=== PATIENT | female | born 1945 | race Caucasian/White ===

== ENCOUNTER 2021-07-30 09:58 | Outpatient (REF) | payer MEDICARE, SELFPAY ==
[2021-07-30 11:17] LABS: MANUAL DIFF FLAG NO
[2021-07-30 11:31] LABS: Basophils Percent Auto 0.2 % (0-2); Eosinophils Absolute Auto 0.1 X10*3/uL (0.0-0.4); Hematocrit 43.4 % (37.0-47.0); Hemoglobin 13.3 g/dl (12.0-16.0); Imm Gran Abs Auto 0.04 X10*3/uL (0.00-0.03); Imm Gran Pct Auto 0.4 % (0.0-0.4); Lymphocytes Absolute Auto 1.9 X10*3/uL (1.2-4.9); Lymphocytes Percent Auto 20.2 % (20-40); Mean Corpuscular HGB Conc 30.6 g/dl (31.0-35.0); Mean Corpuscular Hemoglobin 28.1 pg (27.0-33.0); Mean Corpuscular Volume 91.6 fL (80.0-98.0); Mean Platelet Volume 11.6 fL (9.4-12.3); Monocytes Absolute Auto 0.9 X10*3/uL (0.1-1.2); Monocytes Percent Auto 9.6 % (2-11); Neutrophils Absolute Auto 6.3 x10*3/uL (2.0-8.3); Neutrophils Percent Auto 68.6 % (45-73); Platelet Count 265 X10*3/uL (160-400); Red Blood Count 4.74 X10*6/uL (4.20-5.50); Red Cell Distribution Width 14.3 % (11.0-16.0); White Blood Count 9.2 X10*3/uL (4.8-10.8)
[2021-07-30 11:38] LABS: INTERNATIONAL NORM RATIO 1.9 (0.9-1.1); Prothrombin Time 21.9 SEC (9.9-13.0)
[2021-07-30 12:02] LABS: Alanine Aminotransferase 16 U/L (0-31); Albumin Level 4.3 g/dL (3.5-5.0); Alkaline Phosphatase 65 U/L (39-117); Anion Gap 13 (12-20); Aspartate Amino Transferase 19 U/L (5-31); Bilirubin Total 0.5 mg/dL (0.0-1.0); Blood Urea Nitrogen 22 mg/dL (9-16); Calcium 9.6 mg/dL (8.4-10.2); Carbon Dioxide 27 mmol/L (22-29); Chloride 107 mmol/L (96-108); Cholesterol 201 mg/dL; Estimated Glomerular Filt Rate 44; Glucose Fasting 101 mg/dL (60-99); HDL Cholesterol 38 mg/dL; LDL Cholesterol Calculated 106 mg/dl; Potassium 4.6 mmol/L (3.3-5.1); Sodium 142 mmol/L (135-145); Total Protein 6.8 g/dL (6.5-8.0); Triglycerides 287 mg/dL
[2021-07-30 12:11] LABS: TSH reflex Free T4 1.17 uIU/mL (0.32-4.0); Vitamin D 25-OH Total 47.7 ng/mL (>30)
== END 2021-07-30 09:59 | disposition home or self-care (01) ==
LOC: HO.HMGCLDS 09:58
PROVIDERS: PCP Internal Medicine; Visit Provider Internal Medicine
DX: I48.91 Unspecified atrial fibrillation (principal); N18.9 Chronic kidney disease, unspecified; E78.5 Hyperlipidemia, unspecified; I10 Essential (primary) hypertension; J45.20 Mild intermittent asthma, uncomplicated; M19.90 Unspecified osteoarthritis, unspecified site; Z79.01 Long term (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; Z51.81 Encounter for therapeutic drug level monitoring
CPT/HCPCS: 36415; 80053; 80061; 82306; 84443; 85025; 85610

== ENCOUNTER 2021-08-06 09:33 | Outpatient (REF) | payer MEDICARE, SELFPAY ==
[2021-08-06 11:44] LABS: INTERNATIONAL NORM RATIO 2.1 (0.9-1.1)
== END 2021-08-06 09:34 | disposition home or self-care (01) ==
LOC: HO.HMGCLDS 09:33
PROVIDERS: Visit Provider Internal Medicine
DX: I48.91 Unspecified atrial fibrillation (principal)
CPT/HCPCS: 36415; 85610

== ENCOUNTER 2021-08-14 10:51 | Outpatient (REF) | payer MEDICARE, SELFPAY ==
[2021-08-14 12:01] LABS: INTERNATIONAL NORM RATIO 2.4 (0.9-1.1); Prothrombin Time 27.6 SEC (9.9-13.0)
== END 2021-08-14 10:52 | disposition home or self-care (01) ==
LOC: HO.HMGCLR 10:51
PROVIDERS: PCP Internal Medicine; Visit Provider Internal Medicine
DX: I48.91 Unspecified atrial fibrillation (principal)
CPT/HCPCS: 36415; 85610

== ENCOUNTER → 2021-08-30 10:27 | Outpatient (BNVA) | payer MEDICARE, SELFPAY | PROVIDERS: PCP Internal Medicine; Visit Provider Internal Medicine | DX: I48.91 Unspecified atrial fibrillation (principal); Z51.81 Encounter for therapeutic drug level monitoring; Z79.01 Long term (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 | CPT/HCPCS: 85610; 99202 ==

== ENCOUNTER → 2021-09-13 10:32 | Outpatient (BNVA) | payer MEDICARE, SELFPAY | PROVIDERS: PCP Internal Medicine; Visit Provider Internal Medicine | DX: I48.91 Unspecified atrial fibrillation (principal); Z51.81 Encounter for therapeutic drug level monitoring; Z79.01 Long term (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 | CPT/HCPCS: 85610; 99211 ==

== ENCOUNTER → 2021-09-30 15:27 | Outpatient (BNVA) | payer MEDICARE, SELFPAY | PROVIDERS: PCP Internal Medicine; Visit Provider Internal Medicine | DX: I48.91 Unspecified atrial fibrillation (principal); Z51.81 Encounter for therapeutic drug level monitoring; Z79.01 Long term (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 | CPT/HCPCS: 85610; 99211 ==

== ENCOUNTER → 2021-10-21 10:53 | Outpatient (BNVA) | payer MEDICARE, SELFPAY | PROVIDERS: PCP Internal Medicine; Visit Provider Internal Medicine | DX: I48.91 Unspecified atrial fibrillation (principal); Z79.01 Long term (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; Z51.81 Encounter for therapeutic drug level monitoring | CPT/HCPCS: 85610; 99211 ==

== ENCOUNTER → 2021-11-12 11:23 | Outpatient (BNVA) | payer MEDICARE, SELFPAY | PROVIDERS: PCP Internal Medicine; Visit Provider Internal Medicine | DX: I48.91 Unspecified atrial fibrillation (principal); Z51.81 Encounter for therapeutic drug level monitoring; Z79.01 Long term (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 | CPT/HCPCS: 85610; 99211 ==

== ENCOUNTER 2021-12-04 10:06 | Outpatient (REF) | payer MEDICARE, SELFPAY ==
[2021-12-04 11:13] LABS: MANUAL DIFF FLAG NO
[2021-12-04 11:26] LABS: Basophils Percent Auto 0.2 % (0-2); Eosinophils Absolute Auto 0.2 X10*3/uL (0.0-0.4); Eosinophils Percent Auto 2.1 % (0-4); Hematocrit 43.9 % (37.0-47.0); Hemoglobin 13.6 g/dl (12.0-16.0); Imm Gran Abs Auto 0.03 X10*3/uL (0.00-0.03); Imm Gran Pct Auto 0.3 % (0.0-0.4); Lymphocytes Absolute Auto 1.9 X10*3/uL (1.2-4.9); Lymphocytes Percent Auto 21.5 % (20-40); Mean Corpuscular Hemoglobin 28.4 pg (27.0-33.0); Mean Corpuscular Volume 91.6 fL (80.0-98.0); Mean Platelet Volume 11.4 fL (9.4-12.3); Monocytes Percent Auto 11.3 % (2-11); Neutrophils Absolute Auto 5.7 x10*3/uL (2.0-8.3); Neutrophils Percent Auto 64.6 % (45-73); Platelet Count 248 X10*3/uL (160-400); Red Blood Count 4.79 X10*6/uL (4.20-5.50); Red Cell Distribution Width 14.5 % (11.0-16.0); White Blood Count 8.9 X10*3/uL (4.8-10.8)
[2021-12-04 11:36] LABS: Alanine Aminotransferase 13 U/L (0-31); Anion Gap 12 (12-20); Aspartate Amino Transferase 19 U/L (5-31); Blood Urea Nitrogen 21 mg/dL (9-16); Calcium 9.5 mg/dL (8.4-10.2); Carbon Dioxide 29 mmol/L (22-29); Chloride 105 mmol/L (96-108); Cholesterol 188 mg/dL; Estimated Glomerular Filt Rate 39; Glucose Fasting 107 mg/dL (60-99); HDL Cholesterol 37 mg/dL; LDL Cholesterol Calculated 108 mg/dl; Potassium 4.3 mmol/L (3.3-5.1); Sodium 142 mmol/L (135-145); Triglycerides 219 mg/dL
[2021-12-04 12:00] LABS: Vitamin D 25-OH Total 55.3 ng/mL (>30)
== END 2021-12-04 10:07 | disposition home or self-care (01) ==
LOC: HO.HMGCLDS 10:06
PROVIDERS: Visit Provider Internal Medicine
DX: I48.91 Unspecified atrial fibrillation (principal); I12.9 Hypertensive chronic kidney disease with stage 1 through stage 4 chronic kidney disease, or unspecified chronic kidney disease; N18.9 Chronic kidney disease, unspecified; E78.5 Hyperlipidemia, unspecified; Z78.0 Asymptomatic menopausal state; Z79.01 Long term (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; N95.9 Unspecified menopausal and perimenopausal disorder
CPT/HCPCS: 36415; 80048; 80061; 82306; 84450; 84460; 85025

== ENCOUNTER → 2021-12-11 11:18 | Outpatient (BNVA) | payer MEDICARE, SELFPAY | PROVIDERS: PCP Internal Medicine; Visit Provider Internal Medicine | DX: I48.91 Unspecified atrial fibrillation (principal); Z79.01 Long term (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; Z51.81 Encounter for therapeutic drug level monitoring | CPT/HCPCS: 85610; 99211 ==

== ENCOUNTER → 2022-01-08 10:54 | Outpatient (BNVA) | payer MEDICARE, SELFPAY | PROVIDERS: PCP Internal Medicine; Visit Provider Internal Medicine | DX: I48.91 Unspecified atrial fibrillation (principal); Z79.01 Long term (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; Z51.81 Encounter for therapeutic drug level monitoring | CPT/HCPCS: 85610; 99211 ==

== ENCOUNTER → 2022-02-05 11:01 | Outpatient (BNVA) | payer MEDICARE, SELFPAY | PROVIDERS: PCP Internal Medicine; Visit Provider Internal Medicine | DX: I48.91 Unspecified atrial fibrillation (principal); Z51.81 Encounter for therapeutic drug level monitoring; Z79.01 Long term (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 | CPT/HCPCS: 85610; 99211 ==

== ENCOUNTER 2022-03-05 11:01 | Outpatient (REF) | payer MEDICARE, SELFPAY ==
[2022-03-05 12:15] LABS: INTERNATIONAL NORM RATIO 3.8 (0.9-1.1)
== END 2022-03-05 11:02 | disposition home or self-care (01) ==
LOC: HO.LAB 11:01
PROVIDERS: PCP Internal Medicine; Visit Provider Internal Medicine
DX: I48.91 Unspecified atrial fibrillation (principal); Z51.81 Encounter for therapeutic drug level monitoring; Z79.01 Long term (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
CPT/HCPCS: 36415; 85610; Q3014

== ENCOUNTER → 2022-03-19 10:49 | Outpatient (BNVA) | payer MEDICARE, SELFPAY | PROVIDERS: PCP Internal Medicine; Visit Provider Internal Medicine | DX: I48.91 Unspecified atrial fibrillation (principal); Z51.81 Encounter for therapeutic drug level monitoring; Z79.01 Long term (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 | CPT/HCPCS: 85610; 99211 ==

== ENCOUNTER → 2022-04-02 11:11 | Outpatient (BNVA) | payer MEDICARE, SELFPAY | PROVIDERS: PCP Internal Medicine; Visit Provider Internal Medicine | DX: I48.91 Unspecified atrial fibrillation (principal); Z51.81 Encounter for therapeutic drug level monitoring; Z79.01 Long term (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 | CPT/HCPCS: 85610; 99211 ==

== ENCOUNTER → 2022-04-16 11:26 | Outpatient (BNVA) | payer MEDICARE, SELFPAY | PROVIDERS: PCP Internal Medicine; Visit Provider Internal Medicine | DX: I48.91 Unspecified atrial fibrillation (principal); Z51.81 Encounter for therapeutic drug level monitoring; Z79.01 Long term (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 | CPT/HCPCS: 85610; 99211 ==

== ENCOUNTER → 2022-05-08 11:25 | Outpatient (BNVA) | payer MEDICARE, SELFPAY | PROVIDERS: PCP Internal Medicine; Visit Provider Internal Medicine | DX: I48.91 Unspecified atrial fibrillation (principal); Z79.01 Long term (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; Z51.81 Encounter for therapeutic drug level monitoring | CPT/HCPCS: 85610; 99211 ==

== ENCOUNTER → 2022-05-14 11:13 | Outpatient (BNVA) | payer MEDICARE, SELFPAY | PROVIDERS: PCP Internal Medicine; Visit Provider Internal Medicine | DX: I48.91 Unspecified atrial fibrillation (principal); Z79.01 Long term (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; Z51.81 Encounter for therapeutic drug level monitoring | CPT/HCPCS: 85610; 99211 ==

== ENCOUNTER → 2022-06-03 11:18 | Outpatient (BNVA) | payer MEDICARE, SELFPAY | PROVIDERS: PCP Internal Medicine; Visit Provider Internal Medicine | DX: I48.91 Unspecified atrial fibrillation (principal); Z79.01 Long term (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; Z51.81 Encounter for therapeutic drug level monitoring | CPT/HCPCS: 85610; 99211 ==

== ENCOUNTER 2022-06-09 07:07 | Outpatient (REF) | payer MEDICARE, SELFPAY ==
[2022-06-09 11:22] LABS: MANUAL DIFF FLAG NO
[2022-06-09 11:26] LABS: Basophils Percent Auto 0.5 % (0-2); Eosinophils Absolute Auto 0.2 X10*3/uL (0.0-0.4); Eosinophils Percent Auto 1.7 % (0-4); Hematocrit 43.3 % (37.0-47.0); Hemoglobin 13.5 g/dl (12.0-16.0); Imm Gran Abs Auto 0.03 X10*3/uL (0.00-0.03); Imm Gran Pct Auto 0.3 % (0.0-0.4); Lymphocytes Absolute Auto 2.5 X10*3/uL (1.2-4.9); Lymphocytes Percent Auto 28.6 % (20-40); Mean Corpuscular HGB Conc 31.2 g/dl (31.0-35.0); Mean Corpuscular Hemoglobin 28.7 pg (27.0-33.0); Mean Corpuscular Volume 92.1 fL (80.0-98.0); Mean Platelet Volume 11.9 fL (9.4-12.3); Monocytes Absolute Auto 0.9 X10*3/uL (0.1-1.2); Monocytes Percent Auto 10.1 % (2-11); Neutrophils Absolute Auto 5.1 x10*3/uL (2.0-8.3); Neutrophils Percent Auto 58.8 % (45-73); Platelet Count 262 X10*3/uL (160-400); Red Cell Distribution Width 14.4 % (11.0-16.0); White Blood Count 8.7 X10*3/uL (4.8-10.8)
[2022-06-09 12:24] LABS: Alanine Aminotransferase 13 U/L (0-31); Anion Gap 16 (12-20); Aspartate Amino Transferase 17 U/L (5-31); Blood Urea Nitrogen 23 mg/dL (9-16); Calcium 9.2 mg/dL (8.4-10.2); Carbon Dioxide 25 mmol/L (22-29); Chloride 105 mmol/L (96-108); Cholesterol 194 mg/dL; Estimated Glomerular Filt Rate 40; Glucose Fasting 112 mg/dL (60-99); HDL Cholesterol 35 mg/dL; LDL Cholesterol Calculated 109 mg/dl; Potassium 4.2 mmol/L (3.3-5.1); Sodium 142 mmol/L (135-145); Triglycerides 252 mg/dL
[2022-06-09 12:28] LABS: Vitamin D 25-OH Total 47.9 ng/mL (>30)
== END 2022-06-09 07:08 | disposition home or self-care (01) ==
LOC: HO.HMGCLDS 07:07
PROVIDERS: PCP Internal Medicine; Visit Provider Internal Medicine
DX: I12.9 Hypertensive chronic kidney disease with stage 1 through stage 4 chronic kidney disease, or unspecified chronic kidney disease (principal); N18.9 Chronic kidney disease, unspecified; E78.5 Hyperlipidemia, unspecified; N95.9 Unspecified menopausal and perimenopausal disorder; Z79.01 Long term (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
CPT/HCPCS: 36415; 80048; 80061; 82306; 84450; 84460; 85025

== ENCOUNTER → 2022-06-24 11:24 | Outpatient (BNVA) | payer MEDICARE, SELFPAY | PROVIDERS: PCP Internal Medicine; Visit Provider Internal Medicine | DX: I48.91 Unspecified atrial fibrillation (principal); Z79.01 Long term (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; Z51.81 Encounter for therapeutic drug level monitoring | CPT/HCPCS: 85610; 99211 ==

== ENCOUNTER → 2022-07-15 11:24 | Outpatient (BNVA) | payer MEDICARE, SELFPAY | PROVIDERS: PCP Internal Medicine; Visit Provider Internal Medicine | DX: I48.91 Unspecified atrial fibrillation (principal); Z79.01 Long term (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; Z51.81 Encounter for therapeutic drug level monitoring | CPT/HCPCS: 85610; 99211 ==

== ENCOUNTER → 2022-08-12 11:24 | Outpatient (BNVA) | payer MEDICARE, SELFPAY | PROVIDERS: PCP Internal Medicine; Visit Provider Internal Medicine | DX: I48.91 Unspecified atrial fibrillation (principal); Z79.01 Long term (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; Z51.81 Encounter for therapeutic drug level monitoring | CPT/HCPCS: 85610; 99211 ==

== ENCOUNTER → 2022-08-26 11:33 | Outpatient (BNVA) | payer MEDICARE, SELFPAY | PROVIDERS: PCP Internal Medicine; Visit Provider Internal Medicine | DX: I48.91 Unspecified atrial fibrillation (principal); Z79.01 Long term (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; Z51.81 Encounter for therapeutic drug level monitoring | CPT/HCPCS: 85610; 99211 ==

== ENCOUNTER → 2022-09-23 11:27 | Outpatient (BNVA) | payer MEDICARE, SELFPAY | PROVIDERS: PCP Internal Medicine; Visit Provider Internal Medicine | DX: I48.91 Unspecified atrial fibrillation (principal); Z79.01 Long term (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; Z51.81 Encounter for therapeutic drug level monitoring | CPT/HCPCS: 85610; 99211 ==

== ENCOUNTER → 2022-10-15 11:31 | Outpatient (BNVA) | payer MEDICARE, SELFPAY | PROVIDERS: PCP Internal Medicine; Visit Provider Internal Medicine | DX: I48.91 Unspecified atrial fibrillation (principal); Z79.01 Long term (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; Z51.81 Encounter for therapeutic drug level monitoring | CPT/HCPCS: 85610; 99211 ==

== ENCOUNTER → 2022-10-29 12:12 | Outpatient (BNVA) | payer MEDICARE, SELFPAY | PROVIDERS: PCP Internal Medicine; Visit Provider Internal Medicine | DX: Z79.01 Long term (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 (principal) ==

== ENCOUNTER 2022-12-25 15:27 | Outpatient (AMB) | payer MEDICARE, SELFPAY ==
[2022-12-25 15:40] VITALS: BP 118/78; PULSE 85; O2SAT 94; BMI 52.2
--- NOTE | 2022-12-25 15:40 | A.OFFPC_ITS ---
Vital Signs 12/25/22 15:40 Height 5 ft 1 in Weight 276 lb 6 oz BMI 52.2 BP 118/78 Blood Pressure Location Rt radial Position Sitting Pulse 85 Pulse Source Pulse Oximeter Pulse Oximetry (%) 94 Oxygen Delivery Method Room Air Intake Visit Reasons: Annual Physical- insurance pays for PE Intake Note: Pt is here today for her PE Allergies No Known Allergies Allergy (Verified 12/31/23 15:21) Medication List - Last Reconciled 12/25/22 by Shantelle Ba MD albuterol sulfate 90 mcg/actuation 1 inh inhalation Q6H PRN apixaban (Eliquis) 5 mg PO BID aspirin 81 mg PO DAILY budesonide-formoterol 160-4.5 mcg/actuation (Symbicort) 1 puff PO Q12H cholecalciferol (vitamin D3) 25 mcg PO DAILY furosemide 20 mg PO DAILY isosorbide mononitrate ER 30 mg PO QAM lovastatin 20 mg PO DAILY metoprolol succinate ER 100 mg PO DAILY dbkqqmar-xytwlin-dqha-lutein tabs PO multivitamin 1 tab PO DAILY omega 1-ayk-ocj-fish oil 1,000 mg (120 mg-180 mg) (Fish Oil) 1 cap PO DAILY propafenone 150 mg PO BID rosuvastatin 20 mg PO BEDTIME Tobacco use date assessed: 12/25/22 Fall risk assessment: No Falls in past year Last assessed Fall Risk: 12/25/22 HPI Annual Physical- insurance pays for PE HPI Details 77-year-old lady here today for physical exam. She has mild intermittent asthma, osteoarthritis, dyslipidemia, chronic kidney disease, hypertension, coronary artery disease, atrial fibrillation currently on apixaban, followed by [facility],. 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 She had a fasting lipid panel done at [facility] 10/24/2022 which showed total cholesterol 150, triglycerides 162, HDL 46 and LDL cholesterol 72 mg/dL, her electrolytes were within normal limits except for a GFR 49 and serum creatinine at 1.1 , CBC was within normal limits. Patient declined getting colon cancer screening or breast cancer screenings in the past. Has had COVID vaccines in the past and up-to-date with flu vaccine and Prevnar 20. Patient is mostly sedentary, denies any chest pain or headache, no lightheadedness or syncopal attacks. She does get short of breath on dnco-lc-mghjlylh exertion. [facility] Medical History (Updated 06/23/24 @ 00:13 by Shantelle Ba MD) Lymphedema of both lower extremities Stress incontinence Chronic kidney disease Diverticulitis Atrial fibrillation Mild intermittent asthma Osteoarthritis Dyslipidemia Essential hypertension Surgical History Hx of colonoscopy History of tubal ligation Family History Son Esophageal cancer Social History Housing: Apartment Alcohol intake: current Alcohol intake frequency: holidays/special occasions only Patient Tobacco Use Status: Former Tobacco user Tobacco use type: Cigarette Years Smoked: 40 yrs e-Cigarette/Vaping Use: Never Used service: No Current occupational status: retired Current occupation: retired- [employer] Current occupational exposures/hazards: No Cognitive needs: No Hearing needs: No Vision needs: Yes Questionnaire PHQ-9 Over the last 2 weeks, how often have you been bothered by any of the following problems? 1. Little interest or pleasure in doing things: not at all 2. Feeling down, depressed, or hopeless: not at all 3. Trouble falling or staying asleep, or sleeping too much: not at all 4. Feeling tired or having little energy: not at all 5. Poor appetite or overeating: not at all 6. Feeling bad about yourself - or that you are a failure or have let yourself or your family down: not at all 7. Trouble concentrating on things, such as reading the newspaper or watching television: not at all 8. Moving or speaking so slowly that other people could have noticed. Or the opposite - being so fidgety or restless that you have been moving around a lot more than usual: not at all 9. Thoughts that you would be better off or of hurting yourself in some way: not at all Total score: 0 Depression Screening Interpretation: Negative 17436 - PHQ-9 Billing: Yes Source: Developed by Collin Fuenteset B.W. Tj, Jorge Petty and colleagues, with an educational lisa from [employer]. Thrive Questionnaire Date Thrive assessed: 12/25/22 I am a: Patient What is your living situation today?: I have a steady place to live Within the past 12 months, did the food you bought not last and you didn't have the money to get more?: Never true Within the past 12 months, did you worry whether your food would run out before you got money to buy more?: Never true Do you have trouble paying for medicines?: No Do you have trouble getting transportation to medical appointments?: No Do you have trouble paying your heating and electricity bill?: No Do you have trouble taking care of your child, family member or friend?: No Do you have trouble with day-to-day activities such as bathing, preparing meals, shopping, managing finances, etc.?: No Are you currently unemployed and looking for a job?: No Are you interested in more education?: No AUDIT C Alcohol Use Questionnaire (AUDIT-C) 1. How often do you have a drink containing alcohol?: Never 3. How often do you have six or more drinks on one occasion?: Never Total Score: 0 JIE-7 AMB Questionnaire JIE-7 Date JIE - 7 assessed: 12/25/22 Feeling nervous, anxious, or on edge: 0 = Not at all Not being able to stop or control worryin = Not at all Worrying too much about different things: 0 = Not at all Trouble relaxin = Not at all Being so restless that it is hard to sit still: 0 = Not at all Becoming easily annoyed or irritable: 0 = Not at all Feeling afraid as if something awful might happen: 0 = Not at all Total JIE-7 score (0-4 normal; 5-9 mild; 10-14 moderate; 15-21 severe): 0 Source: Developed by Drs. Ney Mcwilliams, Saloni Spencer, Jorge Petty and colleagues, with an educational lisa from [employer]. JIE-7 Assessment Billing JIE-7 Assessment Tool: JIE-7 Assessment 69611 Review of Systems Const Denies fever(s), Denies frequent falls, Denies lethargy and Denies malaise Eyes Denies change in vision ENT Reports no additional complaints Card Denies chest pain, Reports irregular heart rhythm and Denies lightheadedness Resp Denies cough GI Denies abdominal pain, Denies melena, Denies change in bowel habits and Denies heartburn Denies hematuria, Reports urinary incontinence and Denies vaginal discharge Musc Reports arthralgias (Both knees) and Reports stiffness Skin/Breast Denies breast pain, Denies breast mass and Denies rash Neuro Denies frequent falls Psych Reports no additional complaints Endo Reports no additional complaints Lázaro/Lymph Denies easy bleeding and Denies easy bruising Aller/Immun Reports no additional complaints Physical exam (Primary Care) Vital Signs: Last Vital Signs Pulse 85 12/25/22 15:40 BP 118/78 12/25/22 15:40 Pulse Ox 94 12/25/22 15:40 Oxygen Delivery Method Room Air 12/25/22 15:40 BMI result Body Mass Index 52.2 Tobacco/Smoking Status: Tobacco use Status Tobacco use date assessed 12/25/22 12/25/22 15:50 Patient Tobacco Use Status Former Tobacco user 12/25/22 15:50 Tobacco use type Cigarette 12/25/22 15:50 e-Cigarette/Vaping Use Never Used 12/25/22 15:50 PHQ-9: PHQ-9 Score PHQ-9: Total score 0 06/23/24 00:11 Depression Screening Interpretation: Negative Thrive Assessment: Date of Thrive Assessment Date Thrive assessed 12/25/22 12/25/22 16:04 Const Other: Morbidly obese, alert, oriented x3, ambulatory with assistance of a cane, daughter present during visit Orientation/consciousness: patient oriented x3 [facility] Head: Yes normocephalic General nose exam: Normal external nose present Face and sinus: Yes face symmetric Mouth: Normal oral and palatal mucosa present, oropharynx normal and moist mucous membranes Eyes General: appearance normal, both eyes and all related structures Neck Neck: Yes full ROM, Yes no lymphadenopathy, Yes no meningeal signs and Yes supple Resp Effort & Inspection: normal respiratory effort and able to speak in complete sentences Auscultation: clear to auscultation bilaterally Cardio Other: irregularly irregular rhythm GI Other: Morbidly obese, normal bowel sounds soft,, Inspection: Yes Abdominal panniculus present Palpation (GI): Soft to palpation, nontender, no guarding and no masses Auscultation: normal bowel sounds General: Yes no CVA tenderness Back/Spine/Pelvis Back: no CVA tenderness and No back tenderness Skin General skin exam: no rashes or lesions noted Neuro General: patient oriented x3, moves all extremities, Normal light touch and pain sensation, no meningeal signs and no focal motor deficits Extrem Other: Trace pedal edema bilaterally Psych Appearance: grossly normal Mental Status: mental status grossly normal Speech and movement: Normal speech and movement present Affect: normal affect Attitude: cooperative Thought process: Normal thought process present Coding Level of Care Code Est Pt Prev Care >65y(96161) Diagnoses Annual visit for general adult medical examination with abnormal findings Z00.01 Dyslipidemia E78.5 Essential hypertension I10 Primary osteoarthritis involving multiple joints M15.0 Osteoarthritis location: multiple joints Osteoarthritis type: primary Lymphedema of both lower extremities I89.0 Mild intermittent asthma without complication J45.20 Asthma complication type: uncomplicated Atrial fibrillation I48.91 Chronic kidney disease N18.9 Current use of anticoagulant therapy Z79.01 Additional Codes JIE-7 Assessment Billing - JIE-7 Assessment Tool: JIE-7 Assessment 25134 ([id number])
== END 2022-12-25 17:02 | disposition home or self-care (01) ==
LOC: HO.HMGC 15:27
PROVIDERS: PCP Internal Medicine; Visit Provider Internal Medicine
DX: Z00.01 Encounter for general adult medical examination with abnormal findings (principal); E78.5 Hyperlipidemia, unspecified; I12.9 Hypertensive chronic kidney disease with stage 1 through stage 4 chronic kidney disease, or unspecified chronic kidney disease; M15.0 Primary generalized (osteo)arthritis; I89.0 Lymphedema, not elsewhere classified; J45.20 Mild intermittent asthma, uncomplicated; I48.91 Unspecified atrial fibrillation; N18.9 Chronic kidney disease, unspecified; Z79.01 Long term (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
CPT/HCPCS: 99499

== ENCOUNTER 2023-09-19 11:22 | Outpatient (AMB) | payer MEDICARE, SELFPAY ==
[2023-09-19 11:34] VITALS: BP 110/68; PULSE 99; TEMP 36.7; O2SAT 95; BMI 52.9
--- NOTE | 2023-09-19 11:34 | AM.OFFWIN_ITS ---
Intake Vital Signs 09/19/23 11:34 Height 5 ft 1 in Weight 280 lb BMI 52.9 BP 110/68 Blood Pressure Location Lt radial Position Sitting Pulse 99 Pulse Source Pulse Oximeter Temp 98.0 F Temp Source Oral Pulse Oximetry (%) 95 Oxygen Delivery Method Room Air Intake Visit Reasons: EP ?UTI Intake Note: Pt is here today c/o ?UTI Patient Tobacco Use Status: Former Tobacco user Allergies No Known Allergies Allergy (Verified 09/19/23 11:44) HPI HPI Comments History of Present Illness Details 78-year-old female presents for present UTI. Burning with urination x1 day denies fevers chills or back pain. PFSH Medical History (Updated 12/25/22 @ 16:50 by Shantelle Ba MD) Lymphedema of both lower extremities Stress incontinence Chronic kidney disease Diverticulitis Atrial fibrillation Mild intermittent asthma Osteoarthritis Dyslipidemia Essential hypertension Surgical History Hx of colonoscopy History of tubal ligation Family History Son Esophageal cancer Social History Housing: Apartment Alcohol intake: current Alcohol intake frequency: holidays/special occasions only Patient Tobacco Use Status: Former Tobacco user Tobacco use type: Cigarette Years Smoked: 40 yrs e-Cigarette/Vaping Use: Never Used service: No Current occupational status: retired 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 Current occupational exposures/hazards: No Cognitive needs: No Hearing needs: No Vision needs: Yes Review of Systems GI Details: Burning with urination Physical Exam Vital Signs: Last Vital Signs Temp 98.0 F 09/19/23 11:34 Pulse 99 09/19/23 11:34 BP 110/68 09/19/23 11:34 Pulse Ox 95 09/19/23 11:34 Oxygen Delivery Method Room Air 09/19/23 11:34 BMI result Body Mass Index 52.9 Const General: cooperative, no acute distress and alert Orientation/consciousness: patient oriented x3 Limitations: no limitations HEENT Head: Yes normal to inspection Ears: hearing grossly normal bilaterally and external ears normal General nose exam: Normal external nose present Eyes General: appearance normal, both eyes and all related structures Neck Neck: Yes normal visual inspection Chest Chest palpation & inspection: normal inspection of the chest Resp Effort & Inspection: normal respiratory effort, able to speak in complete sentences and no audible wheezes Auscultation: clear to auscultation bilaterally Cardio Rate: regular rate Rhythm: regular rhythm GI Inspection: Yes normal to inspection Palpation (GI): Soft to palpation and nontender Back/Spine/Pelvis Other: No CVA tenderness Skin General skin exam: no rashes or lesions noted Neuro General: patient oriented x3 Psych Appearance: grossly normal Mental Status: mental status grossly normal Speech and movement: Normal speech and movement present Affect: normal affect Attitude: cooperative Thought process: Normal thought process present Thought content: Normal thought content present Results AMB Urinalysis, Automated UA Leukoctes 125 Monster/uL Last Edit by Hanna Metzger CMA on 09/19/23 11:44 UA Nitrite Negative Last Edit by Hanna Metzger CMA on 09/19/23 11:44 UA Urobilinogen 0.2 mg/dL Last Edit by Hanna Metzger CMA on 09/19/23 11:44 UA Protein 30 mg/dL Last Edit by Hanna Metzger CMA on 09/19/23 11:44 UA pH 6.0 Last Edit by Hanna Metzger CMA on 09/19/23 11:44 UA Blood 200 Tin/uL Last Edit by Hanna Metzger CMA on 09/19/23 11:44 UA Specific [place] 1.025 Last Edit by Hanna Metzger CMA on 09/19/23 11:44 UA Ketone Negative Last Edit by Hanna Metzger CMA on 09/19/23 11:44 UA Bilirubin 0 mg/dL Last Edit by Hanna Metzger CMA on 09/19/23 11:44 UA Glucose 0 mg/dL Last Edit by Hanna Metzger CMA on 09/19/23 11:44 Results Reviewed Results Reviewed: Laboratory Last Values Urine pH (Auto) 6.0 09/19/23 11:42 Specific [place] (Auto) 1.025 09/19/23 11:42 Urine Protein (Auto) 30 mg/dL 09/19/23 11:42 Glucose (UA)(Auto) 0 mg/dL 09/19/23 11:42 Urine Ketones (Auto) Negative 09/19/23 11:42 Urine Blood (Auto) 200 Tin/uL 09/19/23 11:42 Urine Nitrite (Auto) Negative 09/19/23 11:42 Urine Bilirubin (Auto) 0 mg/dL 09/19/23 11:42 Urine Urobilinogen (Auto) 0.2 mg/dL 09/19/23 11:42 Leukocyte Esterase (Auto) 125 Monster/uL 09/19/23 11:42 Assessment & Plan Assessment & Plan (1) UTI (urinary tract infection): Code(s): N39.0 - Urinary tract infection, site not specified Qualifiers: Urinary tract infection type: acute cystitis Hematuria presence: without hematuria Qualified Code(s): N30.00 - Acute cystitis without hematuria Plan: Macrobid b.i.d. x 5 days Orders: Orders AMB Urinalysis Automated Today Z13.9 - Encounter for screening, unspecified Medications: New nitrofurantoin monohyd/m-cryst 100 mg (Macrobid) must administer with a meal/food 100 mg PO BID 5 days 10 caps 0RF phenazopyridine (Pyridium) 100 mg PO TID PRN 6 tabs 0RF pain Coding Level of Care Code Est Pt Level 3 (92831) Diagnoses Acute cystitis without hematuria N30.00 Urinary tract infection type: acute cystitis Hematuria presence: without hematuria
== END 2023-09-19 12:01 | disposition home or self-care (01) ==
PROVIDERS: PCP Internal Medicine; Visit Provider Physician Assistant
DX: N30.00 Acute cystitis without hematuria (principal)
CPT/HCPCS: 81003; 99051; 99213

== ENCOUNTER 2023-12-31 14:45 | Outpatient (AMB) | payer MEDICARE, SELFPAY ==
[2023-12-31 15:01] VITALS: BP 124/70; PULSE 76; O2SAT 96; BMI 52.5
--- NOTE | 2023-12-31 15:01 | A.OFFPC_ITS ---
Vital Signs 12/31/23 15:01 Height 5 ft 1 in Weight 278 lb BMI 52.5 BP 124/70 Blood Pressure Location Lt radial Position Sitting Pulse 76 Pulse Source Pulse Oximeter Pulse Oximetry (%) 96 Oxygen Delivery Method Room Air Intake Visit Reasons: PE Intake Note: Pt is here today for her PE Allergies No Known Allergies Allergy (Verified 12/31/23 15:21) Medication List - Last Reconciled 12/31/23 by Shantelle Ba MD albuterol sulfate 90 mcg/actuation 1 inh inhalation Q6H PRN apixaban (Eliquis) 5 mg PO BID aspirin 81 mg PO DAILY budesonide-formoterol 160-4.5 mcg/actuation (Symbicort) 1 puff PO Q12H cholecalciferol (vitamin D3) 25 mcg PO DAILY furosemide 20 mg PO DAILY isosorbide mononitrate ER 30 mg PO QAM metoprolol succinate ER 100 mg PO DAILY fmhyhodk-dinmybo-caiu-lutein tabs PO omega 5-myg-woa-fish oil 1,000 mg (120 mg-180 mg) (Fish Oil) 1 cap PO DAILY rosuvastatin 20 mg PO BEDTIME Tobacco use date assessed: 12/31/23 Fall risk assessment: No Falls in past year Last assessed Fall Risk: 12/31/23 Dental Screening Dental Screen Date: 12/31/23 Did you have a dental visit in the last 12 months?: Yes Did you have a dental problem in the last 6 months where you did not have access to dental care?: Yes Was dental information given to patient?: Patient has dentist HPI PE HPI Details 78-year-old lady with history of chronic kidney disease, atrial fibrillation currently on apixaban, moderate to severe aortic stenosis, coronary artery disease followed by [facility], has mild intermittent asthma, osteoarthritis, dyslipidemia, hypertension and lymphedema in both lower extremities, here today for her physical exam. She has been feeling well, is sedentary, denies any chest pain, lightheadedness syncopal attacks, but does get shortness of breath on pfkv-tq-khwyokip exertion. She has never had a screening mammogram or colon cancer screening, has declined both testing in the past. Up-to-date with her flu vaccine and pneumonia vaccine, has had COVID vaccination in the past but has not yet had the latest booster. [facility] Medical History (Updated 06/23/24 @ 00:13 by Shantelle Ba MD) Lymphedema of both lower extremities Stress incontinence Chronic kidney disease Diverticulitis Atrial fibrillation Mild intermittent asthma Osteoarthritis Dyslipidemia Essential hypertension Surgical History Hx of colonoscopy History of tubal ligation Family History Son Esophageal cancer Social History Housing: Apartment Alcohol intake: current Alcohol intake frequency: holidays/special occasions only Patient Tobacco Use Status: Former Tobacco user Tobacco use type: Cigarette Years Smoked: 40 yrs e-Cigarette/Vaping Use: Never Used service: No 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 1. Little interest or pleasure in doing things: not at all 2. Feeling down, depressed, or hopeless: not at all 3. Trouble falling or staying asleep, or sleeping too much: not at all 4. Feeling tired or having little energy: not at all 5. Poor appetite or overeating: not at all 6. Feeling bad about yourself - or that you are a failure or have let yourself or your family down: not at all 7. Trouble concentrating on things, such as reading the newspaper or watching television: not at all 8. Moving or speaking so slowly that other people could have noticed. Or the opposite - being so fidgety or restless that you have been moving around a lot more than usual: not at all 9. Thoughts that you would be better off or of hurting yourself in some way: not at all Total score: 0 Depression Screening Interpretation: Negative Depression Screening Done: Yes 12151 - PHQ-9 Billing: Yes Source: Developed by Drs. Ney Mcwilliams, Saloni Spencer, Jorge Petty and colleagues, with an educational lisa from [employer]. Thrive Questionnaire Date Thrive assessed: 12/31/23 I am a: Patient What is your living situation today?: I have a steady place to live Within the past 12 months, did the food you bought not last and you didn't have the money to get more?: Never true Within the past 12 months, did you worry whether your food would run out before you got money to buy more?: Never true Do you have trouble paying for medicines?: No Do you have trouble getting transportation to medical appointments?: No Do you have trouble paying your heating and electricity bill?: No Do you have trouble taking care of your child, family member or friend?: No Do you have trouble with day-to-day activities such as bathing, preparing meals, shopping, managing finances, etc.?: No Are you currently unemployed and looking for a job?: No Are you interested in more education?: No THRIVE Score: 0 AUDIT C Alcohol Use Questionnaire (AUDIT-C) 1. How often do you have a drink containing alcohol?: Never Total Score: 0 JIE-7 AMB Questionnaire JIE-7 Date JIE - 7 assessed: 12/31/23 Feeling nervous, anxious, or on edge: 0 = Not at all Not being able to stop or control worryin = Not at all Worrying too much about different things: 0 = Not at all Trouble relaxin = Not at all Being so restless that it is hard to sit still: 0 = Not at all Becoming easily annoyed or irritable: 0 = Not at all Feeling afraid as if something awful might happen: 0 = Not at all Total JIE-7 score (0-4 normal; 5-9 mild; 10-14 moderate; 15-21 severe): 0 Source: Developed by Drs. Ney Mcwilliams, Saloni Spencer, Jorge Petty and colleagues, with an educational lisa from [employer]. Review of Systems Const Denies fever(s), Denies frequent falls, Denies lethargy and Denies malaise Eyes Denies change in vision ENT Reports no additional complaints Card Denies chest pain, Reports irregular heart rhythm and Denies lightheadedness Resp Denies cough GI Denies abdominal pain, Denies melena, Denies change in bowel habits and Denies heartburn Denies hematuria, Reports urinary incontinence and Denies vaginal discharge Musc Reports arthralgias (Both knees) and Reports stiffness Skin/Breast Denies breast pain, Denies breast mass and Denies rash Neuro Denies frequent falls Psych Reports no additional complaints Endo Reports no additional complaints Lázaro/Lymph Denies easy bleeding and Denies easy bruising Aller/Immun Reports no additional complaints Physical exam (Primary Care) Vital Signs: Last Vital Signs Pulse 76 12/31/23 15:01 BP 124/70 12/31/23 15:01 Pulse Ox 96 12/31/23 15:01 Oxygen Delivery Method Room Air 12/31/23 15:01 BMI result Body Mass Index 52.5 Tobacco/Smoking Status: Tobacco use Status Tobacco use date assessed 12/31/23 12/31/23 15:12 Patient Tobacco Use Status Former Tobacco user 12/31/23 15:02 Tobacco use type Cigarette 12/31/23 15:02 e-Cigarette/Vaping Use Never Used 12/31/23 15:02 PHQ-9: PHQ-9 Score PHQ-9: Total score 0 06/22/24 23:47 Depression Screening Interpretation: Negative Thrive Assessment: Date of Thrive Assessment Date Thrive assessed 12/31/23 12/31/23 15:12 Advance Care Planning discussion: Completed/Scanned Date of discussion: 12/31/23 Who was present: patient and daughter Forms completed: Health Care Proxy and MOLST Time spent: 1-15 minutes, not on file Actual minutes spent: 10 Const Other: Morbidly obese, alert, oriented x3, ambulatory with assistance of a cane, daughter present during visit Orientation/consciousness: patient oriented x3 HENNV Head: Yes normocephalic General nose exam: Normal external nose present Face and sinus: Yes face symmetric Mouth: Normal oral and palatal mucosa present, oropharynx normal and moist mucous membranes Eyes General: appearance normal, both eyes and all related structures Neck Neck: Yes full ROM, Yes no lymphadenopathy, Yes no meningeal signs and Yes supple Resp Effort & Inspection: normal respiratory effort and able to speak in complete sentences Auscultation: clear to auscultation bilaterally Cardio Other: irregularly irregular rhythm GI Other: Morbidly obese, normal bowel sounds soft,, Inspection: Yes Abdominal panniculus present Palpation (GI): Soft to palpation, nontender, no guarding and no masses Auscultation: normal bowel sounds General: Yes no CVA tenderness Back/Spine/Pelvis Back: no CVA tenderness and No back tenderness Skin General skin exam: no rashes or lesions noted Neuro General: patient oriented x3, moves all extremities, Normal light touch and pain sensation, no meningeal signs and no focal motor deficits Extrem Other: Trace pedal edema bilaterally Psych Appearance: grossly normal Mental Status: mental status grossly normal Speech and movement: Normal speech and movement present Affect: normal affect Attitude: cooperative Thought process: Normal thought process present Coding Level of Care Code Est Pt Prev Care >65y(62352) Diagnoses Annual visit for general adult medical examination with abnormal findings Z00.01 Dyslipidemia E78.5 Essential hypertension I10 Primary osteoarthritis involving multiple joints M15.0 Osteoarthritis location: multiple joints Osteoarthritis type: primary Mild intermittent asthma without complication J45.20 Asthma complication type: uncomplicated Atrial fibrillation I48.91 Advanced directives, counseling/discussion Z71.89 Additional Codes Vital Signs *Quality* - Advance Care Planning discussion: Completed/Scanned ([id number]) Vital Signs *Quality* - Time spent: 1-15 minutes, not on file ([id number])
== END 2023-12-31 15:59 | disposition home or self-care (01) ==
PROVIDERS: Visit Provider Internal Medicine
DX: Z00.01 Encounter for general adult medical examination with abnormal findings (principal); E78.5 Hyperlipidemia, unspecified; I10 Essential (primary) hypertension; M15.0 Primary generalized (osteo)arthritis; J45.20 Mild intermittent asthma, uncomplicated; I48.91 Unspecified atrial fibrillation; Z71.89 Other specified counseling; Z00.00 Encounter for general adult medical examination without abnormal findings
CPT/HCPCS: 99499

== ENCOUNTER 2024-07-30 07:45 | Inpatient (IN) | payer MEDICARE, SELFPAY ==
[2024-07-30] VITALS (11 sets, daily range): BP systolic 109–162; BP diastolic 51–87; PULSE 61–139; RESP 16–22; TEMP 36.3–37.2; O2SAT 88–97; BMI 55.7
--- NOTE | ~2024-07-30 | XR_ITS ---
CLINICAL HISTORY: sob 2 view chest x-ray Comparison: None Findings: The lungs are clear. Normal size heart. No acute fracture. IMPRESSION: 1. No acute findings. This document has been electronically signed by: Milo Ferrer MD on 07/30/2024 08:28:43
--- OUTSIDE RECORDS SUMMARY | 2024-07-30 07:47 | XMS_ITS ---
Author Organization [facility] Address [address] [place] [address] Care Team Providers Care Hyperion Administrator Name Role Phone Mejia JOHNSON, Shantelle Bee Primary Care Provider Un available Candy, Franki Unavailable [phone] Allergies No Known Allergies REASON FOR VISIT At Risk Footcare, Painful Nail(s) aggrevated by shoes and causing difficulty standing/walking. Medications Medication SIG (Take, Route, Frequency, Duration) Notes Start Date End Date Status Isosorbide Mononitrate Active Albuterol Active Symbicort Active Fish Oil 1000 MG 1 capsule Orally Onc e a day Active Centrum Silver Activ e Aspirin Low Dose 81 MG 1 tablet Orally O nce a day Active Rosuvastatin Calcium 20 MG 1 tablet Oral ly Once a day Active Metoprolol Succinate ER 100 MG 1 tablet Orally Once a day Active Eliquis 5 MG 1 tablet Orally Twic e a day Active Vitamin D3 Active Furosemide 20 MG 1 tablet Orally Once a day Active Social History Tobacco Use: Social History Observation Description Date Details (start date - stop date) Former Smoker NA - NA Tobacco Use/Smoking Question Answer Notes Are you a: former smoker Additional Findings: Tobacco Non-User Current no n-smoker Alcohol Screen Question Answer Notes Did you have a drink containing alcohol in the p ast year? No Points 0 Interpretation Negative Tobacco use other than smoking: Question Answer Notes Are you an other tobacco user? No Vital Signs Height 5 ft in 04/22/2024 Weight 272 lbs 04/22/2024 BMI 53.12 kg/m2 04/22/2024 Procedures Procedure Date Ordered Date Performed Result Body Sit e 55388-BMZGOXL NAIL, 6 OR MORE 04/22/2024 N/A 84098-LUKF SKIN LESIONS, 2 TO 4 04/22/2024 N/A Encounters Encounter Location Date Provider Diagnosis [facility] [address] [address] 04/22/2024 Franki Gupta Atherosclerosis of solomon artery of both lower extremities, with unspecified presence of clinical manifestation I70.203 ; Tinea unguium B35.1 ; Pain in right toe(s) M79.674 and Pain in left toe(s) M79.675 Assessments Encounter Date Diagnosis (ICD Code) Assessment Notes Treatment Notes Treatment Clinical Notes Section Notes 04/22/2024 Atherosclerosis of solomon artery of both lower extremities, with unspecified presence of clinical manifestation (ICD-10 - I70.203) 04/22/2024 Tinea unguium (ICD-10 - B35.1) 04/22/2024 Pain in right toe(s) (ICD-10 - M79.674) 04/22/2024 Pain in left toe(s) (ICD-10 - M79.675) Plan Of Treatment Pending Test Test Name Order Date 96335-AAQQRLE NAIL, 6 OR MORE 04/22/2024 07168-DYUD SKIN LESIONS, 2 TO 4 04/22/20 24 Next Appt Details Follow Up: prn, Reason: Provider Name:Franki Gupta , 11/01/2024 11:30:00 AM, [address] [place] [address], [id number], Procedure Notes * Category Sub-Category Detail Notes Debride Nail 6-10 Nail debridement Performance o f this nail treatment by a nonprofessional would put this patients foot and overall health at risk. Therefore, nail debridement was performed extensively to reduce/remove overall nail length, girth, thickness, subungual debris, and necrotic tissue, by manual and/or electrical means through the use of a nail nipper and/or dremel-type regrinder operator, to a more viable healthy nail plate or bed tissue 6-10. Silver nitrate used for any petechial bleeding as necessary. Definitive antifungal treatment options have been reviewed and discussed with the patient. The patient chooses, no pharmaceutical tx - 21133 Keratoma Treatment Parring or Cutting o f Benign Hyperkeratotic Lesion(s) (-56) 2-4 Lesions - The Benign hyperkeratotic lesions, as described above were pared, and/or cut utilizing a sterile 15 blade, tissue nippers, and/or dremel - 68149 , Q8 Progress Notes * Preeti ANTOINEDOB:1945 (79 yo F)Acc No.[id number]:04/22/2024 Progress Note Patient:?Preeti Antoine Provider:?Franki Gupta DPM :1945???Age:79 Y???Sex:Female D ate:04/22/2024 Address:[address] [place], [place] [id number] Pcp:Saw Lockwood Subjective: * Chief Complaints: * ???At Risk FootcarePainful N ail(s) aggrevated by shoes and causing difficulty standing/walking. * HPI: ???At Risk footcare:?Pt States Last PCP Visit:?Date?03/18/2024 * ROS:?General/Constitutional:?Nausea?denies.?Vomiting?denies.?Hunger Thirst?denies.?Loss appetite?denies.?Chills?denies.?Fatigue?denies.?Fever?denies.?Night Sweats?denies.?Unexplained weight loss?denies.?Unexplained weight gain?denies.?HEENTM:?Dentures?admits.?Dizziness?denies.?Glasses/contacts?admits.?Retinopathy?de nies.?Blurred/double vision?denies.?TMJ?denies.?Discharge/drainage?denies.?Implants?denies.?Sore throat?denies.?Dental implants?denies.?Hard of hearing ?admits.?Difficulty chewing/swallowing/speaking?denies.?Nose bleeds?denies.?Sore mouth?denies.?Respiratory:?On Oxygen?denies.?Pneumonia/pleurisy?denies.?Bronchitis?admits.?Emphysema?denies.?C oughing?denies.?Cough blood?denies.?Shortness of breath?admits.?Wheezing?admits.?Cardiovascular:?Pacemaker?denies.?MVP?denies.?WPW?denies.?CHF?denies.?Heart attack?denies.?Septal defect?denies.?Rapid beat?denies.?Chest pain ?denies.?Atrial Fib.?admits.?Murmur/Palpitations?denies.?Gastrointestinal:?Hemorrhoids?denies.?Stomach/Abdominal pain?denies.?Dark blood stool?denies.?Irritable bowel ?admits.?Constipation?denies.?Diarrhea?denies.?Hematology:?Swelling?admits.?Clots?denies.?Varicose Veins?admits.?Bruising?admits, on anticoagulants.?Bleeding problem?admits, on anticoagulants.?Genitourinary:?Blood urine?denies.?Frequent/Painfu/urination/bladder control?denies.?Kidney stones?denies.?Infection (UTI)?denies.?Nephropathy?denies.?sex trans dis (STD)?denies.?Prostate?denies.?Musculoskeletal:?Hammertoes?denies.?Bunions?denies.?Back Pain?denies.?Muscle Cramps/ Resting?denies.?Muscle cramps / walking?denies.?Generalized aches and pains?denies.?Weakness?denies.?Integ.:?Peguero?denies.?Scars?denies.?Corns/calluses?admits.?Ingrown nails?admits.?Painful nails?admits.?Open Sores?denies.?Rashes?denies.?Neurologic:?Difficulty sleeping?denies.?Brain disorder?denies.?Numbness?denies.?Balance trouble?denies.?Confusion?denies.?Fainting/blackouts?denies.?Tingling?denies.?Tr emors?denies.? * Medical History:? * Surgical History:?Denies Pas t Surgical History * Hospitalization/Major Diagno stic Procedure:?Denies Past Hospitalization * Family History:?Mother: dece ased, arthritis, heart attack, high blood pressure.?Father: , stroke, high blood pressure.?Siblings: stroke.? * Social History:?Tobacco Use:?Tobacco Use/Smoking?Are you a:?former smoker ?Additional Findings: Tobacco Non-User?Current non-smoker ?Tobacco use other than smoking?Are you an other tobacco user??No ???Drugs/Alcohol:?Drugs?Have you used drugs other than those for medical reasons in the past 12 months??No ?Alcohol Screen?Did you have a drink containing alcohol in the past year??No ?Points?0 ?Interpretation?Negative ???Miscellaneous:?Caffeine: yes, frequency: 1 per day. ?Children: yes, 3. ?no Exercise. ?Marital status: . ?Occupation: Unemployed. * Medications:?TakingVitamin D 3 Fish Oil 1000 MG Capsule 1 capsule Orally Once a dayCentrum Silver Albuterol Symbicort Isosorbide Mononitrate Furosemide 20 MG Tablet 1 tablet Orally Once a dayMetoprolol Succinate ER 100 MG Tablet Extended Release 24 Hour 1 tablet Orally Once a dayAspirin Low Dose 81 MG Tablet Chewable 1 tablet Orally Once a dayRosuvastatin Calcium 20 MG Tablet 1 tablet Orally Once a dayEliquis 5 MG Tablet 1 tablet Orally Twice a dayMedication List reviewed and reconciled with the patientTaking Vitamin D3 Taking Fish Oil 1000 MG Capsule 1 capsule Orally Once a dayTaking Centrum Silver Taking Albuterol Taking Symbicort Taking Isosorbide Mononitrate Taking Furosemide 20 MG Tablet 1 tablet Orally Once a dayTaking Metoprolol Succinate ER 100 MG Tablet Extended Release 24 Hour 1 tablet Orally Once a dayTaking Aspirin Low Dose 81 MG Tablet Chewable 1 tablet Orally Once a dayTaking Rosuvastatin Calcium 20 MG Tablet 1 tablet Orally Once a dayTaking Eliquis 5 MG Tablet 1 tablet Orally Twice a dayMedication List reviewed and reconciled with the patient * Allergies:?N.K.D.A.yes[Aller gies Verified] Objective: * Vitals:?Ht: 5 ft, Wt:272, BM I: 53.12, Shoe size:10, Ht-cm: 152.4 cm, Wt-k.38 kg. * Examination: ???Vascular: ?DP PULSES(B):? 0/4, B/L.?PT PULSES(B):? 0/4, B/L.?CAPILLARY FILL TIME:? delayed, all digits, B/L.?TROPHIC CONDITION-TEXTURE/ELASTICITY/TURGOR/HAIR GROWTH(B):? decreased, with sparse to absent hair growth, B/L.?TEMPERTURE GRADIENT(C):? decreased, cool to cool, proximal to distal, B/L.?PIGMENTATION:?rubrous, B/L.?EDEMA(C):?4/4 , pitting , without aching pain , Leg(s) , Ankle(s) , Foot , B/L.?CLAUDICATION(C):?denies, B/L.?REST PAIN:?denies, B/L.?Nails: ?NAILS are:? Elongated, overgrown, dystrophic, lytic, greater than 3mm thick, discolored and friable with crumbly malodorous subungual debris, with pain on palpation, TA, T1, T2, 1-5 Right foot, remaining nails are elongated, overgrown, dystrophic.?Dermatologic: ?SKIN FINDINGS:?Skin exam reveals Keratotic lesion(s) located at , Heel(s) , B/L.? Assessment: * Assessment: 1.?Tinea unguium - B35.1?2.? Atherosclerosis of solomon artery of both lower extremities, with unspecified presence of clinical manifestation - I70.203?3.?Pain in right toe(s) - M79.674?4.?Pain in left toe(s) - M79.675? Plan: * Treatment: 2.?Atherosclerosis of solomon artery of both lower extremities, with unspecified presence of clinical manifestation?Procedure: [id number] SKIN LESIONS, 2 TO 4 * Procedures:?Debride Nail 6-10:?Nail debridement?Performance of this nail treatment by a nonprofessional would put this patients foot and overall health at risk. Therefore, nail debridement was performed extensively to reduce/remove overall nail length, girth, thickness, subungual debris, and necrotic tissue, by manual and/or electrical means through the use of a nail nipper and/or dremel-type regrinder operator, to a more viable healthy nail plate or bed tissue 6-10. Silver nitrate used for any petechial bleeding as necessary. Definitive antifungal treatment options have been reviewed and discussed with the patient. The patient chooses, no pharmaceutical tx - 91074.?Keratoma Treatment:?Parring or Cutting of Benign Hyperkeratotic Lesion(s)?(-56) 2-4 Lesions - The Benign hyperkeratotic lesions, as described above were pared, and/or cut utilizing a sterile 15 blade, tissue nippers, and/or dremel - 46443 , Q8.? * Procedure Codes:?68717 DEBRI DE NAIL, 6 OR MORE, Modifiers: XS 39831 TRIM SKIN LESIONS, 2 TO 4, Modifiers: XS , Q8 * Follow Up:?prn * Images: * Sign off status: Completed true * Provider:?Franki Gupta DPM Date:?2023 Generated for Printi ng/Camron/eTransmitting on:?07/30/2024 07:47 AM EST History and Physical Notes * HPI (History of Present Illness) Category Sub-Category Detail Notes Category Not es At Risk footcare Pt States Last PCP Visit: Date: Examination Category Sub-Category Detail Notes Category Not es Dermatologic SKIN FINDINGS: Skin exam reveal s Keratotic lesion(s) located at , Heel(s) , B/L Vascular DP PULSES (B): 0/4, B/L PT PULSES (B): 0/4, B/L CAPILLARY FILL TIME: delayed, all digits , B/L TEMPERTURE GRADIENT (C): decreased, cool to cool, proximal to distal, B/L TROPHIC CONDITION-TEXTURE/ELASTICITY/TURGOR/HAIR GROWTH (B): decreased, with sparse to absent hair gr owth, B/L EDEMA (C): 4/4 , pitting , with out aching pain , Leg(s) , Ankle(s) , Foot , B/L CLAUDICATION (C): denies, B/L REST PAIN: denies, B/L PIGMENTATION: rubrous, B/L Nails NAILS are: Elongated, overg rown, dystrophic, lytic, greater than 3mm thick, discolored and friable with crumbly malodorous subungual debris, with pain on palpation, TA, T1, T2, 1-5 Right foot, remaining nails are elongated, overgrown, dystrophic
--- OUTSIDE RECORDS SUMMARY | 2024-07-30 07:48 | XMS_ITS ---
Author Organization [facility] Address [address] [place] [address] Care Team Providers Care Pattern Changer Name Role Phone Mejia JOHNSON, Shantelle Bee Primary Care Provider Un available Candy, Franki Unavailable [phone] Allergies No Known Allergies REASON FOR VISIT At Risk Footcare, Painful Nail(s) aggrevated by shoes and causing difficulty standing/walking., Ingrown Nail Medications Medication SIG (Take, Route, Frequency, Duration) Notes Start Date End Date Status Metoprolol Succinate ER 100 MG 1 tablet Orally Once a day Active Furosemide 20 MG 1 tablet Orally Once a day Active Isosorbide Mononitrate Active Symbicort Active Albuterol Active Centrum Silver Activ e Fish Oil 1000 MG 1 capsule Orally Onc e a day Active Vitamin D3 Active Eliquis 5 MG 1 tablet Orally Twic e a day Active Rosuvastatin Calcium 20 MG 1 tablet Oral ly Once a day Active Aspirin Low Dose 81 MG 1 tablet Orally O nce a day Active Social History Tobacco Use: [...] No Vital Signs Height 5 ft in 02/12/2024 Weight 272 lbs 02/12/2024 BMI 53.12 kg/m2 02/12/2024 Procedures Procedure Date Ordered Date Performed Result Body Sit e 01954-IJZUIDD NAIL, 6 OR MORE 02/12/2024 N/A 18315-Hpykqbpy Plate 02/12/2024 N/A 76239-IHLE SKIN LESIONS, 2 TO 4 02/12/2024 N/A Encounters Encounter Location Date Provider Diagnosis [facility] [address] [address] 02/12/2024 Franki Gupta Atherosclerosis of [place] artery of both lower extremities, with unspecified presence of clinical manifestation I70.203 ; Tinea unguium B35.1 ; Pain in right toe(s) M79.674 ; Pain in left toe(s) M79.675 and Ingrown nail L60.0 Assessments Encounter Date Diagnosis (ICD Code) Assessment Notes Treatment Notes Treatment Clinical Notes Section Notes 02/12/2024 Atherosclerosis of [place] artery of both lower extremities, with unspecified presence of clinical manifestation (ICD-10 - I70.203) 02/12/2024 Tinea unguium (ICD-10 - B35.1) 02/12/2024 Pain in right toe(s) (ICD-10 - M79.674) 02/12/2024 Pain in left toe(s) (ICD-10 - M79.675) 02/12/2024 Ingrown nail (ICD-10 - L60.0) Plan Of Treatment Pending Test Test Name Order Date 44555-ZWUVZQZ NAIL, 6 OR MORE 02/12/2024 67154-Wgayleuv Plate 02/12/2024 71134-ZVJI SKIN LESIONS, 2 TO 4 02/12/20 24 Next Appt Details Follow Up: prn, Reason: Provider Name:Franki Gupta , 11/01/2024 11:30:00 AM, [address] [place] [address], [id number], Procedure Notes * Category Sub-Category Detail Notes Nail Avulsion Procedure A fine sterile e levator was placed between the eponychium, nail fold, and nail plate to separate the structures. A sterile nail splitter, and/or sterile 316 blade, was then used to longitudinally section the nail along its entire length through the eponychium to the area under the nail fold. The offending portion of nail was from the nail bed with a rolling action and then removed with a hemostat. No underlying bone was identified. There was minimal bleeding as hemostasis was achieved through the temporary use of either a digital tourniquet or the aforementioned local with epinephrine. A bacitracin sterile dressing was applied. Local wound aftercare instructions were discussed and dispensed. The patient was informed of both conservative and future surgical procedures to prevent recurrence. Tylenol or Motrin was recommended for pain or discomfort (16365) , CIRCULATION: Pt was advised as to the risk of delayed or nonhealing due to circulation. Pt is to call the office with any questions, concerns, or complications Anesthesia 2cc of 1 percent Lid ocaine Plain local anesthesic utilizing aseptic technique Location Lateral nail border , TA Debride Nail 6-10 Nail debridement Nail debridem ent performed extensively to reduce/remove overall nail length, girth, thickness, subungual debris, and necrotic tissue, by manual and electrical means through the use of a nail nipper and/or dremel, to more viable healthy nail plate or bed tissue 1-5. Silver nitrate used for any petechial bleeding as necessary. Patient chooses, no pharmaceutical tx (84087) Keratoma Treatment Parring or Cutting o f Benign Hyperkeratotic Lesion(s) 00345 ( 2-4 Lesions ) - The Benign hyperkeratotic lesions, as described above were pared, and/or cut utilizing a sterile 15 blade, tissue nippers, and/or dremel , Q8 Progress Notes * Preeti ANTOINEDOB:1945 (78 yo F)Acc No.[id number]:02/12/2024 Progress Note Patient:?Preeti Antoine Provider:?Franki Gupta DPM :1945???Age:78 Y???Sex:Female D ate:02/12/2024 Address:[address] [place], [place] [id number] Pcp:Saw Lockwood Subjective: * Chief Complaints: * ???At Risk FootcarePainful N ail(s) aggrevated by shoes and causing difficulty standing/walking.Ingrown Nail * HPI: ???At Risk footcare:?Pt States Last PCP Visit:?Date?09/17/2023 * ROS:?General/Constitutional:?Nausea?denies.?Vomiting?denies.?Hunger Thirst?denies.?Loss appetite?denies.?Chills?denies.?Fatigue?denies.?Fever?denies.?Night Sweats?denies.?Unexplained weight loss?denies.?Unexplained [...] frequency: 1 per day. ?Children: yes, 3. ?Marital status: . * Medications:?TakingVitamin D 3 Fish Oil 1000 [...] Objective: * Vitals:?Ht: 5 ft, Wt:272, BM I:53.12, Shoe size:10. * Examination: ???Vascular: ?DP PULSES:? 0/4, B/L.?PT PULSES:? 0/4, B/L.?CAPILLARY FILL TIME:? delayed, all digits, B/L.?SKIN TEMPERTURE GRADIENT OF THE LOWER EXTERMITIES:? decreased, cool to cool, proximal to distal, B/L.?HAIR GROWTH/TEXTURE/ELASTICITY/TURGOR:? decreased, B/L.?PIGMENTATION:?rubrous, B/L.?EDEMA:?4/4 , pitting , without aching pain , Leg(s) , Ankle(s) , Foot , B/L.?CLAUDICATION:?denies, B/L.?REST PAIN:?denies, B/L.?Nails: ?NAILS are:? Elongated, overgrown, dystrophic, lytic, greater than 3mm thick, discolored and friable with crumbly malodorous subungual debris, with pain on palpation, TA, T1, T2, 1-5 Right foot, remaining nails are elongated, overgrown, dystrophic.?Ingrown Nail: ?INSPECTION:?Reveals nail incurvation, pain on palpation, groove hypertrophy , Lateral nail border , TA.?Dermatologic: ?SKIN FINDINGS:?Skin exam reveals Keratotic lesion(s) located at , Heel(s) , B/L.? Assessment: * Assessment: 1.?Tinea unguium - B35.1?2.? Atherosclerosis of [place] artery of both lower extremities, with unspecified presence of clinical manifestation - I70.203?3.?Pain in right toe(s) - M79.674?4.?Pain in left toe(s) - M79.675?5.?Ingrown nail - L60.0, Lateral nail border , TA? Plan: * Treatment: 2.?Atherosclerosis of che[place] artery of both lower extremities, with unspecified presence of clinical manifestation?Procedure: 64458-PECH SKIN LESIONS, 2 TO 4 3.?Ingrown nail?Procedure: 04138-Pkivfrps Plate * Procedures:?Debride Nail 6-10:?Nail debridement?Nail debridement performed extensively to reduce/remove overall nail length, girth, thickness, subungual debris, and necrotic tissue, by manual and electrical means through the use of a nail nipper and/or dremel, to more viable healthy nail plate or bed tissue 1-5. Silver nitrate used for any petechial bleeding as necessary. Patient chooses, no pharmaceutical tx (58181).?Keratoma Treatment:?Parring or Cutting of Benign Hyperkeratotic Lesion(s)?03090 ( 2-4 Lesions ) - The Benign hyperkeratotic lesions, as described above were pared, and/or cut utilizing a sterile 15 blade, tissue nippers, and/or dremel , Q8.?Nail Avulsion:?Location?Lateral nail border?,?TA.?Anesthesia?2cc of 1 percent Lidocaine Plain local anesthesic utilizing aseptic technique.?Procedure?A fine sterile elevator was placed between the eponychium, nail fold, and nail plate to separate the structures. A sterile nail splitter, and/or sterile 316 blade, was then used to longitudinally section the nail along its entire length through the eponychium to the area under the nail fold. The offending portion of nail was from the nail bed with a rolling action and then removed with a hemostat. No underlying bone was identified. There was minimal bleeding as hemostasis was achieved through the temporary use of either a digital tourniquet or the aforementioned local with epinephrine. A bacitracin sterile dressing was applied. Local wound aftercare instructions were discussed and dispensed. The patient was informed of both conservative and future surgical procedures to prevent recurrence. Tylenol or Motrin was recommended for pain or discomfort (23679) , CIRCULATION: Pt was advised as to the risk of delayed or nonhealing due to circulation. Pt is to call the office with any questions, concerns, or complications.? * Procedure Codes:?72053 DEBRI DE NAIL, 6 OR MORE, Modifiers: XS 39484 Avulsion Plate, Modifiers: XS , [id number] TRIM SKIN LESIONS, 2 TO 4, Modifiers: XS , Q8 * Follow Up:?prn * Images: * Sign off status: Completed Addendum: * ? true * Provider:?Franki Gupta DPM Date:?2023 Generated for Juli milton/Camron/eTransmitting on:?07/30/2024 07:47 AM EST History and Physical Notes * HPI (History of Present Illness) Category Sub-Category Detail Notes Category Not es At Risk footcare Pt States Last PCP Visit: Date: Examination Category Sub-Category Detail Notes Category Not es Ingrown Nail INSPECTION: Reveals nail inc urvation, pain on palpation, groove hypertrophy , Lateral nail border , TA Dermatologic SKIN FINDINGS: Skin exam reveal s Keratotic lesion(s) located at , Heel(s) , B/L Vascular DP PULSES (B): 0/4, B/L PT PULSES (B): 0/4, B/L CAPILLARY FILL TIME: delayed, all digits , B/L TEMPERTURE GRADIENT (C): decreased, cool to cool, proximal to distal, B/L TROPHIC CONDITION-TEXTURE/ELASTICITY/TURGOR/HAIR GROWTH (B): decreased, B/L EDEMA (C): 4/4 , pitting , [...]
--- OUTSIDE RECORDS SUMMARY | 2024-07-30 07:48 | XMS_ITS | Patient Health Record ---
Author [facility] Address [address] [place] [address] Care Team Providers Care Software Development Leader Name Role Phone Mejia JOHNSON, Shantelle Bee Primary Care Provider Un available Franki Gupta Unavailable [phone] Allergies No Known Allergies Reason For Referral No Information Medications Medication SIG (Take, Route, Frequency, Duration) Notes Start Date End Date Status Vitamin D3 Active Eliquis 5 MG 1 tablet Orally Twic e a day Active Rosuvastatin Calcium 20 MG 1 tablet Oral ly Once a day Active Aspirin Low Dose 81 MG 1 tablet Orally O nce a day Active Metoprolol Succinate ER 100 MG 1 tablet Orally Once a day Active Furosemide 20 MG 1 tablet Orally Once a day Active Isosorbide Mononitrate Active Symbicort Active Albuterol Active Centrum Silver Activ e Fish Oil 1000 MG 1 capsule Orally Onc e a day Active Social History Tobacco Use: [...] Are you an other tobacco user? No Problems Problem Type SNOMED Code ICD Code Onset Dates Problem Status W/U Status Risk Notes Problem Atherosclerosis of q[place] arteries of the extremities (741210970919569) Atherosclerosis of [place] artery of both lower extremities, with unspecified presence of clinical manifestation (I70.203) Active confirmed Problem Essential hypertension (92685955) Essential hypertension (I10) Active confirmed Vital Signs Blood pressure diastolic 80 mm Hg 07/26/2024 Height 5 ft in 07/26/2024 Blood pressure systolic 123 mm Hg 07/26/2024 Weight 280 lbs 07/26/2024 BMI 54.68 kg/m2 07/26/2024 Procedures Procedure Date Ordered Date Performed Result Body Sit e 80058-VSLZNDT NAIL, 6 OR MORE 09/18/2023 N/A 89061-Ymrstyka Plate 09/18/2023 N/A 17786-XWEC SKIN LESIONS, 2 TO 4 09/18/2023 N/A 40826-EOXXPVK NAIL, 6 OR MORE 11/27/2023 N/A 20863-Kmcrykqf Plate 11/27/2023 N/A 81927-LGRQ SKIN LESIONS, 2 TO 4 11/27/2023 N/A 09875-EANNFBW NAIL, 6 OR MORE 02/12/2024 N/A 82550-Otqugiwf Plate 02/12/2024 N/A 33493-SMQE SKIN LESIONS, 2 TO 4 02/12/2024 N/A 76837-WRVFORB NAIL, 6 OR MORE 04/22/2024 N/A 93214-XVQO SKIN LESIONS, 2 TO 4 04/22/2024 N/A 38531-YEWBFKJ NAIL, 6 OR MORE 07/26/2024 N/A 11979-VUOU SKIN LESIONS, 2 TO 4 07/26/2024 N/A Encounters Encounter Location Date Provider Diagnosis [address] [address] 09/18/2023 Franki Gupta Atherosclerosis of [place] artery of both lower extremities, with unspecified presence of clinical manifestation I70.203 ; Tinea unguium B35.1 ; Pain in right toe(s) M79.674 ; Pain in left toe(s) M79.675 ; Ingrown nail L60.0 ; Pain in right foot M79.671 ; Pain in right ankle and joints of right foot M25.571 ; Bursitis of right foot M77.51 and Tailor's bunion of right foot M21.[address] [facility] [address] 11/27/2023 Franki Gupta Atherosclerosis of [place] artery of both lower extremities, with unspecified presence of clinical manifestation I70.203 ; Tinea unguium B35.1 ; Pain in right toe(s) M79.674 ; Pain in left toe(s) M79.675 and Ingrown nail L60.[address] [address] 02/12/2024 Franki Candy Atherosclerosis of [place] artery of both lower extremities, with unspecified presence of clinical manifestation I70.203 ; Tinea unguium B35.1 ; Pain in right toe(s) M79.674 ; Pain in left toe(s) M79.675 and Ingrown nail L60.[address] [address] 04/22/2024 Franki Candy Atherosclerosis of [place] artery of both lower extremities, with unspecified presence of clinical manifestation I70.203 ; Tinea unguium B35.1 ; Pain in right toe(s) M79.674 and Pain in left toe(s) M79.[address] [address] 07/26/2024 Frankiselena WallisCandy Atherosclerosis of [place] artery of both lower extremities, with unspecified presence of clinical manifestation I70.203 ; Tinea unguium B35.1 ; Pain in right toe(s) M79.674 and Pain in left toe(s) M79.675 Assessments Encounter Date Diagnosis (ICD Code) Assessment Notes Treatment Notes Treatment Clinical Notes Section Notes 09/18/2023 Atherosclerosis of q[place] artery of both lower extremities, with unspecified presence of clinical manifestation (ICD-10 - I70.203) 11/27/2023 Tinea unguium (ICD-10 - B35.1) 11/27/2023 Atherosclerosis of [place] artery of both lower extremities, with unspecified presence of clinical manifestation (ICD-10 - I70.203) 02/12/2024 Tinea unguium (ICD-10 - B35.1) 02/12/2024 Atherosclerosis of [place] artery of both lower extremities, with unspecified presence of clinical manifestation (ICD-10 - I70.203) 04/22/2024 Tinea unguium (ICD-10 - B35.1) 04/22/2024 Atherosclerosis of [place] artery of both lower extremities, with unspecified presence of clinical manifestation (ICD-10 - I70.203) 07/26/2024 Tinea unguium (ICD-10 - B35.1) 07/26/2024 Atherosclerosis of [place] artery of both lower extremities, with unspecified presence of clinical manifestation (ICD-10 - I70.203) 07/26/2024 Pain in right toe(s) (ICD-10 - M79.674) 04/22/2024 Pain in right toe(s) (ICD-10 - M79.674) 02/12/2024 Pain in right toe(s) (ICD-10 - M79.674) 11/27/2023 Pain in right toe(s) (ICD-10 - M79.674) 09/18/2023 Tinea unguium (ICD-10 - B35.1) 09/18/2023 Pain in right toe(s) (ICD-10 - M79.674) 11/27/2023 Pain in left toe(s) (ICD-10 - M79.675) 02/12/2024 Pain in left toe(s) (ICD-10 - M79.675) 04/22/2024 Pain in left toe(s) (ICD-10 - M79.675) 07/26/2024 Pain in left toe(s) (ICD-10 - M79.675) 02/12/2024 Ingrown nail (ICD-10 - L60.0) 11/27/2023 Ingrown nail (ICD-10 - L60.0) 09/18/2023 Pain in left toe(s) (ICD-10 - M79.675) 09/18/2023 Ingrown nail (ICD-10 - L60.0) 09/18/2023 Pain in right foot (ICD-10 - M79.671) 09/18/2023 Pain in right ankle and joints of right foot (ICD-10 - M25.571) 09/18/2023 Bursitis of right foot (ICD-10 - M77.51) 09/18/2023 Tailor's bunion of right foot (ICD-10 - M21.621) Plan Of Treatment Pending Test Test Name Order Date 52387-DMZONHA NAIL, 6 OR MORE 09/18/2023 58616-KFCBGKI NAIL, 6 OR MORE 11/27/2023 93541-YMWTEQV NAIL, 6 OR MORE 02/12/2024 98329-KFMMFTP NAIL, 6 OR MORE 04/22/2024 34712-MAZPXKP NAIL, 6 OR MORE 07/26/2024 19089-Eyjcksyl Plate 02/12/2024 77076-Vhppgvma Plate 11/27/2023 65006-Hdsarjgf Plate 09/18/2023 36257-ZJVR SKIN LESIONS, 2 TO 4 09/18/19 54515-CMOL SKIN LESIONS, 2 TO 4 11/27/19 82144-UAXP SKIN LESIONS, 2 TO 4 02/12/20 84030-HEHJ SKIN LESIONS, 2 TO 4 04/22/20 11464-IKTW SKIN LESIONS, 2 TO 4 07/26/20 Next Appt Details Provider Name:Franki Gupta , 11/01/2024 11:30:00 AM, [address] [place], [address], Insurance Providers Payer Name Payer Address Payer Phone Subscriber Number Group Number Insured Name Patient Relationship to Insured Coverage Start Date Coverage End Date [employer] Medicare Complete [address] [address] [place] [address] [phone] [id number] Preeti Antoine Self - patient is the insured Medical (General) History Medical History History ICD Code Arthritis Knee pain CAD (Cholesterol) Diverticulosis Heart disease High blood pressure asthma Surgical History Surgery Date(Month/Year)
--- NOTE | 2024-07-30 07:53 | ECG_ITS ---
Test Reason : sob Blood Pressure : / mmHG Vent. Rate : 102 BPM Atrial Rate : 102 BPM P-R Int : 280 ms QRS Dur : 080 ms QT Int : 322 ms P-R-T Axes : 000 061 027 degrees QTc Int : 419 ms Sinus tachycardia with 1st degree A-V block with occasional Premature ventricular complexes Low voltage QRS Nonspecific ST abnormality Abnormal ECG No previous ECGs available Referred By: Generic ED Physician Electronically Signed By:Misael Ayala
[2024-07-30 08:13] LABS: MANUAL DIFF FLAG NO
[2024-07-30 08:15] LABS: Basophils Percent Auto 0.2 % (0-2); Hematocrit 37.3 % (37.0-47.0); Imm Gran Abs Auto 0.07 X10*3/uL (0.00-0.03); Imm Gran Pct Auto 0.7 % (0.0-0.4); Lymphocytes Absolute Auto 0.6 X10*3/uL (1.2-4.9); Lymphocytes Percent Auto 6.1 % (20-40); Mean Corpuscular HGB Conc 32.2 g/dl (31.0-35.0); Mean Corpuscular Hemoglobin 28.1 pg (27.0-33.0); Mean Corpuscular Volume 87.4 fL (80.0-98.0); Mean Platelet Volume 10.1 fL (9.4-12.3); Monocytes Absolute Auto 1.2 X10*3/uL (0.1-1.2); Monocytes Percent Auto 11.1 % (2-11); Neutrophils Absolute Auto 8.6 x10*3/uL (2.0-8.3); Neutrophils Percent Auto 81.9 % (45-73); Platelet Count 198 X10*3/uL (160-400); Red Blood Count 4.27 X10*6/uL (4.20-5.50); Red Cell Distribution Width 15.4 % (11.0-16.0); White Blood Count 10.5 X10*3/uL (4.8-10.8)
[2024-07-30 08:49] LABS: Alanine Aminotransferase 16 U/L (0-31); Alkaline Phosphatase 55 U/L (39-117); Anion Gap 13 (12-20); Aspartate Amino Transferase 27 U/L (5-31); Bilirubin Direct 0.2 mg/dL (0.0-0.5); Bilirubin Total 0.5 mg/dL (0.0-1.0); Blood Urea Nitrogen 15 mg/dL (9-16); Calcium 9.5 mg/dL (8.4-10.2); Carbon Dioxide 24 mmol/L (22-29); Chloride 109 mmol/L (96-108); Creatinine Clr Calc Pharmacy 51.8; Estimated Glomerular Filt Rate 49; Glucose Random 127 mg/dL (60-115); Lipase 46 U/L (8-78); Potassium 4.1 mmol/L (3.3-5.1); Sodium 142 mmol/L (135-145); Total Protein 6.7 g/dL (6.5-8.0)
[2024-07-30 08:53] LABS: B Type Natriuretic Peptide 745 pg/mL (<100); Influenza A PCR NEGATIVE (Negative); Influenza B PCR NEGATIVE (Negative); Resp Syncy Virus RNA Qual PCR NEGATIVE (Negative); SARS COV2 PCR INHOUSE POSITIVE (Negative)
--- NOTE | 2024-07-30 09:06 | ED_ITS ---
HPI - General Adult General Chief complaint: Dyspnea Stated complaint: SOB Time Seen by Provider: 07/30/24 09:02 Source: patient and family (patient's son in law) Mode of arrival: ambulatory Limitations: no limitations History of Present Illness ED Provider: Sandy Moulton PA-C HPI narrative: Patient is an 79 year old assigned female at with a history of HTN, atrial fib on anti coags, asthma, need for a cardiac valve replacement (cards through [place]), and CKD presenting to the emergency department today with cough and shortness of breath over the last 2 days. Patient states that over the last 2 days she has felt more short of breath and has had a cough. Patient denies any dizziness, lightheadedness, abdominal pain, nausea, vomiting, fever, chills, blurry vision, double vision, loss of vision, chest pain, back pain, night sweats, pain with urination, increased urinary frequency, increased urinary urgency, blood in her urine or stool, syncope or a near syncopal episode, recent trauma or falls, bowel incontinence, bladder incontinence, or any other complaints at this time. Onset (ago): day(s) (2) Relieving factors: none Exacerbating factors: other (ambulation) Associated symptoms: cough Treatments prior to arrival: none Related Data Home Medications ?Medication ?Instructions ?Recorded ?Confirmed cholecalciferol (vitamin D3) 25 25 mcg PO DAILY 07/30/21 07/30/24 mcg (1,000 unit) capsule metoprolol succinate 100 mg 100 mg PO DAILY 07/30/21 07/30/24 tablet,extended release 24 hr omega 4-fze-lnd-fish oil 1,000 mg 1 cap PO DAILY 06/12/22 07/30/24 (120 mg-180 mg) capsule (Fish Oil) apixaban 5 mg tablet (Eliquis) 5 mg PO BID 10/29/22 07/30/24 aspirin 81 mg tablet,delayed 81 mg PO DAILY 12/25/22 07/30/24 release isosorbide mononitrate 30 mg 30 mg PO DAILY 12/25/22 07/30/24 tablet,extended release 24 hr ntbkxdmd-rvysbfm-lixg-lutein tablet 1 tab PO DAILY 12/25/22 07/30/24 rosuvastatin 20 mg tablet 20 mg PO BEDTIME 12/25/22 07/30/24 furosemide 20 mg tablet 20 mg PO DAILY PRN fluid overload 07/30/24 07/30/24 vit C 250 mg-vit E 90 mg-zinc 40 1 tab PO BID 07/30/24 07/30/24 mg-copper 1 cr-gnhemg-mnvumg capsule (PreserVision AREDS-2) Previous Rx's ?Medication ?Instructions ?Recorded budesonide-formoterol HFA 160 1 puff PO Q12H #10.2 grams 01/18/24 mcg-4.5 mcg/actuation aerosol inhaler (Symbicort) albuterol sulfate 90 mcg/actuation 1 inh inhalation Q6H PRN shortness 07/21/24 aerosol inhaler of breath or wheezing #8.5 grams Allergies Allergy/AdvReac Type Severity Reaction Status Date / Time No Known Allergies Allergy Verified 07/30/24 07:49 Review of Systems 2 Constitutional: Constitutional: Reports no additional constitutional complaints, Denies chills, Denies fever(s) and Denies night sweats Eyes: Eyes: Reports no additional eye complaints, Denies blurry vision, Denies change in vision, Denies diplopia, Denies eye discharge, Denies loss of vision and Denies eye pain ENT: Denies dizziness Cardiovascular: Cardiovascular: Reports no additional cardiovascular complaints, Denies chest pain, Denies lightheadedness, Denies Loss of Consciousness and Reports dyspnea Respiratory: Respiratory: Reports no additional respiratory complaints, Reports cough and Reports dyspnea Gastrointestinal: Gastrointestinal: Reports no additional gastrointestinal complaints, Denies abdominal pain, Denies melena, Denies hematochezia, Denies change in bowel habits and Denies change in stool character Genitourinary: Genitourinary: Denies hematuria, Denies urinary frequency, Denies dysuria, Denies urinary incontinence, Denies urinary hesitancy and Denies urinary urgency Musculoskeletal: Musculoskeletal: Reports no additional musculoskeletal complaints, Denies numbness and Denies tingling Neurologic: Denies dizziness, Denies loss of vision, Denies numbness and Denies tingling Psychiatric: Psychiatric: Reports no additional psychiatric complaints Endocrine: Endocrine: Reports no additional endocrine complaints Hematologic/Lymphatic: Hematologic/Lymphatic: Reports no additional hematologic/lymphatic complaints Allergic/Immunologic: Allergic/Immunologic: Reports no additional allergic/immunologic complaints PMFSH Past Medical History Attestation statement: The following information was validated with the patient. Source: old records reviewed and nursing notes reviewed Medical History (Updated 07/30/24 @ 11:00 by JEN Griffith) Lymphedema Lymphedema of both lower extremities Stress incontinence Chronic kidney disease Diverticulitis Atrial fibrillation Mild intermittent asthma Osteoarthritis Dyslipidemia Essential hypertension Surgical History Hx of colonoscopy History of tubal ligation Family History Family History Son Esophageal cancer Social History Social History Housing: Apartment Alcohol intake: current Alcohol intake frequency: holidays/special occasions only Patient Tobacco Use Status: Former Tobacco user Tobacco use type: Cigarette Years Smoked: 40 yrs e-Cigarette/Vaping Use: Never Used Advance Directives: No Advance Directives Information Provided: Yes Do you have a plan to hurt others: No Plan Nutrition Risks: No Nutritional Risk service: No Current occupational status: retired 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 Current occupational exposures/hazards: No Cognitive needs: No Hearing needs: No Vision needs: Yes Physical Exam ED Vital Signs: Vital Signs - 24 hr 07/30/24 07:46 07/30/24 08:00 07/30/24 10:00 Temperature 98.8 F 99.0 F Pulse Rate 130 H 96 Respiratory Rate 22 H 18 Blood Pressure 162/87 H 154/77 H Pulse Oximetry 96 95 88 L Oxygen Delivery Method Room Air Room Air Room Air Oxygen Flow Rate 07/30/24 10:13 Temperature Pulse Rate 127 H Respiratory Rate 18 Blood Pressure 124/68 Pulse Oximetry 97 Oxygen Delivery Method Nasal Cannula Oxygen Flow Rate 1 BMI result Body Mass Index 55.7 Const General: cooperative, no acute distress, alert and awake Nutritional Appearance: well nourished Orientation/consciousness: patient oriented x3 Limitations: no limitations HENMT Head: Yes normal to inspection and Yes atraumatic Ears: hearing grossly normal bilaterally and external ears normal General nose exam: Normal external nose present, no nasal discharge noted and no epistaxis Face and sinus: Yes normal facial exam, No abrasion and No laceration Mouth: Normal oral and palatal mucosa present, no drooling and no muffled voice Eyes General: appearance normal, both eyes and all related structures Periorbital: periorbital findings normal Eyelids: Yes eyelids normal Conjunctivae: conjunctivae normal Pupils: Equal, round and reactive pupils present EOM: EOMs intact bilaterally Neck Neck: Yes normal visual inspection, Yes full ROM and Yes no lymphadenopathy Chest Chest palpation & inspection: normal inspection of the chest Resp Effort & Inspection: able to speak in complete sentences, Actively coughing Quality: dry and labored Auscultation: wheezes scattered wheezes GI Inspection: Yes normal to inspection Neuro General: patient oriented x3 and moves all extremities Cranial nerves: Yes Equal, round and reactive pupils present Cognition (Neuro): normal cognition Extrem General: Yes normal to inspection, Yes full ROM and Yes capillary refill normal Psych Appearance: grossly normal Mental Status: mental status grossly normal Affect: normal affect Attitude: cooperative Thought process: Normal thought process present Thought content: Normal thought content present Insight: Good insight present (Psych) Medications Administered Discontinued Medications Generic Name Dose Route Start Last Admin Trade Name Freq PRN Reason Stop Dose Admin Levalbuterol HCl 2.5 mg/ 0 mg 07/30/24 10:44 07/30/24 10:48 Ipratropium [place] 0.5 mg INHALE 07/30/24 10:45 1 dose ONCE ONE Administration Methylprednisolone Sodium Succinate 60 mg 07/30/24 10:16 07/30/24 10:38 Methylprednisolone Sod Succ 125 Mg/2 Ml Vial IVPUSH 07/30/24 10:17 60 mg ONCE ONE Administration Medical Decision Making Medical Decision Making MDM Narrative: Patient is an 79 year old assigned female at with a history of HTN, atrial fib on anti coags, asthma, need for a cardiac valve replacement (cards through [place]), and CKD presenting to the emergency department today with cough and shortness of breath over the last 2 days. Patient's physical exam was as noted in the physical exam portion of this note. Patient dropped to between 83 and 86% on room air during ambulation - patient started on oxygen via NC. Patient's blood work was unremarkable. Patient's EKG was unremarkable. Patient's chest x- ray showed no acute process. Patient was positive for COVID-19. I spoke to the hospitalist team who agreed to admission. I explained my physical exam findings as well as all test results to the patient. I answered all questions asked by the patient. Patient and the patient's son in law verbalized agreement and understanding with this treatment plan and admission. Differential Diagnosis Differential Diagnoses: The differential diagnosis associated with the presentation includes COVID-19 Hypoxia Admission/Observation Consideration of admission/observation: Escalation of care including admission/observation considered Patient admitted as noted in the MDM Rational portion of this note. Consult Healthcare Provider Management of the patient was discussed with: Hospitalist (Agreed to admission as noted in the MDM Rational portion of this note.) Lab Data [facility] Lab Attestation statement: I reviewed the patient's lab results. My interpretation of these results are in the MDM Rationale portion of this note. 07/30/24 08:08 07/30/24 08:08 Labs: Lab Results 07/30/24 Range/Units 08:08 WBC 10.5 (4.8-10.8) X10*3/uL RBC 4.27 (4.20-5.50) X10*6/uL Hgb 12.0 (12.0-16.0) g/dl Hct 37.3 (37.0-47.0) % MCV 87.4 (80.0-98.0) fL MCH 28.1 (27.0-33.0) pg MCHC 32.2 (31.0-35.0) g/dl RDW 15.4 (11.0-16.0) % Plt Count 198 (160-400) X10*3/uL MPV 10.1 (9.4-12.3) fL Immature Gran % (Auto) 0.7 H (0.0-0.4) % Neut % (Auto) 81.9 H (45-73) % Lymph % (Auto) 6.1 L (20-40) % [place] % (Auto) 11.1 H (2-11) % Eos % (Auto) 0.0 (0-4) % Baso % (Auto) 0.2 (0-2) % Lymph # (Auto) 0.6 L (1.2-4.9) X10*3/uL [place] # (Auto) 1.2 (0.1-1.2) X10*3/uL Eos # (Auto) 0.0 (0.0-0.4) X10*3/uL Baso # (Auto) 0.0 (0.0-0.2) X10*3/uL Abs Immat Gran (auto) 0.07 H (0.00-0.03) X10*3/uL Absolute Neuts (auto) 8.6 H (2.0-8.3) x10*3/uL Absolute Nucleated RBC 0.000 (0.0-0.012) X10*3/uL Nucleated RBC % (auto) 0.0 (0.0-0.2) /100WBC Sodium 142 (135-145) mmol/L Potassium 4.1 (3.3-5.1) mmol/L Chloride 109 H (96-108) mmol/L Carbon Dioxide 24 (22-29) mmol/L Anion Gap 13 (12-20) BUN 15 (9-16) mg/dL Creatinine 1.08 (0.5-1.4) mg/dL Estim Creat Clear Calc 51.8 Estimated GFR 49 Random Glucose 127 H (60-115) mg/dL Calcium 9.5 (8.4-10.2) mg/dL Total Bilirubin 0.5 (0.0-1.0) mg/dL Direct Bilirubin 0.2 (0.0-0.5) mg/dL AST 27 (5-31) U/L ALT 16 (0-31) U/L Alkaline Phosphatase 55 (39-117) U/L Troponin I High Sens 42.0 H (<3.5-17.0) ng/L B-Natriuretic Peptide 745 H (<100) pg/mL Total Protein 6.7 (6.5-8.0) g/dL Albumin 4.0 (3.5-5.0) g/dL Lipase 46 (8-78) U/L Influenza Type A (PCR) NEGATIVE (Negative) Influenza Type B (PCR) NEGATIVE (Negative) RSV RNA Qual (PCR) NEGATIVE (Negative) SARS-CoV-2 RNA (RT-PCR) POSITIVE A (Negative) Independent Interpretation I performed an independent interpretation of an: EKG and Plain X-Ray Interpretation: My interpretation is in agreement with the radiologist's impression of this imaging study. L CLINICAL HISTORY: sob 2 view chest x-ray Comparison: None Findings: The lungs are clear. Normal size heart. No acute fracture. IMPRESSION: 1. No acute findings. This document has been electronically signed by: Milo Ferrer MD on 07/30/2024 08:28:43 Dictated By: Milo Ferrer MD Signed By: Electronically signed by Milo Ferrer MD 07/30/24 0829 Vent. Rate: 102 BPM Atrial Rate: 102 BPM P-R Int: 280 ms QRS Dur: 080 ms QT Int: 322 ms P-R-T Axes: 000 061 027 degrees QTc Int: 419 ms Sinus tachycardia with 1st degree A-V block with occasional Premature ventricular complexes Low voltage QRS Nonspecific ST abnormality No previous ECGs available DD/ 1 Radiology Impression Discussion of test interpretation with radiology: I have reviewed the radiologist's reading. Independent Historian Clinical information obtained from an independent historian. History obtained from or confirmed by: Other (patient's son in law provided additional history and confirmed the history provided by the patient.) Critical Care Time Critical Care Time Critical Care Time: Yes Total Critical Care Time: 38 Attestation: I spent 38 minutes of Critical Care Time with this patient. This does not include time spent on separately reported billable procedures. Discharge Plan Discharge Clinical Impression: Hypoxia, COVID-19, Elevated brain natriuretic peptide (BNP) level Patient Disposition: Admitted As Inpatient
--- NOTE | 2024-07-30 09:57 | MHC.EDTECH ---
pt ambulated to the bathroom using walker, O2 fluctuates between 83-92%
--- NOTE | 2024-07-30 10:22 | PM.IMHP ---
History of Present Illness Date of Service: 07/30/24 Chief Complaint: shortness of breath This is an 79-year-old female past medical history significant for lymphedema atrial fibrillation on anticoagulation, CKD, mild intermittent asthma, osteoarthritis, dyslipidemia, hypertension who presented to the emergency department for complaints shortness of breath, productive cough w/ clear/ thick sputum, fatigue, malaise, myalgias over the past two days worsening. Denies sick contacts. Patient vaccinated X4 against covid. No fevers, chills, headache, vision changes, dizziness, weakness, abd pain, n/v/d. While in the emergency department she had labs, imaging and viral testing done. Her CBC showed no acute abnormalities . Chemistry with no acute electrolyte abnormalities needing intervention. BUN 15, creatinine 1.08. She was noted to have an elevated troponin of 42.0 with a nonischemic EKG. Her BNP elevated at 745. Chest x-ray no acute findings. An ambulatory trial was done on patient and she was noted to desaturate and have intermittent hypoxia with ambulation. She was saturating 83% on room air and was placed on 1 L of nasal cannula. She is now saturating 97%. She received 60 mg IV of Solu-Medrol while in the emergency department and breathing treatments were ordered. Review of Systems Review of Systems: Yes all other systems are reviewed and are negative [facility] Medical History (Updated 07/30/24 @ 11:00 by JEN Griffith) Lymphedema Lymphedema of both lower extremities Stress incontinence Chronic kidney disease Diverticulitis Atrial fibrillation Mild intermittent asthma Osteoarthritis Dyslipidemia Essential hypertension Functional capacity: independent ambulation Family History Son Esophageal cancer Surgical History Hx of colonoscopy History of tubal ligation Social History Housing: Apartment Alcohol intake: current Alcohol intake frequency: holidays/special occasions only Patient Tobacco Use Status: Former Tobacco user Tobacco use type: Cigarette Years Smoked: 40 yrs e-Cigarette/Vaping Use: Never Used Advance Directives: No Advance Directives Information Provided: Yes Do you have a plan to hurt others: No Plan service: No Current occupational status: retired 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 Current occupational exposures/hazards: No Cognitive needs: No Hearing needs: No Vision needs: Yes Meds Allergies Allergy/AdvReac Type Severity Reaction Status Date / Time No Known Allergies Allergy Verified 07/30/24 07:49 Home Medications ?Medication ?Instructions ?Recorded ?Confirmed ?Last Taken ?Type cholecalciferol (vitamin D3) 25 25 mcg PO DAILY 07/30/21 12/25/22 Unknown History mcg (1,000 unit) capsule metoprolol succinate 100 mg 100 mg PO DAILY 07/30/21 12/25/22 Unknown History tablet,extended release 24 hr omega 8-icx-nwn-fish oil 1,000 mg 1 cap PO DAILY 06/12/22 12/25/22 Unknown History (120 mg-180 mg) capsule (Fish Oil) apixaban 5 mg tablet (Eliquis) 5 mg PO BID 10/29/22 12/25/22 Unknown History aspirin 81 mg tablet,delayed 81 mg PO DAILY 12/25/22 12/25/22 Unknown History release isosorbide mononitrate 30 mg 30 mg PO QAM 12/25/22 12/25/22 Unknown History tablet,extended release 24 hr idmetkhu-wciayid-xnyq-lutein tablet tab PO 12/25/22 12/25/22 Unknown History rosuvastatin 20 mg tablet 20 mg PO BEDTIME 12/25/22 12/25/22 Unknown History Physical Exam Vital Signs and Narrative: Vital Signs: Last Vital Signs Temp 99.0 F 07/30/24 08:00 Pulse 127 H 07/30/24 10:13 Resp 18 07/30/24 10:13 BP 124/68 07/30/24 10:13 Pulse Ox 97 07/30/24 10:13 O2 Del Method Nasal Cannula 07/30/24 10:13 O2 Flow Rate 1 07/30/24 10:13 BMI result Body Mass Index 55.7 Appearance: Alert.? Oriented X3.? No acute distress.? Intermittent dry cough during my examination Head: Normocephalic, atraumatic, no step-offs or deformities Eyes: Pupils equal, round and reactive to light.? ENT: Pharynx normal.? Neck: Normal inspection.? Neck supple.? CVS: Rapid rate normal rhythm likely sinus tachycardia around 110 beats per minute? Pulses normal.? Respiratory: No respiratory distress.? Breath sounds with expiratory wheezing bilaterally..? Abdomen: Soft and nontender.? Skin: Skin warm and dry.? Normal skin color.? Normal skin turgor.? Extremities: No lower extremity edema.? No calf ttp. 5/5 strength to bilateral upper and lower extremities Neuro: Oriented X 3.? No motor deficit.? No sensory deficit. CN 2-12 intact Results Labs 07/30/24 08:08 07/30/24 08:08 Labs: Laboratory Results - last 24 hr 07/30/24 08:08 MCV 87.4 MCH 28.1 MCHC 32.2 RDW 15.4 Plt Count 198 MPV 10.1 Immature Gran % (Auto) 0.7 H Neut % (Auto) 81.9 H Lymph % (Auto) 6.1 L [place] % (Auto) 11.1 H Eos % (Auto) 0.0 Baso % (Auto) 0.2 Lymph # (Auto) 0.6 L [place] # (Auto) 1.2 Eos # (Auto) 0.0 Baso # (Auto) 0.0 Abs Immat Gran (auto) 0.07 H Absolute Neuts (auto) 8.6 H Absolute Nucleated RBC 0.000 Nucleated RBC % (auto) 0.0 Anion Gap 13 Estim Creat Clear Calc 51.8 Estimated GFR 49 Random Glucose 127 H Calcium 9.5 Total Bilirubin 0.5 Direct Bilirubin 0.2 AST 27 ALT 16 Alkaline Phosphatase 55 Troponin I High Sens 42.0 H B-Natriuretic Peptide 745 H Total Protein 6.7 Albumin 4.0 Lipase 46 Influenza Type A (PCR) NEGATIVE Influenza Type B (PCR) NEGATIVE RSV RNA Qual (PCR) NEGATIVE SARS-CoV-2 RNA (RT-PCR) POSITIVE A ECG Attestation: I personally reviewed and interpreted this ECG as follows: ECG interpretation date: 07/30/24 ECG interpretation time: 10:28 Prior ECG tracings: not available for review Interpretation: Ventricular rate of 102, [place] normal, QRS normal, QT/QTC normal. EKG with sinus tachycardia and first-degree AV block with intermittent PVCs. Low voltage QRS no ST elevations or inversions concerning for acute ischemia. Imaging Radiologist's Impressions: 07/30/2024 CXR Findings: The lungs are clear. Normal size heart. No acute fracture. IMPRESSION: 1. No acute findings. Assessment and Plan (1) COVID-19: Status: Acute (2) Hypoxia: Status: Acute (3) CKD (chronic kidney disease): Status: Acute (4) Elevated troponin: Status: Acute (5) Wheezing: Status: Acute (6) History of atrial fibrillation: Status: Acute (7) Dyslipidemia: Status: Acute (8) Hypertension: Status: Acute (9) Elevated brain natriuretic peptide (BNP) level: Status: Acute (10) Lymphedema of both lower extremities: Status: Acute (11) Obesity: Status: Acute (12) Obesity: Status: Acute Plan 1- COVID-19 2- Hypoxia 3- Wheezing 07/30- Hypoxia likely in the setting of COVID-19 infection. No signs of infection no indication for antibiotics. Duonebs 3 ml ordered TID PRN for wheezing as well as decadron 6 mg IVP daily. 4- CKD 07/30- No signs of acute injury to the kidneys. Kidney function seems to be around baseline. No interventions needed at this time. 5-Elevated troponin 07/30-likely in the setting of demand ischemia secondary to COVID-19/hypoxia. Unlikely from ACS. Will obtain 2nd troponin to ensure no increase in delta. Patient without chest pain or shortness of breath. 6- History of atrial fibrillation 07/30- patient on apixaban 5 mg po bid (continue). Rate is well controlled with metoprolol succinate 100 mg po daily (continue) 7- Dyslipidemia 07/30- patient on rostuvastatin 20 mg po at bedtime ( continue) also on aspirin 81 mg po daily (continue) 8- Hypertension 07/30- BP well controlled at this time patient on home metoprolol succinate 100 mg po daily ( continue) 9- Elevated BNP 10- Lymphedema 07/30- chronic lymphedema no signs of acute CHF or fluid overload on exam. BNP elevated today at 745 likely in the setting of acute viral illness/ COVID-19. Lasix 20 mg po daily ordered. 11- Obesity 07/30- should not be a barrier to patients hospital course DVTP- patient already on home apixaban 5 mg po BID Code status: Full code Quality Stroke Does the patient have a stroke diagnosis?: No VTE Prior VTE?: No VTE Risk Level:: Medical - moderate - high VTE Device Contraindication: Treatment Not Indicated VTE Drug Contraindication: N/A - Med Ordered
[2024-07-30] MEDS: methylPREDNISolone Sod Succ 125 MG/2 ML VIAL 60 MG IVPUSH (10:38)
[2024-07-30] MEDS: levalbuterol HCL 2.5 MG, Ipratropium Bromide 0.5 MG INHALE (10:48)
--- NOTE | 2024-07-30 11:19 | PHA.MEDREC ---
Addendum entered by Marely Diallo RPh 07/30/24 11:45: reviewed by [facility]. Original Note: Pharmacy Consult ? Medication Reconciliation Pharmacy has completed the medication reconciliation. Spoke to pt and pt's family to confirm meds (Family had a med card). Per patient, they only take furosemide PRN (at most twice a week) because it makes them use the bathroom a lot and have to plan their life around the medication.
[2024-07-30 12:12] LABS: Troponin-I High Sensitivity 68.8 ng/L (<3.5-17.0)
[2024-07-30] MEDS: Metoprolol Succinate ER 100 MG TAB.ER.24H PO (14:03)
[2024-07-30] MEDS: 0.9 % Sodium Chloride Flush 3 ML SYRINGE IVFLUSH ×2 (17:38→19:40)
[2024-07-30] MEDS: Apixaban 5 MG TABLET PO (19:40)
[2024-07-30] MEDS: Atorvastatin Calcium 80 MG TABLET PO (19:40)
[2024-07-31 04:00] VITALS: BP 136/61; PULSE 67; RESP 18; TEMP 36; O2SAT 93
[2024-07-31 07:09] LABS: MANUAL DIFF FLAG NO
[2024-07-31 07:12] LABS: Hematocrit 33.8 % (37.0-47.0); Hemoglobin 10.9 g/dl (12.0-16.0); Imm Gran Abs Auto 0.05 X10*3/uL (0.00-0.03); Imm Gran Pct Auto 0.7 % (0.0-0.4); Lymphocytes Absolute Auto 0.7 X10*3/uL (1.2-4.9); Lymphocytes Percent Auto 10.7 % (20-40); Mean Corpuscular HGB Conc 32.2 g/dl (31.0-35.0); Mean Corpuscular Hemoglobin 28.1 pg (27.0-33.0); Mean Corpuscular Volume 87.1 fL (80.0-98.0); Mean Platelet Volume 10.6 fL (9.4-12.3); Monocytes Percent Auto 13.8 % (2-11); Neutrophils Absolute Auto 5.2 x10*3/uL (2.0-8.3); Neutrophils Percent Auto 74.8 % (45-73); Platelet Count 185 X10*3/uL (160-400); Red Blood Count 3.88 X10*6/uL (4.20-5.50); Red Cell Distribution Width 15.7 % (11.0-16.0); White Blood Count 6.9 X10*3/uL (4.8-10.8)
[2024-07-31 07:21] VITALS: BP 127/59; PULSE 67; RESP 18; TEMP 36.6; O2SAT 93
[2024-07-31 07:35] LABS: Alanine Aminotransferase 20 U/L (0-31); Albumin Level 3.5 g/dL (3.5-5.0); Alkaline Phosphatase 44 U/L (39-117); Anion Gap 12 (12-20); Aspartate Amino Transferase 40 U/L (5-31); Bilirubin Total 0.3 mg/dL (0.0-1.0); Blood Urea Nitrogen 21 mg/dL (9-16); Calcium 9.1 mg/dL (8.4-10.2); Carbon Dioxide 23 mmol/L (22-29); Chloride 110 mmol/L (96-108); Creatinine Clr Calc Pharmacy 56.5; Estimated Glomerular Filt Rate 54; Glucose Random 113 mg/dL (60-115); Potassium 4.4 mmol/L (3.3-5.1); Sodium 141 mmol/L (135-145); Total Protein 5.9 g/dL (6.5-8.0)
[2024-07-31] MEDS: Isosorbide Mononitrate 30 MG TAB.ER.24H PO (08:36)
[2024-07-31] MEDS: Cholecalciferol (Vitamin D3) 25 MCG TABLET PO (08:36)
[2024-07-31] MEDS: Metoprolol Succinate ER 100 MG TAB.ER.24H PO (08:36)
[2024-07-31] MEDS: Aspirin Enteric Coated 81 MG TABLET.DR PO (08:36)
[2024-07-31] MEDS: Apixaban 5 MG TABLET PO ×2 (08:37→20:22)
[2024-07-31] MEDS: dexAMETHasone sod phosphate 4 MG/ML VIAL 6 MG IVPUSH (08:39)
[2024-07-31] MEDS: 0.9 % Sodium Chloride Flush 3 ML SYRINGE IVFLUSH ×3 (08:39→20:23)
[2024-07-31] MEDS: Fluticasone/Vilanterol 200/25 BLST.W.DEV 1 PUFF INHALE (08:41)
[2024-07-31 08:46] VITALS: PULSE 86; RESP 18
[2024-07-31 11:13] VITALS: BP 128/58; PULSE 76; RESP 18; TEMP 36.5; O2SAT 92
--- NOTE | 2024-07-31 13:29 | P.PNIM_ITS ---
Subjective Subjective Date of Service: 07/31/24 Interval History: Notes improvement since admission. No O2 requirement Review of Systems Denies chest pain Denies shortness of breath Denies nausea vomiting diarrhea Denies fever chills Physical Exam 2 Vital Signs: Vital Signs: Last Vital Signs Temp 97.7 F 07/31/24 11:13 Pulse 76 07/31/24 11:13 Resp 18 07/31/24 11:13 BP 128/58 L 07/31/24 11:13 Pulse Ox 92 07/31/24 11:13 O2 Del Method Room Air 07/31/24 11:13 O2 Flow Rate 1 07/30/24 10:13 BMI result Body Mass Index 55.7 Const: Other: Awake alert no acute distress. Speaking in full sentences Resp: Other: Diminished with scattered expiratory wheezes throughout Cardio: Other: No S4; positive S1-S2; no S3 murmurs rubs or gallops GI: Other: Soft nontender nondistended normoactive bowel sounds Extrem: Other: No edema bilaterally Objective Data Active Medications Acetaminophen (Acetaminophen 325 Mg Tablet) 650 mg PO Q6H PRN PRN Reason: Pain, Mild 1-3,fever,headache Albuterol Sulfate (Albuterol Sulfate 90 Mcg 8 Gm Inhaler) 1 puff INHALE Q6H PRN PRN Reason: shortness of breath or wheezing Albuterol/Ipratropium (Albuterol/Iprat 2.5/0.5mg 3 Ml Ampul.Neb) 3 ml INHALE TID PRN PRN Reason: shortness of breath Apixaban (Apixaban 5 Mg Tablet) 5 mg PO BID REPLACED BY [facility] Last Admin: 07/31/24 08:37 Dose: 5 mg Documented By: JEN Aspirin (Aspirin Enteric Coated 81 Mg Tablet.) 81 mg PO DAILY REPLACED BY [facility] Last Admin: 07/31/24 08:36 Dose: 81 mg Documented By: JEN Atorvastatin Calcium (Atorvastatin Calcium 80 Mg Tablet) 80 mg PO BEDTIME REPLACED BY [facility] Last Admin: 07/30/24 19:40 Dose: 80 mg Documented By: CHRISTOPH Calcium Carbonate (Calcium Carbonate 750 Mg Tab.Chew) 750 mg PO Q4H PRN PRN Reason: Heartburn Dexamethasone Sodium Phosphate (Dexamethasone Sod Phosphate 4 Mg/Ml Vial) 6 mg IVPUSH DAILY REPLACED BY [facility] Last Admin: 07/31/24 08:39 Dose: 6 mg Documented By: JEN Fluticasone/Vilanterol (Fluticasone/Vilanterol 200/25 Blst.W.Dev) 1 puff INHALE RDAILY REPLACED BY [facility] Last Admin: 07/31/24 08:41 Dose: 1 puff Documented By: CHENCHO Furosemide (Furosemide 20 Mg Tablet) 20 mg PO DAILY PRN; Protocol PRN Reason: fluid overload Isosorbide Mononitrate (Isosorbide Mononitrate 30 Mg Tab.Er.24h) 30 mg PO DAILY REPLACED BY [facility]; Protocol Last Admin: 07/31/24 08:36 Dose: 30 mg Documented By: JNE Magnesium Hydroxide (Milk Of Magnesia 30 Ml Oral.Susp) 30 ml PO DAILY PRN PRN Reason: Constipation Melatonin (Melatonin 3 Mg Tablet) 6 mg PO BEDTIME PRN PRN Reason: Insomnia Metoprolol Succinate (Metoprolol Succinate Er 100 Mg Tab.Er.24h) 100 mg PO DAILY REPLACED BY [facility]; Protocol Last Admin: 07/31/24 08:36 Dose: 100 mg Documented By: JEN Multivitamins/Vitamin C (Multivitamin Tablet) 1 tab PO DAILY REPLACED BY [facility] Ondansetron HCl (Ondansetron Hcl 4 Mg/2 Ml Vial) 4 mg IVPUSH Q8H PRN PRN Reason: Nausea and Vomiting Sodium Chloride (0.9 % Sodium Chloride Flush 3 Ml Syringe) 3 ml IVFLUSH QSHIFT REPLACED BY [facility] Last Admin: 07/31/24 08:39 Dose: 3 ml Documented By: JEN Vitamin D (Cholecalciferol (Vitamin D3) 25 Mcg Tablet) 25 mcg PO DAILY REPLACED BY [facility] Last Admin: 07/31/24 08:36 Dose: 25 mcg Documented By: JEN Labs 07/31/24 06:52 07/31/24 06:52 Labs: Laboratory Results - last 24 hr 07/31/24 06:52 MCV 87.1 MCH 28.1 MCHC 32.2 RDW 15.7 Plt Count 185 MPV 10.6 Immature Gran % (Auto) 0.7 H Neut % (Auto) 74.8 H Lymph % (Auto) 10.7 L [place] % (Auto) 13.8 H Eos % (Auto) 0.0 Baso % (Auto) 0.0 Lymph # (Auto) 0.7 L [place] # (Auto) 1.0 Eos # (Auto) 0.0 Baso # (Auto) 0.0 Abs Immat Gran (auto) 0.05 H Absolute Neuts (auto) 5.2 Absolute Nucleated RBC 0.000 Nucleated RBC % (auto) 0.0 Anion Gap 12 Estim Creat Clear Calc 56.5 Estimated GFR 54 Random Glucose 113 Calcium 9.1 Total Bilirubin 0.3 AST 40 H ALT 20 Alkaline Phosphatase 44 Total Protein 5.9 L Albumin 3.5 Assessment and Plan (1) COVID-19: Status: Acute (2) Mild intermittent asthma: Status: Acute Plan 79-year-old female past medical history significant for lymphedema atrial fibrillation on anticoagulation, CKD, mild intermittent asthma, osteoarthritis, dyslipidemia, hypertension who presented to the emergency department for complaints shortness of breath, productive cough w/ clear/ thick sputum, fatigue, malaise, myalgias over the past two days worsening. Denies sick contacts. Test positive for COVID-19 in ER. 1.Covid/COPD exacerbation -switch to methylprednisolone Q 8 hours -Re eval in a.m.; likely switch to p.o. 2.CKD -stable and well compensated -follow renals/divalents 3.Paroxysmal AFib -acceptable rate control -continue Eliquis -adjust as indicated 4. HTN -acceptable control on current therapy -adjust as indicated Eliquis Full Code Quality Stroke Does the patient have a stroke diagnosis?: No VTE Prior VTE?: No VTE Risk Level:: Medical - moderate - high VTE Device Contraindication: Treatment Not Indicated VTE Drug Contraindication: N/A - Med Ordered
--- NOTE | 2024-07-31 13:45 | MHC.CM.PN ---
IMM Pt lives alone, her dtr lives next door. She is independent, no home health services, has a cane for DME. HCP is her dtr Latricia, copy requested. PCP confirmed: Dr. Ba. Family to transport home at [place]. DCP: home, self care. CM to follow for DC needs.
[2024-07-31] MEDS: Multivitamin TABLET 1 TAB PO (15:29)
[2024-07-31 16:00] VITALS: BP 139/61; PULSE 71; RESP 18; TEMP 36.5; O2SAT 93
[2024-07-31 20:00] VITALS: BP 134/67; PULSE 70; RESP 20; TEMP 36.2; O2SAT 94
[2024-07-31] MEDS: Atorvastatin Calcium 80 MG TABLET PO (20:22)
[2024-08-01] VITALS (7 sets, daily range): BP systolic 123–150; BP diastolic 52–64; PULSE 69–91; RESP 14–20; TEMP 36.2–37; O2SAT 93–95
--- NOTE | 2024-08-01 04:44 | PC.NURSE ---
Patient ambulated halls this evening from her room 475 to south stair 2 exit sign and back to room with walker. Patient was sob with oxygen sats of 89% on room air but tolerated well.
[2024-08-01] MEDS: dexAMETHasone sod phosphate 4 MG/ML VIAL 6 MG IVPUSH (08:11)
[2024-08-01] MEDS: Isosorbide Mononitrate 30 MG TAB.ER.24H PO (08:12)
[2024-08-01] MEDS: 0.9 % Sodium Chloride Flush 3 ML SYRINGE IVFLUSH ×2 (08:12→20:01)
[2024-08-01] MEDS: Metoprolol Succinate ER 100 MG TAB.ER.24H PO (08:12)
[2024-08-01] MEDS: Apixaban 5 MG TABLET PO ×2 (08:12→20:01)
[2024-08-01] MEDS: Aspirin Enteric Coated 81 MG TABLET.DR PO (08:12)
[2024-08-01] MEDS: Cholecalciferol (Vitamin D3) 25 MCG TABLET PO (08:12)
[2024-08-01] MEDS: Multivitamin TABLET 1 TAB PO (08:12)
[2024-08-01] MEDS: Fluticasone/Vilanterol 200/25 BLST.W.DEV 1 PUFF INHALE (08:25)
--- NOTE | 2024-08-01 11:53 | MHC.CM.PN ---
PER HOSPITALIST ANTIC PT WILL BE MEDICALLY CLEARED FOR DC HOME NO SERVICES AND FAMILY TO TRANSPORT
--- NOTE | 2024-08-01 14:29 | P.PNIM_ITS ---
Subjective Subjective Date of Service: 08/01/24 Interval History: Minimal improvement overnight. Sats dropping into the 80s with ambulation Review of Systems Denies chest pain Admits shortness of breath Denies nausea vomiting diarrhea Denies fever chills Physical Exam 2 Vital Signs: Vital Signs: Last Vital Signs Temp 97.5 F 08/01/24 12:00 Pulse 91 08/01/24 12:00 Resp 16 08/01/24 12:00 BP 123/64 08/01/24 12:00 Pulse Ox 95 08/01/24 12:00 O2 Del Method Room Air 08/01/24 12:00 O2 Flow Rate 1 07/30/24 10:13 BMI result Body Mass Index 55.7 Const: Other: Awake alert no acute distress. Speaking in full sentences Resp: Other: Diminished with scattered expiratory wheezes throughout Cardio: Other: No S4; positive S1-S2; no S3 murmurs rubs or gallops GI: Other: Soft nontender nondistended normoactive bowel sounds Extrem: Other: No edema bilaterally Objective Data Active Medications Acetaminophen (Acetaminophen 325 Mg Tablet) 650 mg PO Q6H PRN PRN Reason: Pain, Mild 1-3,fever,headache Albuterol Sulfate (Albuterol Sulfate 90 Mcg 8 Gm Inhaler) 1 puff INHALE Q6H PRN PRN Reason: shortness of breath or wheezing Albuterol/Ipratropium (Albuterol/Iprat 2.5/0.5mg 3 Ml Ampul.Neb) 3 ml INHALE TID PRN PRN Reason: shortness of breath Apixaban (Apixaban 5 Mg Tablet) 5 mg PO BID [facility] Last Admin: 08/01/24 08:12 Dose: 5 mg Documented By: MARIO ALBERTO Aspirin (Aspirin Enteric Coated 81 Mg Tablet.) 81 mg PO DAILY [facility] Last Admin: 08/01/24 08:12 Dose: 81 mg Documented By: MARIO ALBERTO Atorvastatin Calcium (Atorvastatin Calcium 80 Mg Tablet) 80 mg PO BEDTIME [facility] Last Admin: 07/31/24 20:22 Dose: 80 mg Documented By: SHANTI Calcium Carbonate (Calcium Carbonate 750 Mg Tab.Chew) 750 mg PO Q4H PRN PRN Reason: Heartburn Dexamethasone Sodium Phosphate (Dexamethasone Sod Phosphate 4 Mg/Ml Vial) 6 mg IVPUSH DAILY [facility] Last Admin: 08/01/24 08:11 Dose: 6 mg Documented By: MARIO ALBERTO Fluticasone/Vilanterol (Fluticasone/Vilanterol 200/25 Blst.W.Dev) 1 puff INHALE RDAILY [facility] Last Admin: 08/01/24 08:25 Dose: 1 puff Documented By: AYO Furosemide (Furosemide 20 Mg Tablet) 20 mg PO DAILY PRN; Protocol PRN Reason: fluid overload Isosorbide Mononitrate (Isosorbide Mononitrate 30 Mg Tab.Er.24h) 30 mg PO DAILY [facility]; Protocol Last Admin: 08/01/24 08:12 Dose: 30 mg Documented By: MARIO ALBERTO Magnesium Hydroxide (Milk Of Magnesia 30 Ml Oral.Susp) 30 ml PO DAILY PRN PRN Reason: Constipation Melatonin (Melatonin 3 Mg Tablet) 6 mg PO BEDTIME PRN PRN Reason: Insomnia Metoprolol Succinate (Metoprolol Succinate Er 100 Mg Tab.Er.24h) 100 mg PO DAILY [facility]; Protocol Last Admin: 08/01/24 08:12 Dose: 100 mg Documented By: MARIO ALBERTO Multivitamins/Vitamin C (Multivitamin Tablet) 1 tab PO DAILY [facility] Last Admin: 08/01/24 08:12 Dose: 1 tab Documented By: MARIO ALBERTO Ondansetron HCl (Ondansetron Hcl 4 Mg/2 Ml Vial) 4 mg IVPUSH Q8H PRN PRN Reason: Nausea and Vomiting Sodium Chloride (0.9 % Sodium Chloride Flush 3 Ml Syringe) 3 ml IVFLUSH QSHIFT [facility] Last Admin: 08/01/24 08:12 Dose: 3 ml Documented By: MARIO ALBERTO Vitamin D (Cholecalciferol (Vitamin D3) 25 Mcg Tablet) 25 mcg PO DAILY [facility] Last Admin: 08/01/24 08:12 Dose: 25 mcg Documented By: MARIO ALBERTO Labs 07/31/24 06:52 07/31/24 06:52 Assessment and Plan (1) COVID-19: Status: Acute Plan 79-year-old female past medical history significant for lymphedema atrial fibrillation on anticoagulation, CKD, mild intermittent asthma, osteoarthritis, dyslipidemia, hypertension who presented to the emergency department for complaints shortness of breath, productive cough w/ clear/ thick sputum, fatigue, malaise, myalgias over the past two days worsening. Denies sick contacts. Test positive for COVID-19 in ER. 1.Covid/COPD exacerbation -switch to methylprednisolone 60mg Q 8 hours -add azithromycin 500 daily 2.CKD -stable and well compensated -follow renals/divalents 3.Paroxysmal AFib -acceptable rate control -continue Eliquis -adjust as indicated 4. HTN -acceptable control on current therapy -adjust as indicated Eliquis Full Code Quality Stroke Does the patient have a stroke diagnosis?: No VTE Prior VTE?: No VTE Risk Level:: Medical - moderate - high VTE Device Contraindication: Treatment Not Indicated VTE Drug Contraindication: N/A - Med Ordered
[2024-08-01] MEDS: Atorvastatin Calcium 80 MG TABLET PO (20:01)
[2024-08-02] VITALS: BP 131/60; PULSE 68; RESP 16; TEMP 37.1; O2SAT 97
[2024-08-02 04:00] VITALS: BP 143/63; PULSE 61; RESP 20; TEMP 36.8; O2SAT 95
--- NOTE | 2024-08-02 07:36 | P.CDIM_ITS ---
PROVIDER RESPONSE TEXT: To clarify, the appropriate diagnosis supported by the clinical indicators: Obesity Due to excess calories QUERY TEXT: PHYSICIAN'S DOCUMENTATION REQUEST Date of Query: 08/01/2024 09:23 AM EST Patient Name: Preeti Antoine Admit Date: 07/30/2024 Dear Omari Coburn DO, A review of the medical record indicates additional documentation may be needed. Please review below and update the documentation accordingly. Clinical Indicators: Height: 5ft Weight: 129.274 BMI: 55.7kg If possible, please provide an associated diagnosis related to the abnormal BMI, such as: Obesity Due to excess calories Obesity Drug induced Obesity Due to other cause Specify the other cause Severe or Morbid Obesity With alveolar hypoventilation Severe or Morbid Obesity Without alveolar hypoventilation Other (explain) Clinically unable to determine (explain) Thank you, Myriam Gatica, CCS, CDIS Use of terms such as suspected, likely, concern for, or probable (associated with a specific diagnosi s that is being evaluated, monitored, or treated as if it exists) are acceptable and can be coded in the inpatient se tting, when documented at the time of discharge. Please use your independent medical judgment in providing your response. THIS QUERY IS PART OF THE PERMANENT MEDICAL RECORD
[2024-08-02 07:37] VITALS: BP 150/66; PULSE 66; RESP 18; TEMP 36.4; O2SAT 95
--- NOTE | 2024-08-02 07:40 | P.CDIM_ITS ---
PROVIDER RESPONSE TEXT: To clarify, the appropriate diagnosis supported by the clinical indicators: CKD, please provide stage: 3a QUERY TEXT: PHYSICIAN'S DOCUMENTATION REQUEST Date of Query: 08/01/2024 11:11 AM EST Patient Name: Preeti Antoine Admit Date: 07/30/2024 Dear Omari Coburn DO, A review of the medical record indicates additional documentation may be needed. Please review below and update the documentation accordingly. Clinical Indicators: Progress notes 07/31 - CKD Stable and well compensated Follow renals. Bun 15 Cr. 1.08 Gfr 49 Please clarify which of the following accurately represents the patient's renal status: CKD, please provide stage 1, 2, 3a, 3b, 4 etc. ESRD - CKD V now requiring permanent dialysis and/or transplant Other (explain) Clinically unable to determine (explain) Thank you, Myriam Gatica, CCS, CDIS Use of terms such as suspected, likely, concern for, or probable (associated with a specific diagnosi s that is being evaluated, monitored, or treated as if it exists) are acceptable and can be coded in the inpatient se tting, when documented at the time of discharge. Please use your independent medical judgment in providing your response. THIS QUERY IS PART OF THE PERMANENT MEDICAL RECORD
[2024-08-02] MEDS: Fluticasone/Vilanterol 200/25 BLST.W.DEV 1 PUFF INHALE (08:09)
[2024-08-02 08:10] VITALS: PULSE 65; RESP 20; O2SAT 95
[2024-08-02] MEDS: Cholecalciferol (Vitamin D3) 25 MCG TABLET PO (08:18)
[2024-08-02] MEDS: 0.9 % Sodium Chloride Flush 3 ML SYRINGE IVFLUSH (08:18)
[2024-08-02] MEDS: dexAMETHasone sod phosphate 4 MG/ML VIAL 6 MG IVPUSH (08:18)
[2024-08-02] MEDS: Apixaban 5 MG TABLET PO (08:18)
[2024-08-02] MEDS: Multivitamin TABLET 1 TAB PO (08:18)
[2024-08-02] MEDS: Aspirin Enteric Coated 81 MG TABLET.DR PO (08:18)
[2024-08-02 09:20] LABS: MANUAL DIFF FLAG NO
[2024-08-02 09:23] LABS: Basophils Percent Auto 0.3 % (0-2); Eosinophils Percent Auto 0.1 % (0-4); Hematocrit 37.4 % (37.0-47.0); Hemoglobin 11.7 g/dl (12.0-16.0); Imm Gran Abs Auto 0.06 X10*3/uL (0.00-0.03); Imm Gran Pct Auto 0.8 % (0.0-0.4); Lymphocytes Absolute Auto 1.4 X10*3/uL (1.2-4.9); Lymphocytes Percent Auto 18.9 % (20-40); Mean Corpuscular HGB Conc 31.3 g/dl (31.0-35.0); Mean Corpuscular Hemoglobin 28.1 pg (27.0-33.0); Mean Corpuscular Volume 89.9 fL (80.0-98.0); Mean Platelet Volume 10.7 fL (9.4-12.3); Monocytes Absolute Auto 0.6 X10*3/uL (0.1-1.2); Monocytes Percent Auto 7.6 % (2-11); Neutrophils Absolute Auto 5.2 x10*3/uL (2.0-8.3); Neutrophils Percent Auto 72.3 % (45-73); Platelet Count 244 X10*3/uL (160-400); Red Blood Count 4.16 X10*6/uL (4.20-5.50); Red Cell Distribution Width 15.7 % (11.0-16.0); White Blood Count 7.2 X10*3/uL (4.8-10.8)
[2024-08-02 09:43] LABS: Alanine Aminotransferase 29 U/L (0-31); Albumin Level 3.6 g/dL (3.5-5.0); Alkaline Phosphatase 49 U/L (39-117); Anion Gap 11 (12-20); Aspartate Amino Transferase 34 U/L (5-31); Bilirubin Total 0.3 mg/dL (0.0-1.0); Blood Urea Nitrogen 30 mg/dL (9-16); Calcium 8.4 mg/dL (8.4-10.2); Carbon Dioxide 26 mmol/L (22-29); Chloride 110 mmol/L (96-108); Creatinine Clr Calc Pharmacy 57.6; Estimated Glomerular Filt Rate 55; Glucose Random 96 mg/dL (60-115); Potassium 3.9 mmol/L (3.3-5.1); Sodium 143 mmol/L (135-145)
--- NOTE | 2024-08-02 10:38 | P.CONCA_ITS ---
History of Present Illness History of Present Illness Date of Service: 08/02/24 Requesting physician: Omari Coburn Consult reason: other (Av block) Chief complaint: SOB, hypoxia, COVID Narrative: I was consulted to see Preeti in cardiology consultation today for noted AV block on full disclosure cardiac telemetry. Patient is 79-year-old female with prior history of severe aortic stenosis by echocardiogram being followed by Dr. Dee at [facility] and has been evaluate for transcatheter valve replacement. Patient also history of diastolic heart failure, hypertension, coronary artery disease, obesity, COPD, paroxysmal atrial fibrillation on oral anticoagulation. Patient present in the hospital with worsening shortness of breath and was noted to have COVID with hypoxemia. Treated with steroids for COPD exacerbation as well as COVID. He is doing well. She was admitted to a cardiac floor and 2 nights ago was noted to have Mobitz type 1 second-degree AV block. Subsequent last night was noted to have more advanced AV block preceded by Mobitz type 1 second-degree AV block. Her metoprolol was withheld this morning. She denies any prior history of syncope. Denies any symptoms of lightheadedness. She denies any orthopnea, PND, leg edema. BNP on admission was noted to be 745. Troponin was mildly elevated. All probably related to hypoxemia and COPD exacerbation in the setting of underlying diastolic dysfunction severe aortic stenosis with coronary disease. Review of Systems 2 Constitutional: Constitutional: Reports no additional constitutional complaints Eyes: Eyes: Reports no additional eye complaints Cardiovascular: Cardiovascular: Denies chest pain, Denies leg edema, Denies lightheadedness, Denies Loss of Consciousness, Reports dyspnea on exertion and Denies orthopnea Respiratory: Respiratory: Reports no additional respiratory complaints and Reports dyspnea on exertion Gastrointestinal: Gastrointestinal: Reports no additional gastrointestinal complaints Genitourinary: Genitourinary: Reports no additional female genitourinary complaints Musculoskeletal: Musculoskeletal: Reports no additional musculoskeletal complaints Integumentary/Breasts: Skin/Breast: Reports system reviewed and no additional complaints, except as docu Neurologic: Reports system reviewed and no additional complaints, except as documented Psychiatric: Psychiatric: Reports no additional psychiatric complaints [facility] Past Medical History Medical History Lymphedema Lymphedema of both lower extremities Stress incontinence Chronic kidney disease Diverticulitis Atrial fibrillation Mild intermittent asthma Osteoarthritis Dyslipidemia Essential hypertension Family History Family History Son Esophageal cancer Surgical History Surgical History Hx of colonoscopy History of tubal ligation Social History Social History Household Members: None Housing: Apartment Do you presently have visiting nurse or other home services: No Alcohol intake: current Alcohol intake frequency: holidays/special occasions only Comment: low fall supervise with walker Patient Tobacco Use Status: Former Tobacco user Tobacco use type: Cigarette Years Smoked: 40 yrs e-Cigarette/Vaping Use: Never Used Second Hand Smoke Exposure: No service: No Current occupational status: retired 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 Current occupational exposures/hazards: No Cognitive needs: No Hearing needs: No Vision needs: Yes Meds Allergies Allergy/AdvReac Type Severity Reaction Status Date / Time No Known Allergies Allergy Verified 07/30/24 07:49 Active Medications: Current Medications Acetaminophen (Acetaminophen 325 Mg Tablet) 650 mg PO Q6H PRN PRN Reason: Pain, Mild 1-3,fever,headache Albuterol Sulfate (Albuterol Sulfate 90 Mcg 8 Gm Inhaler) 1 puff INHALE Q6H PRN PRN Reason: shortness of breath or wheezing Albuterol/Ipratropium (Albuterol/Iprat 2.5/0.5mg 3 Ml Ampul.Neb) 3 ml INHALE TID PRN PRN Reason: shortness of breath Apixaban (Apixaban 5 Mg Tablet) 5 mg PO BID COUNTS INCLUDE 234 BEDS AT THE [facility] Last Admin: 08/02/24 08:18 Dose: 5 mg Aspirin (Aspirin Enteric Coated 81 Mg Tablet.) 81 mg PO DAILY COUNTS INCLUDE 234 BEDS AT THE [facility] Last Admin: 08/02/24 08:18 Dose: 81 mg Atorvastatin Calcium (Atorvastatin Calcium 80 Mg Tablet) 80 mg PO BEDTIME COUNTS INCLUDE 234 BEDS AT THE [facility] Last Admin: 08/01/24 20:01 Dose: 80 mg Calcium Carbonate (Calcium Carbonate 750 Mg Tab.Chew) 750 mg PO Q4H PRN PRN Reason: Heartburn Dexamethasone Sodium Phosphate (Dexamethasone Sod Phosphate 4 Mg/Ml Vial) 6 mg IVPUSH DAILY COUNTS INCLUDE 234 BEDS AT THE [facility] Last Admin: 08/02/24 08:18 Dose: 6 mg Fluticasone/Vilanterol (Fluticasone/Vilanterol 200/25 Blst.W.Dev) 1 puff INHALE RDAILY COUNTS INCLUDE 234 BEDS AT THE [facility] Last Admin: 08/02/24 08:09 Dose: 1 puff Furosemide (Furosemide 20 Mg Tablet) 20 mg PO DAILY PRN; Protocol PRN Reason: fluid overload Isosorbide Mononitrate (Isosorbide Mononitrate 30 Mg Tab.Er.24h) 30 mg PO DAILY COUNTS INCLUDE 234 BEDS AT THE [facility]; Protocol Last Admin: 08/02/24 09:07 Dose: Not Given Magnesium Hydroxide (Milk Of Magnesia 30 Ml Oral.Susp) 30 ml PO DAILY PRN PRN Reason: Constipation Melatonin (Melatonin 3 Mg Tablet) 6 mg PO BEDTIME PRN PRN Reason: Insomnia Metoprolol Succinate (Metoprolol Succinate Er 100 Mg Tab.Er.24h) 100 mg PO DAILY COUNTS INCLUDE 234 BEDS AT THE [facility]; Protocol Last Admin: 08/02/24 09:07 Dose: Not Given Multivitamins/Vitamin C (Multivitamin Tablet) 1 tab PO DAILY COUNTS INCLUDE 234 BEDS AT THE [facility] Last Admin: 08/02/24 08:18 Dose: 1 tab Ondansetron HCl (Ondansetron Hcl 4 Mg/2 Ml Vial) 4 mg IVPUSH Q8H PRN PRN Reason: Nausea and Vomiting Sodium Chloride (0.9 % Sodium Chloride Flush 3 Ml Syringe) 3 ml IVFLUSH QSHIFT COUNTS INCLUDE 234 BEDS AT THE [facility] Last Admin: 08/02/24 08:18 Dose: 3 ml Vitamin D (Cholecalciferol (Vitamin D3) 25 Mcg Tablet) 25 mcg PO DAILY COUNTS INCLUDE 234 BEDS AT THE [facility] Last Admin: 08/02/24 08:18 Dose: 25 mcg Home Medications ?Medication ?Instructions ?Recorded ?Confirmed ?Last Taken ?Type cholecalciferol (vitamin D3) 25 25 mcg PO DAILY 07/30/21 07/30/24 07/30/24 07:00 History mcg (1,000 unit) capsule metoprolol succinate 100 mg 100 mg PO DAILY 07/30/21 07/30/24 07/30/24 07:00 History tablet,extended release 24 hr omega 7-ati-evd-fish oil 1,000 mg 1 cap PO DAILY 06/12/22 07/30/24 07/30/24 07:00 History (120 mg-180 mg) capsule (Fish Oil) apixaban 5 mg tablet (Eliquis) 5 mg PO BID 10/29/22 07/30/24 07/30/24 07:00 History aspirin 81 mg tablet,delayed 81 mg PO DAILY 12/25/22 07/30/24 07/30/24 07:00 History release isosorbide mononitrate 30 mg 30 mg PO DAILY 12/25/22 07/30/24 07/30/24 07:00 History tablet,extended release 24 hr iqfwacrj-obdsbvf-qpsn-lutein tablet 1 tab PO DAILY 12/25/22 07/30/24 07/30/24 07:00 History rosuvastatin 20 mg tablet 20 mg PO BEDTIME 12/25/22 07/30/24 Unknown History furosemide 20 mg tablet 20 mg PO DAILY PRN fluid overload 07/30/24 07/30/24 Unknown History vit C 250 mg-vit E 90 mg-zinc 40 1 tab PO BID 07/30/24 07/30/24 07/30/24 07:00 History mg-copper 1 [id number]-ljhlvw capsule (PreserVision AREDS-2) Physical Exam 2 Vital Signs: Vital Signs: Last Vital Signs Temp 97.6 F 08/02/24 07:37 Pulse 65 08/02/24 08:10 Resp 20 08/02/24 08:10 BP 150/66 H 08/02/24 07:37 Pulse Ox 95 08/02/24 07:37 O2 Del Method Room Air 08/02/24 07:37 O2 Flow Rate 1 07/30/24 10:13 BMI result Body Mass Index 55.7 Const: General: cooperative, comfortable, no acute distress, alert and awake Nutritional Appearance: obese Orientation/consciousness: patient oriented x3 Limitations: ambulation with walker HEENT: Head: Yes normocephalic and Yes atraumatic Neck: Neck: Yes trachea midline, Yes supple and No no JVD Carotids: delayed carotid upstroke Resp: Effort & Inspection: normal respiratory effort Auscultation: clear to auscultation bilaterally and diminished lung sounds Cardio: Jugular venous distension: no JVD Rate: regular rate Rhythm: r egular rhythm Heart sounds: S1 normal heart sound present, no click, no gallops and Murmur heart sound present systolic late and harsh; not decrescendo and not crescendo GI: Auscultation: normal bowel sounds Skin: General skin exam: no rashes or lesions noted Neuro: General: patient oriented x3 and no focal motor deficits Extrem: General: Yes no clubbing, cyanosis or edema Psych: Appearance: grossly normal Objective Labs and Meds 08/02/24 08:45 08/02/24 08:45 Lab results: Laboratory Results - last 24 hr 08/02/24 08:45 WBC 7.2 RBC 4.16 L Hgb 11.7 L Hct 37.4 MCV 89.9 MCH 28.1 MCHC 31.3 RDW 15.7 Plt Count 244 D MPV 10.7 Immature Gran % (Auto) 0.8 H Neut % (Auto) 72.3 Lymph % (Auto) 18.9 L [place] % (Auto) 7.6 Eos % (Auto) 0.1 Baso % (Auto) 0.3 Lymph # (Auto) 1.4 [place] # (Auto) 0.6 Eos # (Auto) 0.0 Baso # (Auto) 0.0 Abs Immat Gran (auto) 0.06 H Absolute Neuts (auto) 5.2 Absolute Nucleated RBC 0.000 Nucleated RBC % (auto) 0.0 Sodium 143 Potassium 3.9 Chloride 110 H Carbon Dioxide 26 Anion Gap 11 L BUN 30 H Creatinine 0.97 Estim Creat Clear Calc 57.6 Estimated GFR 55 Random Glucose 96 Calcium 8.4 D Magnesium 2.0 Total Bilirubin 0.3 AST 34 H ALT 29 Alkaline Phosphatase 49 Total Protein 6.0 L Albumin 3.6 Assessment and Plan (1) AV block: Status: Acute Incidentally noted to have AV block on full disclosure cardiac telemetry. Patient has no symptoms for it. Two nights ago appears to be Mobitz type 1 second-degree AV block at AV cori level. Subsequent night also appears that she went into more advanced AV block after a Mobitz type 1 second-degree AV block. The QRS complex is narrow and therefore escape complex appears to be junctional in the block appears to be at AV cori level most likely related to calcific aortic valve disease, exacerbated by metoprolol therapy. She will most likely may require dual-chamber pacemaker placement given her severe aortic stenosis and need for transcatheter valve replacement with high incidence of pacemaker requirement in these patients. Currently asymptomatic and I would agree with holding metoprolol therapy and will touch base with her overlock waistline joiner to make a plan for possible outpatient consideration for pacemaker. Would also consider full disclosure cardiac telemetry. Advised to seek emergency care if she has significant symptoms either of lightheadedness or syncope. (2) Aortic stenosis: Status: Acute Aortic stenosis appears to be severe clinically and as well as by echocardiogram from the office notes and he is having progressive symptoms. Elevated BNP as well as progressive shortness of breath exertion. I think she should be considered for transcatheter aortic valve replacement. Again will touch base with her primary overlock waistline joiner to discuss this. Has no indication for aspirin therapy. Continue aggressive risk factor modification including high-intensity statin therapy and full oral anticoagulation. (3) Paroxysmal atrial fibrillation: Status: Acute Prior history of paroxysmal atrial fibrillation without any obvious clinical recurrence. Metoprolol is being withheld. There is likelihood of recurrence of atrial fibrillation. Advise close follow-up with event monitor with mobile telemetry. Continue full oral anticoagulation Eliquis. I do not see any indication for aspirin therapy as this would increase her bleeding risk. Will follow up with her own overlock waistline joiner after discussion. Procedures Date of Service Date of Service: 08/02/24
[2024-08-02 11:07] VITALS: BP 121/55; PULSE 68; RESP 20; TEMP 36.3; O2SAT 96
[2024-08-02] MEDS: Isosorbide Mononitrate 30 MG TAB.ER.24H PO (11:25)
--- NOTE | 2024-08-02 15:26 | PM.DS ---
DS: Providers Provider Date of Service: 08/02/24 Date of admission: 07/30/24 10:42 Date of discharge: 08/02/24 Primary care physician: Shantelle Ba MD Consults: 08/02/24 07:48 Consult to Cardiology Routine Consulting Provider: [facility] Reason for consultation: Scott Has provider been notified: Yes DS: Diagnosis Discharge Diagnosis (1) AV block: Status: Acute (2) Aortic stenosis: Status: Acute (3) Paroxysmal atrial fibrillation: Status: Acute DS: Summary Hospital Course Hospital Course: 79-year-old female past medical history significant for lymphedema atrial fibrillation on anticoagulation, CKD, mild intermittent asthma, osteoarthritis, dyslipidemia, hypertension who presented to the emergency department for complaints shortness of breath, productive cough w/ clear/ thick sputum, fatigue, malaise, myalgias over the past two days worsening. Denies sick contacts. Patient vaccinated X4 against covid. No fevers, chills, headache, vision changes, dizziness, weakness, abd pain, n/v/d. While in the emergency department she had labs, imaging and viral testing done. Her CBC showed no acute abnormalities . Chemistry with no acute electrolyte abnormalities needing intervention. BUN 15, creatinine 1.08. She was noted to have an elevated troponin of 42.0 with a nonischemic EKG. Her BNP elevated at 745. Chest x-ray no acute findings. An ambulatory trial was done on patient and she was noted to desaturate and have intermittent hypoxia with ambulation. She was saturating 83% on room air and was placed on 1 L of nasal cannula. She is now saturating 97%. Hospital course Patient was admitted to telemetry and maintained on IV dexamethasone. She never required O2 throughout her hospitalization. Of note her monitor showed intermittent AV block of varying degrees and on the day prior to discharge she was seen by Cardiology and was found to be in third-degree block. Dr. Beltran spoke with patient's primary steward/stewardess bath at [facility] in the agreement was to stop the metoprolol and they will follow up the patient later this week in the office. At this point in time she is medically acceptable for discharge Time Attestation Discharge Coordination Time (in mins): 35 Quality: Safe Use of Opioids Does Pt have an Active Cancer Diagnosis on the Problem List?: No Quality: Stroke Does the patient have a stroke diagnosis?: No Physical Exam Vital Signs: Vital Signs: Last Vital Signs Temp 97.4 F 08/02/24 11:07 Pulse 68 08/02/24 11:07 Resp 20 08/02/24 11:07 BP 121/55 L 08/02/24 11:07 Pulse Ox 96 08/02/24 11:07 O2 Del Method Room Air 08/02/24 11:07 O2 Flow Rate 1 07/30/24 10:13 BMI result Body Mass Index 55.7 Const: Other: Awake alert no acute distress. Speaking in full sentences Resp: Other: Diminished with scattered expiratory wheezes throughout Cardio: Other: No S4; positive S1-S2; no S3 murmurs rubs or gallops GI: Other: Soft nontender nondistended normoactive bowel sounds Extrem: Other: No edema bilaterally DS: Data Data Completed and Pending Labs on day of discharge: Laboratory Results - last 24 hr 08/02/24 08:45 WBC 7.2 RBC 4.16 L Hgb 11.7 L Hct 37.4 MCV 89.9 MCH 28.1 MCHC 31.3 RDW 15.7 Plt Count 244 D MPV 10.7 Immature Gran % (Auto) 0.8 H Neut % (Auto) 72.3 Lymph % (Auto) 18.9 L [place] % (Auto) 7.6 Eos % (Auto) 0.1 Baso % (Auto) 0.3 Lymph # (Auto) 1.4 [place] # (Auto) 0.6 Eos # (Auto) 0.0 Baso # (Auto) 0.0 Abs Immat Gran (auto) 0.06 H Absolute Neuts (auto) 5.2 Absolute Nucleated RBC 0.000 Nucleated RBC % (auto) 0.0 Sodium 143 Potassium 3.9 Chloride 110 H Carbon Dioxide 26 Anion Gap 11 L BUN 30 H Creatinine 0.97 Estim Creat Clear Calc 57.6 Estimated GFR 55 Random Glucose 96 Calcium 8.4 D Magnesium 2.0 Total Bilirubin 0.3 AST 34 H ALT 29 Alkaline Phosphatase 49 Total Protein 6.0 L Albumin 3.6 Discharge Plan Discharge Anticipated Discharge Date/Time: 08/02/24 15:22 Patient Disposition: Home Health Service Discharge Diagnosis: Acute hypoxic respiratory failure secondary to COVID-19 Referrals: Shantelle Ba MD [Primary Care Provider] - 1 Week Discharge Medications: New dexamethasone sodium phosphate 4 mg/mL Solution 6 mg IVPUSH DAILY Qty: 7 0RF Continued budesonide-formoterol [Symbicort] 160-4.5 mcg/actuation HFA aerosol inhaler 1 puff PO Q12H Qty: 10.2 1RF albuterol sulfate 90 mcg/actuation HFA aerosol inhaler 1 inh inhalation Q6H PRN (Reason: shortness of breath or wheezing) Qty: 8.5 1RF furosemide 20 mg Tablet 20 mg PO DAILY PRN (Reason: fluid overload) PreserVision AREDS-2 250-90-40-1 mg Capsule 1 tab PO BID cholecalciferol (vitamin D3) 25 mcg (1,000 unit) capsule 25 mcg PO DAILY aspirin 81 mg tablet,delayed release (DR/EC) 81 mg PO DAILY rosuvastatin 20 mg tablet 20 mg PO BEDTIME isosorbide mononitrate 30 mg tablet extended release 24 hr 30 mg PO DAILY lvhvvrhx-cmotppl-oljy-lutein Tablet 1 tab PO DAILY omega 0-bis-smr-fish oil [Fish Oil] 1,000 mg (120 mg-180 mg) capsule 1 cap PO DAILY Eliquis 5 mg tablet 5 mg PO BID Discontinued metoprolol succinate 100 mg tablet extended release 24 hr 100 mg PO DAILY Discharge Orders: Discharge Order (Routine); Ordered 08/02/24 Ordered By: Omari Cobunr Diet: Advance to usual diet Activity on Discharge: As tolerated Stand Alone Forms: Patient Portal Discharge page Print Language: Belarusian Care Plan Goals: Resume all pre-hospital medications except metoprolol. Dexamethasone 6 mg daily for 1 week Health Concerns: Your steward/stewardess bath we will call you with follow up visit this week Plan of Treatment: Further plans as per your steward/stewardess bath Assessment: See discharge summary
--- NOTE | 2024-08-02 15:47 | MHC.CM.PN ---
Pt has been medically cleared for DC, she will go home via family transport, plan is home, self care.
[2024-08-02 16:00] VITALS: BP 137/63; PULSE 81; RESP 16; TEMP 36.4; O2SAT 94
== END 2024-08-02 16:20 | disposition home or self-care (01) | DRG 177 ==
LOC: HO.ED 10:19 → HO.EDOVER 10:51 → HO.IMC 13:48
PROVIDERS: Admitting Provider Physician Assistant; Emergency Provider Emergency Medicine; PCP Internal Medicine; Visit Provider Hospitalist
DX: U07.1 COVID-19 (principal); J96.01 Acute respiratory failure with hypoxia; I13.0 Hypertensive heart and chronic kidney disease with heart failure and stage 1 through stage 4 chronic kidney disease, or unspecified chronic kidney disease; I50.32 Chronic diastolic (congestive) heart failure; J44.1 Chronic obstructive pulmonary disease with (acute) exacerbation; Z68.43 Body mass index [BMI] 50.0-59.9, adult; I44.1 Atrioventricular block, second degree; I35.0 Nonrheumatic aortic (valve) stenosis; N18.31 Chronic kidney disease, stage 3a; J45.20 Mild intermittent asthma, uncomplicated; E78.5 Hyperlipidemia, unspecified; I48.0 Paroxysmal atrial fibrillation; E66.09 Other obesity due to excess calories; Z79.01 Long term (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; Z79.82 Long term (current) use of aspirin; Z79.899 Other long term (current) drug therapy
CPT/HCPCS: 0241U; 36415; 71046; 80048; 80053; 80076; 83690; 83735; 83880; 84484; 85025; 93005; 94640; 99222; 99285; J1100; J2919

== ENCOUNTER → 2024-07-30 07:53 | Outpatient (BNV) | payer MEDICARE, SELFPAY | PROVIDERS: PCP Internal Medicine; Visit Provider Specialist | DX: R06.02 Shortness of breath (principal) | CPT/HCPCS: 71046 ==

== ENCOUNTER → 2024-07-30 07:53 | Outpatient (BNV) | payer MEDICARE, SELFPAY | PROVIDERS: Admitting Provider Physician Assistant; Emergency Provider Emergency Medicine; PCP Internal Medicine; Visit Provider Internal Medicine Cardiovascular Disease | DX: R06.02 Shortness of breath (principal) | CPT/HCPCS: 93010 ==

== ENCOUNTER → 2024-07-30 10:42 | Outpatient (BNV) | payer MEDICARE, SELFPAY | PROVIDERS: Admitting Provider Physician Assistant; Emergency Provider Emergency Medicine; PCP Internal Medicine; Visit Provider Internal Medicine Cardiovascular Disease | DX: I44.30 Unspecified atrioventricular block (principal); I35.0 Nonrheumatic aortic (valve) stenosis; I48.0 Paroxysmal atrial fibrillation | CPT/HCPCS: 99222 ==

== ENCOUNTER → 2024-07-30 10:42 | Outpatient (BNV) | payer MEDICARE, SELFPAY | PROVIDERS: Admitting Provider Physician Assistant; Emergency Provider Emergency Medicine; PCP Internal Medicine; Visit Provider Physician Assistant | DX: I44.30 Unspecified atrioventricular block (principal); I35.0 Nonrheumatic aortic (valve) stenosis; I48.0 Paroxysmal atrial fibrillation | CPT/HCPCS: 99239 ==

== ENCOUNTER 2024-09-05 10:18 | Outpatient (AMB) | payer MEDICARE, SELFPAY ==
--- OUTSIDE RECORDS SUMMARY | 2024-09-05 11:02 | XMS_ITS | Encounter Summary ---
Author Organization [facility] Address [address] [place] [address] Care Team Providers Care Stripping And Booking Machine Operator Name Role Phone Shantelle Ba MD Primary Care Provider Reason for Referral * Cardiac Stress Testing (Routine) - Closed Specialty Diagnoses / Procedures Referred By Contac t Referred To Contact Cardiology Diagnoses Paroxysmal atrial fibrillation (CMS/HCC) Bradycardia Procedures Cardiac event monitor DC EXTERNAL PATIENT ACTIVATED ECG DOWNLOAD W RESULTS & INTERP <= 30 DAYS DC EXTERNAL PAT AUTO ACTIVATED ECG INCLUDING TRANSMISSION UP TO 30 DAYS DC EXTERNAL MOBILE CV TELEMETRY W ECG RECORDING <=30D PHYSCIAN REV & INTERP DC EXTERNAL MOBILE CV TELEMETRY W ECG RECORDING TECH SUPPORT UP TO 30 DAYS DC ECG UP TO 30 DAYS RECORDING Krystin Yang NP [address] [place] [address] [place] [address] Referral ID Status Reason Start Date Expiration Date Visits Re quested Visits Authorized [id number] Closed 08/09/2024 08/09/2025 1 1 Reason for Visit * Reason Comments Follow-up Encounter Details Date Type Department Care Team (Late st Contact Info) Description 08/09/2024 3:10 PM EST Office Visit [facility] [address] [place] [address] Krystin Yang NP [address] [place] [address] [address] [place] [address] Paroxysmal atrial fibrillation (CMS/HCC) (Primary Dx); Bradycardia; Aortic valve stenosis, etiology of cardiac valve disease unspecified Social History Tobacco Use Types Packs/Day Years Used Date Smoking Tobacco: Never Smokeless Tobacco: Never Alcohol Use Standard Drinks/Week Comments Not Currently 0 (1 standard drink = 0.6 oz pur e alcohol) Sex and Gender Information Value Date Recorded Sex Assigned at Not on file Gender Identity Not on file Sexual Orientation Not on file Job Start Date Occupation Industry Not on file Not on file Not on file documented as of this encounter Last Filed Vital Signs Vital Sign Reading Time Taken Comments Blood Pressure 124/92 08/09/2024 3:04 PM EST Pulse 94 08/09/2024 3:04 PM EST Temperature - - Respiratory Rate - - Oxygen Saturation 96% 08/09/2024 3:04 PM EST Inhaled Oxygen Concentration - - Weight 118 kg (261 lb) 08/09/2024 3:04 PM EST Height 152.4 cm (5') 08/09/2024 3:04 PM EST Body Mass Index 50.97 08/09/2024 3:04 PM EST documented in this encounter Progress Notes * Krystin Yang NP - 08/09/2024 3:10 PM ESTAssociated Problem(s): Atrial fibrillation (CMS/HCC) Patient has a history of paroxysmal atrial fibrillation. Metoprolol on hold as outlined below givenbradycardia. She continues on Eliquis 5 mg orally twice daily. Orders: Cardiac event monitor; Future * Krystin Yang NP - 08/09/2024 3:10 PM ESTAssociated Problem(s): Aortic stenosis The patient has a history of severe aortic valve stenosis. In the past, the patient underwent evaluation with a left heart catheterization November 2022 which showed evidence of severe aortic stenosis, however she was seen in consultation with Dr. Gong in August 2023 with recommendations for watchful waiting with surveillance echocardiograms and clinical assessment every 6 months prior to proceeding with evaluation of aortic valve replacement. At her last office visit in April, it was recommended she be reevaluated by Dr. Gong regarding the possibility of aortic valve replacement. Unfortunately, the patient did not have a follow-up appointment scheduled. Given her recent hospitalization, recommend she be reevaluated by Dr. Gong regarding the possibility of the aortic valve replacement. She has an appointment scheduled for August 26. I reviewed the pathophysiology of aortic stenosis which is that it will continue to worsen until itbecomes severe. I reviewed symptoms to look out for including worsening shortness of breath, increasing exertional fatigue, exertional chest pain, lightheadedness, syncope. I reviewed that there is no medical therapy to delay progression of this disease and that the only treatment shown to improve o utcomes is aortic valve replacement. I reviewed that there are currently 2 methods of replacement that are options including surgical replacement versus TAVR. I reviewed that the indications for replacement are severe, symptomatic aortic stenosis. * Krystin Yang NP - 08/09/2024 3:10 PM EST Images from the original note were not included. [facility] PRIMARY ORDERING MACHINE OPERATOR: Jose M Shane MD PCP: Shantelle Ba MD HPI: Preeti Antoine is a 79 y.o. old female with a history of coronary artery disease, aortic stenosis, paroxysmal atrial fibrillation, obesity, chronic lower extremity lymphedema, hyperlipidemia, arterial hypertension, bronchial asthma, depression, anxiety, and osteoarthritis. Patient was seen in consultation with Dr. Gong in August 2023 for consideration of TAVR. At thatvisit, it was in agreement for watchful waiting with echocardiogram and clinical assessment every 6months. The patient's last office visit in April 2024, her symptoms were stable with recommendations tofollow-up with Dr. Gong. Unfortunately, I do not see that the patient had a reevaluation with for consideration of TAVR. In the meantime, she was seen at [facility] 08/02/2024 where she presented with worsening shortness of breath. She was noted to have COVID and hypoxemia. She was treated with steroids for COPD exacerbation as well. Telemetry was noted with Mobitz type Isecondary AV block with lower heart rates. Her metoprolol was placed on hold. Patient presents today accompanied by her daughter. Her breathing is stable, continues with SOB on minimal exertion and chronic LE edema which is unchanged. She denies any chest pain, dizziness, palpitations, orthopnea, PND, syncope, or near syncope. Cardiac testin. Echocardiogram 08/20/2022: Normal left ventricular systolic function with a left ventricular ejection fraction of 55 to 60%. Abnormal LV global longitudinal strain of -15.5%. Grade 2 LV diastolic dysfunction. Normal RV size and function. Mildly dilated left atrium. Moderate to severe aortic valvestenosis (mean gradient 39 mmHg and KELLY 0.7). No aortic insufficiency. Mild mitral valve stenosis. Mild mitral valve insufficiency. Mild pulmonary hypertension. 2. Cardiac CT scan 10/10/2022: There is heavy coronary artery calcification. Moderate calcification in the left main with less than 25% stenosis. Heavy calcification in the proximal to mid LAD with more than 70% stenosis in the mid LAD (lumen is difficult to assess due to calcium artifact). Moderate calcification in the circumflex with multifocal less than 50% stenosis in the proximal to mid segment. Marked ossification in the RCA with multifocal less than 50% stenosis throughout the RCA. 3. Left heart catheterization at [facility] with Dr. Gong 11/05/22: Left main 20% stenosis, 30% stenosis in proximal LAD, LCx with mild luminal irregularities <30%, mild diffuse disease to RCA <30%. Severe aortic stenosis (mean aortic valve gradient 39 mmhg, calculated valve areaof 0.73 cm2). It was recommended given the patient is not reporting symptoms consistent with heart f ailure, continue with surveillance echocardiogram and clinical assessment awaiting the development of symptoms before proceeding with evaluation for aortic valve replacement. 4. Echocardiogram 02/19/2023: Normal ventricular systolic function with a left ventricular ejection fraction of 55 to 60%. Normal RV size and function. Moderate to severe aortic stenosis. Mild mitral stenosis. Mild insufficiency. When compared to the echocardiogram done in December 2022, no significant changes were noted. 5. Echocardiogram 08/21/2023 showed normal left ventricular chamber size. Mild concentric LVH. LVEF 55 to 60%. Normal RV size and function. Moderate to severe aortic stenosis. Mild mitral stenosis. Nosignificant changes to the degree of stenosis when compared to last echocardiogram January 2023. 6. Echocardiogram 02/22/2024 showed normal left ventricular size and systolic function. Normal regional motion. Mild concentric LVH. LVEF 55 to 60%. Severe aortic stenosis. Pulmonary artery systolic pressure is elevated. Compared to prior study August 2023, aortic valve gradients have increased andmeasurements are most consistent with severe aortic stenosis. ACTIVE MEDICATIONS: Outpatient Medications Marked as Taking for the 08/09/24 encounter (Office Visit) with Krystin Yang NP Medication Sig Dispense Refill albuterol sulfate (ProAir RespiClick) 90 mcg/actuation aerosol powdr breath activated Inhale 1 puffby mouth 1 (one) time each day. apixaban (Eliquis) 5 mg tablet TAKE 1 TABLET BY MOUTH TWICE DAILY 180 tablet 1 aspirin 81 mg EC tablet Take 1 tablet (81 mg total) by mouth 1 (one) time each day. cholecalciferol (VITAMIN D-3) 25 mcg (1,000 unit) capsule Take by mouth 1 (one) time each day. furosemide (LASIX) 20 mg tablet Take 1 tablet (20 mg total) by mouth 1 (one) time each day. isosorbide mononitrate (IMDUR) 30 mg 24 hr tablet Take 1 tablet (30 mg total) by mouth 1 (one) timeeach day. multivit-minerals/folic acid (CENTRUM ADULTS ORAL) 1 (one) time each day. omega-3 fatty acids (FISH OIL CONCENTRATE ORAL) Take 1 tablet by mouth 1 (one) time each day. rosuvastatin (CRESTOR) 20 mg tablet Take 1 tablet (20 mg total) by mouth 1 (one) time each day. Symbicort 160-4.5 mcg/actuation inhaler Inhale 1 puff by mouth every 12 (twelve) hours. vit A/vit C/vit E/zinc/copper (ICAPS AREDS ORAL) Take 1 tablet by mouth 2 (two) times a day. PAST MEDICAL HISTORY: Patient Active Problem List Diagnosis Aortic stenosis Atrial fibrillation (CMS/HCC) CAD (coronary artery disease) Hyperlipidemia Hypertension Morbid obesity (CMS/HCC) ALLERGIES: No Known Allergies SOCIAL HISTORY: Social History Tobacco Use Smoking status: Never Smokeless tobacco: Never Substance Use Topics Alcohol use: Not Currently PHYSICAL EXAM: Vitals: 08/09/24 1504 BP: (!) 124/92 BP Location: Left arm Patient Position: Sitting BP Cuff Size: Large adult Pulse: 94 SpO2: 96% Weight: 118 kg (261 lb) Height: 1.524 m (60 ) Physical Exam Vitals reviewed. Constitutional: General: She is not in acute distress. Appearance: She is not diaphoretic. HENT: Head: Normocephalic. Eyes: Pupils: Pupils are equal, round, and reactive to light. Neck: Vascular: No carotid bruit. Cardiovascular: Rate and Rhythm: Normal rate and regular rhythm. Pulses: Normal pulses. Heart sounds: Murmur heard. Harsh midsystolic murmur is present at the upper right sternal border radiating to the neck. Pulmonary: Effort: Pulmonary effort is normal. No respiratory distress. Breath sounds: Normal breath sounds. No wheezing, rhonchi or rales. Chest: Chest wall: No tenderness. Abdominal: General: Bowel sounds are normal. There is no distension. Palpations: Abdomen is soft. Tenderness: There is no abdominal tenderness. Musculoskeletal: General: No deformity. Cervical back: Normal range of motion. Right lower leg: Edema present. Left lower leg: Edema present. Skin: General: Skin is warm and dry. Neurological: Mental Status: She is alert and oriented to person, place, and time. Psychiatric: Mood and Affect: Mood normal. EKG: No results found for this or any previous visit (from the past 4464 hour(s)). ASSESSMENT/PLAN: Assessment & Plan Paroxysmal atrial fibrillation ([facility]) Patient has a history of paroxysmal atrial fibrillation. Metoprolol on hold as outlined below givenbradycardia. She continues on Eliquis 5 mg orally twice daily. Orders: Cardiac event monitor; Future Bradycardia Patient was found to have bradycardia during her recent hospitalization with noted Mobitz type I secondary AV block on telemetry. She was discharged with her metoprolol placed on hold. She brings in a blood pressure log with heart rates and there have been no significant instances of bradycardia. She denies any dizziness or presyncope or syncope. At this point, recommend she undergo ROCT monitor for further evaluation and to assess for any significant bradycardia, AV blocks or arrhythmias. She will continue to hold her metoprolol in the meantime. Orders: Cardiac event monitor; Future Aortic valve stenosis, etiology of cardiac valve disease unspecified The patient has a history of severe aortic valve stenosis. In the past, the patient underwent evaluation with a left heart catheterization November 2022 which showed evidence of severe aortic stenosis, however she was seen in consultation with Dr. Gong in August 2023 with recommendations for watchful waiting with surveillance echocardiograms and clinical assessment every 6 months prior to proceeding with evaluation of aortic valve replacement. At her last office visit in April, it was recommended she be reevaluated by Dr. Gong regarding the possibility of aortic valve replacement. Unfortunately, the patient did not have a follow-up appointment scheduled. Given her recent hospitalization, recommend she be reevaluated by Dr. Gong regarding the possibility of the aortic valve replacement. She has an appointment scheduled for August 26. I reviewed the pathophysiology of aortic stenosis which is that it will continue to worsen until itbecomes severe. I reviewed symptoms to look out for including worsening shortness of breath, increasing exertional fatigue, exertional chest pain, lightheadedness, syncope. I reviewed that there is no medical therapy to delay progression of this disease and that the only treatment shown to improve o utcomes is aortic valve replacement. I reviewed that there are currently 2 methods of replacement that are options including surgical replacement versus TAVR. I reviewed that the indications for replacement are severe, symptomatic aortic stenosis. Thank you for allowing us to participate in the care of this patient. The patient will follow up inJanuary with dr gong as scheduled, sooner PRN. As per AHA guidelines and previously established plan of care by Dr. Jose M Shane MD, we discussed the following today: 1. Paroxysmal atrial fibrillation (CMS/HCC) 2. Bradycardia 3. Aortic valve stenosis, etiology of cardiac valve disease unspecified [facility] documented in this encounter Plan of Treatment Upcoming Encounters Date Type Department Care Team (Late st Contact Info) Description 12/28/2024 1:30 PM EDT Office Visit [facility] [address] [place] [address] Jose M Shane MD [address] [place] [address] [address] [place] [address] Pending Results Name Type Priority Associated Diagnoses Date /Time Cardiac event monitor Cardiac Services Routine Paroxysmal atrial fibrillation ([facility]) Bradycardia 08/15/2024 7:23 AM EST Scheduled Orders Name Type Priority Associated Diagnoses Orde r Schedule Cardiac event monitor Cardiac Services Routine Paroxysmal atrial fibrillation ([facility]/HCC) Bradycardia 1 Occurrences starting 08/09/2024 until 08/09/2025 documented as of this encounter Visit Diagnoses Diagnosis Paroxysmal atrial fibrillation (CMS/HCC)- Primary Atrial fibrillation Bradycardia Other specified cardiac dysrhythmias Aortic valve stenosis, etiology of cardiac valve disease unspecified documented in this encounter Discontinued Medications Medication Sig Discontinue Reason Start Date End Da te metoprolol succinate (TOPROL-XL) 100 mg 24 hr tablet Take 1 tablet (100 mg total) by mouth 1 (one) time each day. Discontinued by another clinician 02/18/2024 08/09/2024 documented as of this encounter Historical Medications * This list may reflect changes made after this encounter. Medication Sig Dispensed Refills Start Date End Date vit A/vit C/vit E/zinc/copper (ICAPS AREDS ORAL) Take 1 tablet by mouth 2 (two) times a day. added in this encounter Care Teams Stripping And Booking Machine Operator Relationship Specialty Start Date End Date Shantelle Ba MD [address] [place] [address] PCP - General 07/11/22 documented as of this encounter
--- OUTSIDE RECORDS SUMMARY | 2024-09-05 11:02 | XMS_ITS | Encounter Summary ---
Author Organization [facility] Address [address] [place] [address] Care Team Providers Care Leather Sponger Name Role Phone Shantelle Ba MD Primary Care Provider Reason for Visit * Reason Onset Date Comments Medical Records 08/29/2024 Encounter Details Date Type Department Care Team (Late st Contact Info) Description 08/29/2024 Telephone [facility] [address] [place] [phone] Shantelle Ba MD [address] [place] [address] Medical Records Social History Tobacco Use Types Packs/Day Years [...] on file documented as of this encounter Progress Notes * Lo Lafleur - 08/29/2024 1:37 PM EST G[facility]20[facility] documented in this encounter Plan of Treatment Upcoming Encounters Date Type Department Care Team (Late st Contact Info) Description 12/28/2024 1:30 PM EDT Office Visit [facility] [address] [place] [address] [place] [address] Jose M Shane MD [address] [place] [address] [address] [place] [address] documented as of this encounter Visit Diagnoses Not on filedocumented in this encounter Care Teams Leather Sponger Relationship Specialty Start Date End Date Shantelle Ba MD [address] [place] [address] PCP - General 07/11/22 documented as of this encounter
--- OUTSIDE RECORDS SUMMARY | 2024-09-05 11:02 | XMS_ITS | Encounter Summary ---
Author Organization [facility] Address [address] [place] [address] Care Team Providers Care Demographer Name Role Phone Shantelle Ba MD Primary Care Provider [phone] Reason for Visit * Reason Onset Date Comments heart rate 08/05/2024 Heart rate Encounter Details Date Type Department Care Team (Late st Contact Info) Description 08/05/2024 Telephone [facility] [address] [place] [phone] Jose M Shane MD [address] [place] [address] [address] [place] [address] heart rate (Heart rate ) Social History Tobacco Use Types Packs/Day Years [...] as of this encounter Progress Notes * Lucy Hahn RN - 08/05/2024 1:47 PM EST I called Latricia and informed her of the below message. Pt is scheduled to see Rose Yang on 08/09/24 @ 3:10 PM. * Jose M Shane MD - 08/05/2024 1:02 PM EST I discussed the patient's case with the seo strategist who evaluated the patient at [facility] (Dr. Beltran). The patient will likely need an evaluation in our office to determine if she will need a TAVR. Please schedule the patient for a posthospital follow-up appointment with me or Natasha Yang for next week. In the meantime, the patient should continue to monitor her heart rate at home. Continue without the metoprolol for now. If her heart rate is sustaining in the 40s, then she should go to the hospital for further evaluation. Also, if her shortness of breath is worsening she should also go to the hospital for further evaluation. If she does go to the hospital, would recommend for her tocome to [facility] or to [facility] so that we can see her given that we do not see patients at [facility]. * Lucy Hahn RN - 08/05/2024 11:42 AM EST I spoke to Latricia, pt's daughter. She brought pt to [facility] on 07/29/24 where she wasdiagnosed with acute respiratory failure secondary to COVID. Pt required O2 supplementation and steroid treatment. The physician at the hospital informed Latricia that pt may need a pacemaker as her HR was going as low as 35 bpm. Her Metoprolol was discontinued. She mentioned pt was supposed to be setup for a TAVR (consult with Dr. Castelan 08/2023), but reported she was not contacted to schedule. Latricia would like to follow up on this, along with the notation of needing a pacemaker. Since being home from the hospital on 08/02/24, Latricia reported pt's shortness of breath has not improved or worsened. No SOB at rest. Pt denies chest pain, lightheadedness, dizziness, and fatigue. BPis averaging 130's/70s, O2 levels have been stable, but noted her HR is labile with readings of- 108 bpm, 102 bpm, 84 bpm. Yesterday, she observed readings in the 40's and 80's. The highest HR she's observed is 108 bpm at rest. Pt is still coughing up clear phlegm frequently and has been taking Dexamethasone 6 mg tab daily as she was prescribed a 7 day supply upon discharge. Educated on signs andsymptoms that require pt to go back to the ER. Lo, can you please obtain [facility] Hospital records? * Ingrid Francisco - 08/05/2024 10:25 AM EST Latricia called pt`s daughter Elidia Álvarez was in [facility] . She was seen by Dr. Beltran . She was told she may need a valve replacement and pacer . She is still npt feeling good . Her heart ratekeeps jumping around. Nael worried . They did stop her Metoprolol Ray documented in this encounter Plan of Treatment Upcoming Encounters Date Type Department Care Team (Late st Contact Info) Description 12/28/2024 1:30 PM EDT Office Visit [facility] [address] [place] [address] Jose M Shane MD [address] [place] [address] [address] [place] [address] documented as of this encounter Visit Diagnoses Not on filedocumented in this encounter Historical Medications * This list may reflect changes made after this encounter. Medication Sig Dispensed Refills Start Date End Date Symbicort 160-4.5 mcg/actuation inhaler Inhale 1 puff by mouth every 12 (twelve) hours. rosuvastatin (CRESTOR) 20 mg tablet Take 1 tablet (20 mg total) by mouth 1 (one) time each day. isosorbide mononitrate (IMDUR) 30 mg 24 hr tablet Take 1 tablet (30 mg total) by mouth 1 (one) time each day. 11/05/2022 furosemide (LASIX) 20 mg tablet Take 1 tablet (20 mg total) by mouth 1 (one) time each day. 02/23/2020 aspirin 81 mg EC tablet Take 1 tablet (81 mg total) by mouth 1 (one) time each day. albuterol sulfate (ProAir RespiClick) 90 mcg/actuation aerosol powdr breath activated Inhale 1 puff by mouth 1 (one) time each day. 01/31/2015 added in this encounter Care Teams Demographer Relationship Specialty Start Date End Date Shantelle Ba MD [address] [place] [address] PCP - General 07/11/22 documented as of this encounter
--- OUTSIDE RECORDS SUMMARY | 2024-09-05 11:02 | XMS_ITS | Encounter Summary ---
Author Organization [facility] Address [address] [place] [address] Care Team Providers Care Polishing Wheel Setter Name Role Phone Shantelle Ba MD Primary Care Provider Reason for Visit * Reason Comments Follow-up Encounter Details Date Type Department Care Team (Late st Contact Info) Description 08/26/2024 9:00 AM EST Consult [facility] [address] [place] [id number] Omari Castelan MD [address] [place] [address] [address] [place] [address] Aortic valve stenosis, etiology of cardiac valve disease unspecified (Primary Dx) Social History Tobacco Use Types Packs/Day Years [...] Sign Reading Time Taken Comments Blood Pressure 124/74 08/26/2024 8:44 AM EST Pulse 61 08/26/2024 8:44 AM EST Temperature - - Respiratory Rate - - Oxygen Saturation 94% 08/26/2024 8:44 AM EST Inhaled Oxygen Concentration - - Weight 129 kg (285 lb) 08/26/2024 8:44 AM EST Height 152.4 cm (5') 08/26/2024 8:44 AM EST Body Mass Index 55.66 08/26/2024 8:44 AM EST documented in this encounter Progress Notes * Omari Castelan MD - 08/26/2024 1:05 PM ESTAssociated Problem(s): Aortic stenosis Severe aortic stenosis with interval development of chronic shortness of breath. Her recent decompensation was in the context of COVID pneumonia and not directly related to her aortic valve stenosis. I cautioned that due to her morbid obesity alternative access may need to be considered although noted that femoral access for cardiac catheterization was uncomplicated. We will be able to have more information to make this decision following completion of her TAVR CT. We had a discussion of the natural history of aortic stenosis and the management options which include continued medical therapy, transcatheter aortic valve replacement, surgical aortic valve replacement or palliative care. We reviewed the risk and benefits of these approaches and decided to proceed with an evaluation for TAVR. Periprocedural risks with estimated likelihood include stroke at 2%, permanent pacemaker at 8 to 10%, major bleeding at 3%, vascular complication at 1 to 2%, and at 1 to 2%. The patient accepts these risks and would like to proceed. The evaluation process will includeevaluation by cardiothoracic surgery and a TAVR CTA. The studieswill be arranged in coordination with our office and the TAVR coordinators at the [facility] structural heart disease program. After all the studies have been completed the patient's care will be reviewed in a multidisciplinary meeting in the next steps will be determined. * Omari Castelan MD - 08/26/2024 9:00 AM EST Images from the original note were not included. [facility] PCP: Shantelle Ba MD HPI: Preeti Antoine is a 79 y.o. old female with a history of coronary artery disease, aortic stenosis, paroxysmal atrial fibrillation, obesity, chronic lower extremity lymphedema, hyperlipidemia, arterial hypertension, bronchial asthma, depression, anxiety, and osteoarthritis. Initially evaluated the patient back in August 2023. She had evidence of severe aortic stenosis although asymptomatic we opted to defer evaluation for valve replacement. More recently she has had chronic shortness of breath on minimal exertion and lower extremity edema. She had a hospitalization [facility] in July precipitated by COVID and COPD. Metoprolol was held due to Mobitz type I AV block.She currently is wearing the rhythm monitor. Most recent echocardiogram February 2024 documented normal ejection fraction, severe aortic stenosis with a mean gradient of 32 mmHg dimensionless index 0.26 calculated aortic valve area of around 0.8 cm??. ACTIVE MEDICATIONS: Outpatient Medications Marked as Taking for the 08/26/24 encounter (Consult) with Omari Castelan MD Medication Sig Dispense Refill albuterol sulfate (ProAir [...] ADULTS ORAL) 1 (one) time each day. mv-min/FA/vit K/lutein/zeaxant (PRESERVISION AREDS 2 PLUS MV ORAL) Take by mouth. omega-3 fatty acids (FISH OIL CONCENTRATE ORAL) [...] Morbid obesity (CMS/HCC) ALLERGIES: No Known Allergies FAMILY HISTORY: Family History Problem Relation Name Age of Onset Esophageal cancer Son SOCIAL HISTORY: Social History Tobacco Use Smoking status: Never Smokeless tobacco: Never Substance Use Topics Alcohol use: Not Currently PHYSICAL EXAM: Vitals: 08/26/24 0844 BP: 124/74 BP Location: Left arm Patient Position: Sitting BP Cuff Size: Adult Pulse: 61 SpO2: 94% Weight: 129 kg (285 lb) Height: 1.524 m (60 ) Physical Exam Constitutional: Appearance: She is obese. HENT: Mouth/Throat: Mouth: Mucous membranes are moist. Cardiovascular: Rate and Rhythm: Rhythm irregular. Heart sounds: Murmur heard. Pulmonary: Breath sounds: Normal breath sounds. Abdominal: Palpations: Abdomen is soft. Musculoskeletal: Right lower leg: Edema present. Left lower leg: Edema present. Skin: Capillary Refill: Capillary refill takes less than 2 seconds. Neurological: General: No focal deficit present. Mental Status: She is oriented to person, place, and time. ASSESSMENT/PLAN: Aortic stenosis Severe aortic stenosis with interval development of chronic shortness of breath. Her recent decompensation was in the context of COVID pneumonia and not directly related to her aortic valve stenosis. I cautioned that due to her morbid obesity alternative access may need to be considered although noted that femoral access for cardiac catheterization was uncomplicated. We will be able to have more information to make this decision following completion of her TAVR CT. We had a discussion of the natural history of aortic stenosis and the management options which include continued medical therapy, transcatheter aortic valve replacement, surgical aortic valve replacement or palliative care. We reviewed the risk and benefits of these approaches and decided to proceed with an evaluation for TAVR. Periprocedural risks with estimated likelihood include stroke at 2%, permanent pacemaker at 8 to 10%, major bleeding at 3%, vascular complication at 1 to 2%, and at 1 to 2%. The patient accepts these risks and would like to proceed. The evaluation process will includeevaluation by cardiothoracic surgery and a TAVR CTA. The studieswill be arranged in coordination with our office and the TAVR coordinators at the [facility] structural heart disease program. After all the studies have been completed the patient's care will be reviewed in a multidisciplinary meeting in the next steps will be determined. No orders of the defined types were placed in this encounter. documented in this encounter Plan of Treatment Upcoming Encounters Date Type Department Care Team (Late st Contact Info) Description 12/28/2024 1:30 PM EDT Office Visit [facility] [address] [facility] [address] [place] [address] Jose M Shane MD [address] [place] [address] [address] [place] [address] documented as of this encounter Visit Diagnoses Diagnosis Aortic valve stenosis, etiology of cardiac valve disease unspecified- Primary documented in this encounter Historical Medications * This list may reflect changes made after this encounter. Medication Sig Dispensed Refills Start Date End Date mv-min/FA/vit K/lutein/zeaxant (PRESERVISION AREDS 2 PLUS MV ORAL) Take by mouth. added in this encounter Care Teams Polishing Wheel Setter Relationship Specialty Start Date End Date Shantelle Ba MD [address] [place] [address] PCP - General 07/11/22 documented as of this encounter
--- OUTSIDE RECORDS SUMMARY | 2024-09-05 11:02 | XMS_ITS | Encounter Summary ---
Author Organization [facility] Address [address] [place] [address] Care Team Providers Care Inventory Assistant Name Role Phone Shantelle Ba MD Primary Care Provider [phone] Reason for Visit * Reason Comments 14 day ROCT * Cardiac Stress Testing (Routine) - Closed Specialty Diagnoses / Procedures Referred By Contac t Referred To Contact Cardiology Diagnoses Paroxysmal atrial fibrillation (CMS/HCC) Bradycardia Procedures Cardiac event monitor HI EXTERNAL PATIENT ACTIVATED ECG DOWNLOAD W RESULTS & INTERP <= 30 DAYS HI EXTERNAL PAT AUTO ACTIVATED ECG INCLUDING TRANSMISSION UP TO 30 DAYS HI EXTERNAL MOBILE CV TELEMETRY W ECG RECORDING <=30D PHYSCIAN REV & INTERP HI EXTERNAL MOBILE CV TELEMETRY W ECG RECORDING TECH SUPPORT UP TO 30 DAYS HI ECG UP TO 30 DAYS RECORDING Krystin Yang NP [address] [place] [address] [place] [address] Referral ID Status Reason Start Date Expiration Date Visits Re quested Visits Authorized [id number] Closed 08/09/2024 08/09/2025 1 1 Encounter Details Date Type Department Care Team (Latest Contact Info) Description 08/13/2024 9:00 AM EST Ancillary Procedure [facility] - [address] [place] [id number] Paroxysmal atrial fibrillation (CMS/HCC); Bradycardia Social History Tobacco Use Types Packs/Day Years [...] on file documented as of this encounter Plan of Treatment Upcoming Encounters Date Type Department Care Team (Late st Contact Info) Description 12/28/2024 1:30 PM EDT Office Visit [facility] [address] [place] [address] Jose M Shane MD [address] [place] [address] [address] [place] [address] Pending Results Name Type Priority Associated Diagnoses Date /Time Cardiac event monitor Cardiac Services Routine Paroxysmal atrial fibrillation (CMS/HCC) Bradycardia 08/15/2024 7:23 AM EST documented as of this encounter Visit Diagnoses Diagnosis Paroxysmal atrial fibrillation (CMS/HCC) Atrial fibrillation Bradycardia Other specified cardiac dysrhythmias documented in this encounter Care Teams Inventory Assistant Relationship Specialty Start Date End Date Shantelle Ba MD [address] [place] [address] PCP - General 07/11/22 documented as of this encounter
--- OUTSIDE RECORDS SUMMARY | 2024-09-05 11:02 | XMS_ITS | Encounter Summary ---
Author Organization [facility] Address [address] [place] [address] Care Team Providers Care Rehabilitation Services Director Name Role Phone Shantelle Ba MD Primary Care Provider [phone] Reason for Visit * Reason Onset Date Comments FCM 08/26/2024 Encounter Details Date Type Department Care Team (Late st Contact Info) Description 08/26/2024 Telephone [facility] - [facility] [address] [facility] [address] [place] [address] Majr Spencer, CELE[facility] Social History Tobacco Use Types Packs/Day Years [...] as of this encounter Progress Notes * Mac Martinez MA - 08/26/2024 9:24 AM EST Strips printed and waiting review * Marj Spencer RN - 08/26/2024 8:54 AM EST Patient has arrived for appt with Dr. Castelan this a.m Received call from [facility] stating sending stripsfor the following. AFIB with RVR at 8:15am lasting 3 minutes with hr 150, , 8:31am lasting 4 minutes and at 0032 hoursa 3.2 second pause. Scanned FCM into records (3) documented in this encounter Plan of Treatment Upcoming Encounters Date Type Department Care Team (Late st Contact Info) Description 12/28/2024 1:30 PM EDT Office Visit [facility] [address] [place] [address] [address] [place] [address] Jose M Shane MD [address] [place] [address] [address] [place] [address] documented as of this encounter Visit Diagnoses Not on filedocumented in this encounter Care Teams Rehabilitation Services Director Relationship Specialty Start Date End Date Shantelle Ba MD [address] [place] [address] PCP - General 07/11/22 documented as of this encounter
--- OUTSIDE RECORDS SUMMARY | 2024-09-05 11:02 | XMS_ITS | Encounter Summary ---
Author Organization [facility] Address [address] [place] [address] Care Team Providers Care Senior Controls Engineer Name Role Phone Shantelle Ba MD Primary Care Provider Reason for Visit * Reason Onset Date Comments ROCT - 67100 (Ok to Book) 08/10/2024 ROCT Enrollment 08/10/2024 Enrolling patien t for 14 day ROCT Encounter Details Date Type Department Care Team (Late st Contact Info) Description 08/10/2024 Telephone [facility] [address] [place] [address] Jose M Shane MD [address] [place] [address] [address] [place], [place] [phone] ROCT - 62407 (Ok to Book); ROCT Enrollment (Enrolling patient for 14 day ROCT) Social History Tobacco Use Types Packs/Day Years [...] as of this encounter Progress Notes * Kee Posadas MA - 08/10/2024 9:44 AM EST 08/10/24- Enrolling patient for 14 day ordered by NITHYA Collins// to read Dx: Bradycardia, PAF- onAC I called and spoke to patient, she is aware [facility] will reach out to her to schedule home delivery. * Kee Posadas MA - 08/10/2024 9:15 AM EST Patient is to be enrolled for 14 day ROCT ordered by Krystin Yang NP/ to read Dx: PAF- on AC, bradycardia * Lupe Baird - 08/10/2024 8:58 AM EST Prior Auth Status: NO Auth Req per [facility] Insurance Referral: N/A CPT: 39206 - ROCT DX: I48.0 Duration: 14 Days Perkins: Leila RAYMOND to BOOK documented in this encounter Plan of Treatment Upcoming Encounters Date Type Department Care Team (Late st Contact Info) Description 12/28/2024 1:30 PM EDT Office Visit [facility] Cardiology [facility] [address] [place] [address] [address] [place] [address] Jose M Shane MD [address] [place] [address] [address] [place] [address] documented as of this encounter Visit Diagnoses Not on filedocumented in this encounter Care Teams Senior Controls Engineer Relationship Specialty Start Date End Date Shantelle Ba MD [address] [place] [address] PCP - General 07/11/22 documented as of this encounter
--- OUTSIDE RECORDS SUMMARY | 2024-09-05 11:03 | XMS_ITS | Clinical Summary ---
Author Organization [facility] [employer] [facility] Address [address] [place] [address] Phone Care Team Providers Care Customs Director Name Role Phone Shantelle Ba MD Primary Care Provider [phone] Allergies No known active allergies Medications Medication Sig Dispensed Refills Start Date End Date Status apixaban (Eliquis) 5 mg tablet TAKE 1 TABLET BY MOUTH TWICE DAILY 180 tablet 1 07/28/2024 Active albuterol sulfate (ProAir RespiClick) 90 mcg/actuation aerosol powdr breath activated Inhale 1 puff by mouth 1 (one) time each day. 01/31/2015 Active aspirin 81 mg EC tablet Take 1 tablet (81 mg total) by mouth 1 (one) time each day. Active furosemide (LASIX) 20 mg tablet Take 1 tablet (20 mg total) by mouth 1 (one) time each day. 02/23/2020 Active isosorbide mononitrate (IMDUR) 30 mg 24 hr tablet Take 1 tablet (30 mg total) by mouth 1 (one) time each day. 11/05/2022 Active rosuvastatin (CRESTOR) 20 mg tablet Take 1 tablet (20 mg total) by mouth 1 (one) time each day. Active Symbicort 160-4.5 mcg/actuation inhaler Inhale 1 puff by mouth every 12 (twelve) hours. Active multivit-minerals/ folic acid (CENTRUM ADULTS ORAL) 1 (one) time each day. Active omega-3 fatty acids (FISH OIL CONCENTRATE ORAL) Take 1 tablet by mouth 1 (one) time each day. 11/01/2014 Active cholecalciferol (VITAMIN D-3) 25 mcg (1,000 unit) capsule Take by mouth 1 (one) time each day. Active vit A/vit C/vit E/zinc/copper (ICAPS AREDS ORAL) Take 1 tablet by mouth 2 (two) times a day. Active mv-min/FA/vit K/lutein/zeaxant (PRESERVISION AREDS 2 PLUS MV ORAL) Take by mouth. Active metoprolol succinate (TOPROL-XL) 100 mg 24 hr tablet Take 1 tablet (100 mg total) by mouth 1 (one) time each day. 02/18/2024 08/09/2024 Discontinued( Discontinued by another clinician) Active Problems Problem Noted Date Diagnosed Date CAD (coronary artery disease) 10/23/2022 Overview (08/08/2024): Last Assessment & Plan: Patient has a history of coronary artery disease. Left heart catheterization November 2022 showed mild nonobstructive coronary artery disease. She continues on medical therapy with rosuvastatin, isosorbide mononitrate, aspirin and metoprolol. Aortic stenosis 04/17/2021 Overview (08/08/2024): Last Assessment & Plan: The patient has history of aortic valve stenosis. In the past, the patient underwent a left heart catheterization November 2022 which showed evidence of severe aortic valve stenosis, however it was recommended given she was not reporting symptoms consistent with heart failure, to continue surveillance echocardiograms and clinical assessment prior to proceeding with evaluation of aortic valve replacement. She has been seen by Dr. Castelan who recommended repeat echocardiogram which was completed February 2024. This showed severe aortic stenosis and the gradients had increased. She continues to deny any changes in her baseline shortness of breath or lower extremity edema which has been chronic for years. She denies any hospitalizations for congestive heart failure. At this point, recommend she be reevaluated by Dr. Castelan regarding the possibility of aortic valve replacement. I reviewed the pathophysiology of aortic stenosis which is that it will continue to worsen until it becomes severe. I reviewed symptoms to look out for including worsening shortness of breath, increasing exertional fatigue, exertional chest pain, lightheadedness, syncope. I reviewed that there is no medical therapy to delay progression of this disease and that the only treatment shown to improve outcomes is aortic valve replacement. I reviewed that there are currently 2 methods of replacement that are options including surgical replacement versus TAVR. I reviewed that the indications for replacement are severe, symptomatic aortic stenosis. Assessment & Plan (08/26/2024 1:05 PM EST): Severe aortic stenosis with interval development of [...] cardiothoracic surgery and a TAVR CTA. The studies will be arranged in coordination with our office and the TAVR coordinators at the [facility] structural heart disease program. After all the studies have been completed the patient's care will be reviewed in a multidisciplinary meeting in the next steps will be determined. Assessment & Plan (08/09/2024 4:01 PM EST): The patient has a history of severe aortic valve stenosis. In the past, the patient underwent evaluation with a left heart catheterization November 2022 which showed evidence of severe aortic stenosis, however she was seen in consultation with Dr. Castelan in August 2023 with recommendations for watchful waiting with surveillance echocardiograms and clinical assessment every 6 months prior to proceeding with evaluation of aortic valve replacement. At her last office visit in April, it was recommended she be reevaluated by Dr. Castelan regarding the possibility of aortic valve replacement. Unfortunately, the patient did not have a follow-up appointment scheduled. Given her recent hospitalization, recommend she be reevaluated by Dr. Castelan regarding the possibility of the aortic valve replacement. She has an appointment scheduled for August 26. I reviewed the pathophysiology of aortic stenosis which is that it will continue to worsen until it becomes severe. I reviewed symptoms to look out for including worsening shortness of breath, increasing exertional fatigue, exertional chest pain, lightheadedness, syncope. I reviewed that there is no medical therapy to delay progression of this disease and that the only treatment shown to improve outcomes is aortic valve replacement. I reviewed that there are currently 2 methods of replacement that are options including surgical replacement versus TAVR. I reviewed that the indications for replacement are severe, symptomatic aortic stenosis. Atrial fibrillation 04/17/2021 Overview (08/08/2024): Last Assessment & Plan: Patient has history of paroxysmal atrial fibrillation continues on rate control therapy with beta-naty. Her heart rate is adequate today she continues on anticoagulation with Eliquis 5 mg orally twice daily based on her age, weight, and kidney function. She has a [id number] score of 5. Will continue current therapies. Assessment & Plan (08/09/2024 4:01 PM EST): Patient has a history of paroxysmal atrial fibrillation. Metoprolol on hold as outlined below given bradycardia. She continues on Eliquis 5 mg orally twice daily. Orders: Cardiac event monitor; Future Hyperlipidemia 04/17/2021 Overview (08/08/2024): Last Assessment & Plan: Patient has history of hyperlipidemia. Last LDL cholesterol at goal at 63. She continues on rosuvastatin as prescribed. Hypertension 04/17/2021 Overview (08/08/2024): Last Assessment & Plan: Patient's blood pressure is well-controlled today. She will continue her current antihypertensive medication regimen as prescribed. Morbid obesity 04/17/2021 Encounters Date Type Department Care Team Description 08/29/2024 Telephone [facility] Cardiology [facility] [address] [facility] [address] [place] [address] Shantelle Ba MD Medical Records 08/26/2024 9:00 AM EST Consult [facility] [address] [facility] [address] [place] [address] Omari Castelan MD Aortic valve stenosis, etiology of cardiac valve disease unspecified (Primary Dx) 08/26/2024 Telephone [facility] [address] [place] [address] Marj Spencer RN FCM 08/13/2024 9:00 AM EST Ancillary Procedure [facility] [address] [place] [address] Paroxysmal atrial fibrillation (CMS/HCC); Bradycardia 08/10/2024 Telephone [facility] [address] [place] [address] Jose M Shane MD ROCT - 22065 (Ok to Book); ROCT Enrollment (Enrolling patient for 14 day ROCT) 08/09/2024 3:10 PM EST Office Visit [facility] [address] [place] [address] Krystin Ynag NP Paroxysmal atrial fibrillation (CMS/HCC) (Primary Dx); Bradycardia; Aortic valve stenosis, etiology of cardiac valve disease unspecified 08/05/20[address] [facility] [address] [place] [address] Jose M Shane MD heart rate (Heart rate ) 08/02/2024 Telephone [facility] [address] [place] [phone] Jose M Shane MD OTHER (Medical questions from Dr Adrián Beltran) from Last 3 Months Surgical History Surgery Date Site/Laterality Comments TUBAL LIGATION PROCEDURE: HISTORICAL TUBAL LIGATION COLONOSCOPY PROCEDURE: HISTORICAL COLONOSCOPY Medical History Medical History Date Comments CKD (chronic kidney disease) DX: CKD (chronic kidney disease) Diverticulitis DX:Diverticuliti s Mild intermittent asthma DX:Mild intermittent asthma Osteoarthritis DX:Osteoarthriti s Stress incontinence DX:Stress in continence Family History Medical History Relation Name Comments Esophageal cancer Son Relation Name Status Comments Son Social History Tobacco Use Types Packs/Day Years [...] file Not on file Not on file Obstetrics History Last Filed Vital Signs Vital Sign Reading [...] Mass Index 55.66 08/26/2024 8:44 AM EST Plan of Treatment Upcoming Encounters Date Type Department Care Team (Late st Contact Info) Description 12/28/2024 1:30 PM EDT Office Visit [facility] [address] [place] [address] Leila-Jose M Salas MD [address] [place] [address] [address] [place] [address] Health Maintenance Due Date Last Done Comments DTaP,Tdap,and Td Vaccines (1 - Tdap) 1964 Cholesterol Screening (Lipid Panel) 07/13/2022 Depression Screening 07/13/2022 Falls Risk Assessment 07/13/2022 Medicare Annual Wellness Visit 07/13/2022 Osteoporosis Screening (Bone Density Screening) 07/13/2022 Social Influencers of Health Screening 07/13/2022 Hypertension/CHF/CAD Annual BMP Blood Test 07/17/2022 Zoster Vaccines (2 of 2) 07/22/2024 05/27/2024 Pneumococcal Vaccine: 65+ Years Completed 06/12/2022, 04/21/2019 COVID-19 Vaccine Completed 04/25/2024, , 12/02/2021, Additional history exists Influenza Vaccine Completed 04/25/2024, , 04/28/2022, Additional history exists RSV Immunization Patients 60+ Years Old Completed 04/25/2024 HIB Vaccines Aged Out No longer eligi ble based on patient's age to complete this topic HPV Vaccines Aged Out No longer eligi ble based on patient's age to complete this topic Hepatitis A Vaccines Aged Out No long er eligible based on patient's age to complete this topic Hepatitis B Vaccines Aged Out No long er eligible based on patient's age to complete this topic IPV Vaccines Aged Out No longer eligi ble based on patient's age to complete this topic MMR Vaccines Aged Out No longer eligi ble based on patient's age to complete this topic Meningococcal ACWY Vaccine Aged Out N o longer eligible based on patient's age to complete this topic RSV Immunization Patients Under 20 months Aged Out No longer eligible based on patient's age to complete this topic Varicella Vaccines Aged Out No longer eligible based on patient's age to complete this topic Care Teams Customs Director Relationship Specialty Start Date End Date Shantelle Ba MD [address] [place] [address] PCP - General 07/11/22
--- NOTE | 2024-09-05 11:24 | A.OFFPC_ITS ---
Vital Signs 09/05/24 11:25 Height 5 ft Weight 284 lb BMI 55.5 BP 100/70 Blood Pressure Location Lt radial Position Sitting Respiration 18 Pulse 91 Pulse Source Pulse Oximeter Temp 98.0 F Temp Source Oral Pulse Oximetry (%) 98 Oxygen Delivery Method Room Air Intake Visit Reasons: HDF ~ Post hospital discharge FU Intake Note: Pt is here today for her HDF C Accompanied by: Daughter (Latricia) Allergies No Known Allergies Allergy (Verified 09/11/24 22:55) Medication List - Last Reconciled 09/11/24 by Shantelle Ba MD albuterol sulfate 90 mcg/actuation 1 inh inhalation Q6H PRN apixaban (Eliquis) 5 mg PO BID aspirin 81 mg PO DAILY cholecalciferol (vitamin D3) 25 mcg PO DAILY furosemide 20 mg PO DAILY PRN isosorbide mononitrate ER 30 mg PO DAILY guaiqenj-fqepbre-ljvn-lutein 1 tab PO DAILY omega 7-nbb-xof-fish oil 1,000 (120-180) mg (Fish Oil) 1 cap PO DAILY rosuvastatin 20 mg PO BEDTIME Symbicort 160-4.5 mcg/actuation (budesonide-formoterol) 1 puff PO Q12H 1 month NS vit C,E-Nd-qxuba-lutein-zeaxan 250-90-40-1 mg (PreserVision AREDS-2) 1 tab PO BID Tobacco use date assessed: 09/05/24 Fall risk assessment: No Falls in past year Last assessed Fall Risk: 09/05/24 Dental Screening Dental Screen Date: 09/05/24 Did you have a dental visit in the last 12 months?: Yes Did you have a dental problem in the last 6 months where you did not have access to dental care?: Yes Was dental information given to patient?: Patient has dentist HPI HDF ~ Post hospital discharge FU HPI Details 79-year-old female with past medical hi story significant for lymphedema , atrial fibrillation on anticoagulation, CKD, mild intermittent asthma, osteoarthritis, dyslipidemia, hypertension , hx of Covid in 07/2024, here today for a follow up . She was diagnosed to have severe aortic stenosis in 2023 but opted to defer treatment at that time. However she had a six-month history of progressive shortness of breath and and easy fatigability especially on exertion. She has a [place] heart Association class 3 symptoms of heart failure. Her workup which included echocardiogram and cardiac catheterization, demonstrates the presence of severe aortic valve stenosis. Based upon recomm endation by Cardiology, they proposed doing a transcatheter aortic valve replacement to reduce her periprocedural risk of morbidity and mortality, and patient is in agreement with this plan, and wishes to proceed. [facility] Medical History (Updated 09/11/24 @ 23:07 by Shantelle Ba MD) Aortic stenosis, moderate Mild intermittent asthma Paroxysmal atrial fibrillation Aortic stenosis AV block Obesity Obesity Hypertension Dyslipidemia History of atrial fibrillation Wheezing Elevated brain natriuretic peptide (BNP) level Lymphedema Lymphedema of both lower extremities Stress incontinence Chronic kidney disease Diverticulitis Atrial fibrillation Osteoarthritis Dyslipidemia Essential hypertension Surgical History Hx of colonoscopy History of tubal ligation Family History Son Esophageal cancer Social History Household Members: None Housing: Apartment Do you presently have visiting nurse or other home services: No Alcohol intake: current Alcohol intake frequency: holidays/special occasions only Comment: low fall supervise with walker Patient Tobacco Use Status: Former Tobacco user Tobacco use type: Cigarette Years Smoked: 40 yrs e-Cigarette/Vaping Use: Never Used Second Hand Smoke Exposure: No service: No 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 1. Little interest or pleasure in doing things: not at all 2. Feeling down, depressed, or hopeless: not at all 3. Trouble falling or staying asleep, or sleeping too much: not at all 4. Feeling tired or having little energy: nearly every day 5. Poor appetite or overeating: nearly every day 6. Feeling bad about yourself - or that you are a failure or have let yourself or your family down: not at all 7. Trouble concentrating on things, such as reading the newspaper or watching television: not at all 8. Moving or speaking so slowly that other people could have noticed. Or the opposite - being so fidgety or restless that you have been moving around a lot more than usual: not at all 9. Thoughts that you would be better off or of hurting yourself in some way: not at all Total score: 6 Depression Screening Interpretation: Negative Depression Screening Done: Yes 03642 - PHQ-9 Billing: Yes Source: Developed by Drs. Ney Mcwilliams, Saloni Spencer, Jorge Petty and colleagues, with an educational lisa from [employer]. Thrive Questionnaire Date Thrive assessed: 07/31/24 I am a: Patient What is your living situation today?: I have a steady place to live Within the past 12 months, did the food you bought not last and you didn't have the money to get more?: Never true Within the past 12 months, did you worry whether your food would run out before you got money to buy more?: Never true Do you have trouble paying for medicines?: No Do you have trouble getting transportation to medical appointments?: No Do you have trouble paying your heating and electricity bill?: No Do you have trouble taking care of your child, family member or friend?: No Do you have trouble with day-to-day activities such as bathing, preparing meals, shopping, managing finances, etc.?: Yes Are you currently unemployed and looking for a job?: No Are you interested in more education?: No Please select the resources that you would like help with: None Currently or been in a relationship where the following occur: No concerns reported THRIVE Score: 0 AUDIT C Alcohol Use Questionnaire (AUDIT-C) 1. How often do you have a drink containing alcohol?: Never Total Score: 0 JIE-7 AMB Questionnaire JIE-7 Date JIE - 7 assessed: 12/31/23 Feeling nervous, anxious, or on edge: 0 = Not at all Not being able to stop or control worryin = Not at all Worrying too much about different things: 0 = Not at all Trouble relaxin = Not at all Being so restless that it is hard to sit still: 0 = Not at all Becoming easily annoyed or irritable: 0 = Not at all Feeling afraid as if something awful might happen: 0 = Not at all Total JIE-7 score (0-4 normal; 5-9 mild; 10-14 moderate; 15-21 severe): 0 Source: Developed by Drs. Ney Mcwilliams, Saloni Spencer, Jorge Petty and colleagues, with an educational lisa from [employer]. Review of Systems Const Denies fever(s), Denies frequent falls, Denies lethargy and Denies malaise Eyes Denies change in vision ENT Reports no additional complaints Card Denies chest pain, Reports irregular heart rhythm and Denies lightheadedness Resp Reports as per HPI GI Denies abdominal pain, Denies melena, Denies change in bowel habits and Denies heartburn Denies hematuria, Reports urinary incontinence and Denies vaginal discharge Musc Reports arthralgias (Both knees) and Reports stiffness Skin/Breast Denies breast pain, Denies breast mass and Denies rash Neuro Denies frequent falls Psych Reports no additional complaints Endo Reports no additional complaints Lázaro/Lymph Denies easy bleeding and Denies easy bruising Aller/Immun Reports no additional complaints Physical exam (Primary Care) Vital Signs: Last Vital Signs Temp 98.0 F 09/05/24 11:25 Pulse 91 09/05/24 11:25 Resp 18 09/05/24 11:25 BP 100/70 09/05/24 11:25 Pulse Ox 98 09/05/24 11:25 Oxygen Delivery Method Room Air 09/05/24 11:25 BMI result Body Mass Index 55.5 Tobacco/Smoking Status: Tobacco use Status Tobacco use date assessed 09/05/24 09/05/24 11:32 Patient Tobacco Use Status Former Tobacco user 09/05/24 11:26 Tobacco use type Cigarette 09/05/24 11:26 e-Cigarette/Vaping Use Never Used 09/05/24 11:26 PHQ-9: PHQ-9 Score PHQ-9: Total score 6 09/11/24 23:09 Depression Screening Interpretation: Negative Thrive Assessment: Date of Thrive Assessment Date Thrive assessed 07/31/24 09/05/24 11:26 Currently or been in a relationship where the following occur: No concerns reported Const Other: Morbidly obese, alert, oriented x3, ambulatory with assistance of a cane, daughter present during visit Orientation/consciousness: patient oriented x3 HENMT Head: Yes normocephalic General nose exam: Normal external nose present Face and sinus: Yes face symmetric Mouth: Normal oral and palatal mucosa present and moist mucous membranes Eyes General: appearance normal, both eyes and all related structures Neck Neck: Yes full ROM, Yes no lymphadenopathy, Yes no meningeal signs and Yes supple Resp Effort & Inspection: normal respiratory effort and able to speak in complete sentences Auscultation: clear to auscultation bilaterally Cardio Other: irregularly irregular rhythm GI Other: Morbidly obese, normal bowel sounds soft,, Inspection: Yes Abdominal panniculus present Palpation (GI): Soft to palpation, nontender, no guarding and no masses Auscultation: normal bowel sounds General: Yes no CVA tenderness Back/Spine/Pelvis Back: no CVA tenderness and No back tenderness Skin General skin exam: no rashes or lesions noted Neuro General: patient oriented x3, moves all extremities, Normal light touch and pain sensation, no meningeal signs and no focal motor deficits Extrem Other: Trace pedal edema bilaterally Psych Appearance: grossly normal Mental Status: mental status grossly normal Speech and movement: Normal speech and movement present Affect: normal affect Attitude: cooperative Thought process: Normal thought process present Coding Level of Care Code Est Pt Level 4 (85547) Complex EM visit Add On G2211 Diagnoses Mild intermittent asthma without complication J45.20 Asthma complication type: uncomplicated Atrial fibrillation I48.91 Aortic stenosis, moderate I35.0 Dyslipidemia E78.5 Essential hypertension I10 Chronic kidney disease N18.9 Additional Codes PHQ-9 - 89029 - PHQ-9 Billing: Yes ([id number]) Assessment & Plan Assessment & Plan (1) Mild intermittent asthma: Code(s): J45.20 - Mild intermittent asthma, uncomplicated Category: Medical Qualifiers: Asthma complication type: uncomplicated Qualified Code(s): J45.20 - Mild intermittent asthma, uncomplicated Plan: Has albuterol inhaler to use as needed for episodes of bronchospasm. Currently on Symbicort 160-4.5 mcg per actuation, 1 inhalation twice a day, advised patient again to rinse mouth after each use (2) Atrial fibrillation: Comment: sees Dr Dee , [facility] Cardiology Code(s): I48.91 - Unspecified atrial fibrillation Category: Medical Plan: Followed by cardiology currently on apixaban 5 mg twice a day (3) Aortic stenosis, moderate: Code(s): I35.0 - Nonrheumatic aortic (valve) stenosis Category: Medical Plan: Patient scheduled to have a transcatheter aortic valve replacement to reduce periprocedural risk, to be done at [facility] (4) Dyslipidemia: Code(s): E78.5 - Hyperlipidemia, unspecified Category: Medical Plan: Continue with rosuvastatin 20 mg daily (5) Essential hypertension: Code(s): I10 - Essential (primary) hypertension Category: Medical Plan: Blood pressure at goal of less than 130/80. Continue with current medication. Reinforced importance of following a low sodium diet, getting regular exercise, and lowering stress levels. (6) Chronic kidney disease: Code(s): N18.9 - Chronic kidney disease, unspecified Category: Medical Plan: Avoidance of NSAIDs, and importance of getting blood pressure, lipid levels and glucose levels under good control to prevent further progression of kidney disease. Medications: Changed From budesonide-formoterol 160-4.5 mcg/actuation 1 puff PO Q12H 10.2 grams 1RF J45.20 - Mild intermittent asthma, uncomplicated To Symbicort 160-4.5 mcg/actuation (budesonide-formoterol) 1 puff PO Q12H 10.2 grams 1RF 1 month NS J45.20 - Mild intermittent asthma, uncomplicated
[2024-09-05 11:25] VITALS: BP 100/70; PULSE 91; RESP 18; TEMP 36.7; O2SAT 98; BMI 55.5
== END 2024-09-05 12:03 | disposition home or self-care (01) ==
PROVIDERS: PCP Internal Medicine; Visit Provider Internal Medicine
DX: J45.20 Mild intermittent asthma, uncomplicated (principal); I48.91 Unspecified atrial fibrillation; I35.0 Nonrheumatic aortic (valve) stenosis; E78.5 Hyperlipidemia, unspecified; I12.9 Hypertensive chronic kidney disease with stage 1 through stage 4 chronic kidney disease, or unspecified chronic kidney disease; N18.9 Chronic kidney disease, unspecified

== ENCOUNTER → 2024-09-05 10:18 | Outpatient (BNVA) | payer MEDICARE, SELFPAY | PROVIDERS: PCP Internal Medicine; Visit Provider Internal Medicine | DX: J45.20 Mild intermittent asthma, uncomplicated (principal); I48.91 Unspecified atrial fibrillation; I35.0 Nonrheumatic aortic (valve) stenosis; E78.5 Hyperlipidemia, unspecified; I12.9 Hypertensive chronic kidney disease with stage 1 through stage 4 chronic kidney disease, or unspecified chronic kidney disease; N18.9 Chronic kidney disease, unspecified | CPT/HCPCS: 96127; 99212 ==

== ENCOUNTER 2024-11-07 12:23 | Outpatient (AMB) | payer MEDICARE, SELFPAY ==
--- NOTE | 2024-11-07 12:46 | MHC.PC.OV ---
Vital Signs 11/07/24 12:48 Height 5 ft Weight 276 lb BMI 53.9 BP 118/80 Blood Pressure Location Rt radial Position Sitting Respiration 17 Pulse 97 Pulse Source Pulse Oximeter Temp 98.3 F Temp Source Oral Pulse Oximetry (%) 97 Oxygen Delivery Method Room Air Intake Visit Reasons: [facility] Intake Note: [place] today [place] [facility] [place] No Known Allergies Allergy (Verified 11/07/24 13:28) Medication List - Last Reconciled 11/07/24 by Shantelle Ba MD albuterol sulfate 90 mcg/actuation 1 inh inhalation Q6H PRN apixaban (Eliquis) 5 mg PO BID aspirin 81 mg PO DAILY cholecalciferol (vitamin D3) 25 mcg PO DAILY furosemide 20 mg PO DAILY PRN isosorbide mononitrate ER 30 mg PO DAILY tsfbmmwz-ddztran-jsak-lutein 1 tab PO DAILY omega 5-kuq-bxp-fish oil 1,000 (120-180) mg (Fish Oil) 1 cap PO DAILY rosuvastatin 20 mg PO BEDTIME Symbicort 160-4.5 mcg/actuation (budesonide-formoterol) 1 puff PO Q12H 1 month NS vit C,M-Eo-axqgb-lutein-zeaxan 250-90-40-1 mg (PreserVision AREDS-2) 1 tab PO BID Tobacco use date assessed: 11/07/24 Fall risk assessment: No Falls in past year Last assessed Fall Risk: 11/07/24 Dental Screening Dental Screen Date: 11/07/24 Did you have a dental visit in the last 12 months?: Yes Did you have a dental problem in the last 6 months where you did not have access to dental care?: Yes Was dental information given to patient?: Patient has dentist HPI [facility] HPI Details 79-year-old female history of coronary artery disease, moderate aortic stenosis, atrial fibrillation on Eliquis, sick sinus syndrome and Mobitz 1 heart block status post implantation of dual-chamber Medtronic left bundle pacemaker on 10/27/2024 Dr. Romreo, here today for hospital discharge follow-up. After procedure she developed hypotension requiring transient norepinephrine, which was felt to be a combination of sedation that she received during her procedure and known underlying severe aortic stenosis. Stat echocardiogram done at bedside which showed a small pericardial effusion however no cardiac tamponade seen. Patient was then admitted at [facility]U,where she was stabilized, with eventual weaning off of norepinephrine. Continues to be in atrial fibrillation with rates in the 80s, remained hemodynamically stable, and discharged home on previous medications. She developed superficial thrombophlebitis of the cephalic vein with no evidence of DVT in the right upper extremity after pacemaker was placed. Discharge meds consist of Lasix to be taken every day and continued on her other home medications. She has an appointment for follow-up with [facility] on November 14 at 13:00 and schedule a cardiology follow-up appointment outpatient. Blood pressure today is now within normal limits at 118/80, with a pulse of 90 7 and O2 sat at 97%. [facility] Medical History (Updated 11/14/24 @ 02:13 by Shantelle Ba MD) Anemia Aortic stenosis, moderate Mild intermittent asthma Paroxysmal atrial fibrillation Aortic stenosis AV block Obesity Obesity Hypertension Dyslipidemia History of atrial fibrillation Wheezing Elevated brain natriuretic peptide (BNP) level Lymphedema Lymphedema of both lower extremities Stress incontinence Chronic kidney disease Diverticulitis Atrial fibrillation Osteoarthritis Dyslipidemia Essential hypertension Surgical History Hx of colonoscopy History of tubal ligation Family History Son Esophageal cancer Social History Household Members: None Housing: Apartment Do you presently have visiting nurse or other home services: No Alcohol intake: current Alcohol intake frequency: holidays/special occasions only Comment: low fall supervise with walker Patient Tobacco Use Status: Former Tobacco user Tobacco use type: Cigarette Years Smoked: 40 yrs e-Cigarette/Vaping Use: Never Used Second Hand Smoke Exposure: No service: No 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 1. Little interest or pleasure in doing things: not at all 2. Feeling down, depressed, or hopeless: not at all 3. Trouble falling or staying asleep, or sleeping too much: not at all 4. Feeling tired or having little energy: not at all 5. Poor appetite or overeating: not at all 6. Feeling bad about yourself - or that you are a failure or have let yourself or your family down: not at all 7. Trouble concentrating on things, such as reading the newspaper or watching television: not at all 8. Moving or speaking so slowly that other people could have noticed. Or the opposite - being so fidgety or restless that you have been moving around a lot more than usual: not at all 9. Thoughts that you would be better off or of hurting yourself in some way: not at all Total score: 0 Depression Screening Interpretation: Negative Depression Screening Done: Yes 60898 - PHQ-9 Billing: Yes Source: Developed by Drs. Ney Mcwilliams, Saloni Spencer, Jorge Petty and colleagues, with an educational lisa from [employer]. Thrive Questionnaire Date Thrive assessed: 11/07/24 I am a: Patient What is your living situation today?: I have a steady place to live Within the past 12 months, did the food you bought not last and you didn't have the money to get more?: Never true Within the past 12 months, did you worry whether your food would run out before you got money to buy more?: Never true Do you have trouble paying for medicines?: No Do you have trouble getting transportation to medical appointments?: No Do you have trouble paying your heating and electricity bill?: No Do you have trouble taking care of your child, family member or friend?: No Do you have trouble with day-to-day activities such as bathing, preparing meals, shopping, managing finances, etc.?: Yes Are you currently unemployed and looking for a job?: No Are you interested in more education?: No Please select the resources that you would like help with: None Currently or been in a relationship where the following occur: No concerns reported THRIVE Score: 0 AUDIT C Alcohol Use Questionnaire (AUDIT-C) 1. How often do you have a drink containing alcohol?: Never Total Score: 0 JIE-7 AMB Questionnaire JIE-7 Date JIE - 7 assessed: 11/07/24 Feeling nervous, anxious, or on edge: 0 = Not at all Not being able to stop or control worryin = Not at all Worrying too much about different things: 0 = Not at all Trouble relaxin = Not at all Being so restless that it is hard to sit still: 0 = Not at all Becoming easily annoyed or irritable: 0 = Not at all Feeling afraid as if something awful might happen: 0 = Not at all Total JIE-7 score (0-4 normal; 5-9 mild; 10-14 moderate; 15-21 severe): 0 Source: Developed by Drs. Ney Mcwilliams, Saloni Spencer, Jorge Petty and colleagues, with an educational lisa from [employer]. Review of Systems Const Denies fever(s), Denies frequent falls, Denies lethargy and Denies malaise Eyes Denies change in vision ENT Reports no additional complaints Card Denies chest pain, Reports irregular heart rhythm and Denies lightheadedness Resp Reports as per HPI GI Denies abdominal pain, Denies melena, Denies change in bowel habits and Denies heartburn Denies hematuria, Reports urinary incontinence and Denies vaginal discharge Musc Reports arthralgias (Both knees) and Reports stiffness Skin/Breast Denies breast pain, Denies breast mass and Denies rash Neuro Denies frequent falls Psych Reports no additional complaints Endo Reports no additional complaints Lázaro/Lymph Denies easy bleeding and Denies easy bruising Aller/Immun Reports no additional complaints Physical exam (Primary Care) Vital Signs: Last Vital Signs Temp 98.3 F 11/07/24 12:48 Pulse 97 11/07/24 12:48 Resp 17 11/07/24 12:48 BP 118/80 11/07/24 12:48 Pulse Ox 97 11/07/24 12:48 Oxygen Delivery Method Room Air 11/07/24 12:48 BMI result Body Mass Index 53.9 Tobacco/Smoking Status: Tobacco use Status Tobacco use date assessed 11/07/24 11/07/24 12:54 Patient Tobacco Use Status Former Tobacco user 11/07/24 12:47 Tobacco use type Cigarette 11/07/24 12:47 e-Cigarette/Vaping Use Never Used 11/07/24 12:47 PHQ-9: PHQ-9 Score PHQ-9: Total score 0 11/14/24 02:11 Depression Screening Interpretation: Negative Thrive Assessment: Date of Thrive Assessment Date Thrive assessed 11/07/24 11/07/24 12:55 Currently or been in a relationship where the following occur: No concerns reported Const Other: Morbidly obese, alert, oriented x3, ambulatory with assistance of a cane, daughter present during visit Orientation/consciousness: patient oriented x3 [facility] Head: Yes normocephalic General nose exam: Normal external nose present Face and sinus: Yes face symmetric Mouth: Normal oral and palatal mucosa present and moist mucous membranes Eyes General: appearance normal, both eyes and all related structures Neck Neck: Yes full ROM, Yes no lymphadenopathy, Yes no meningeal signs and Yes supple Resp Effort & Inspection: normal respiratory effort and able to speak in complete sentences Auscultation: clear to auscultation bilaterally Cardio Other: irregularly irregular rhythm GI Other: Morbidly obese, normal bowel sounds soft,, Inspection: Yes Abdominal panniculus present Palpation (GI): Soft to palpation, nontender, no guarding and no masses Auscultation: normal bowel sounds General: Yes no CVA tenderness Back/Spine/Pelvis Back: no CVA tenderness and No back tenderness Skin General skin exam: no rashes or lesions noted Neuro General: patient oriented x3, moves all extremities, Normal light touch and pain sensation, no meningeal signs and no focal motor deficits Extrem Other: Trace pedal edema bilaterally Psych Appearance: grossly normal Mental Status: mental status grossly normal Speech and movement: Normal speech and movement present Affect: normal affect Attitude: cooperative Thought process: Normal thought process present Coding Level of Care Code Est Pt Level 4 (62778) Complex EM visit Add On G2211 Diagnoses Mild intermittent asthma without complication J45.20 Asthma complication type: uncomplicated Current use of anticoagulant therapy Z79.01 Chronic kidney disease N18.9 Chronic kidney disease stage: stage 3 (moderate) Atrial fibrillation I48.91 Anemia, unspecified type D64.9 Anemia type: unspecified type Additional Codes PHQ-9 - 52413 - PHQ-9 Billing: Yes ([id number]) Time Spent (min) 40 Comment Assessment & Plan Assessment & Plan (1) Mild intermittent asthma: Code(s): J45.20 - Mild intermittent asthma, uncomplicated Category: Medical Qualifiers: Asthma complication type: uncomplicated Qualified Code(s): J45.20 - Mild intermittent asthma, uncomplicated Plan: Continue on Symbicort at the same dose and has a rescue inhaler to use as needed for episodes of bronchospasm and wheezing. (2) Current use of anticoagulant therapy: Code(s): Z79.01 - terminologist (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 Category: Medical Plan: Currently on apixaban 5 mg 1 tablet twice a day with no bleeding abnormality seen (3) Chronic kidney disease: Code(s): N18.9 - Chronic kidney disease, unspecified Category: Medical Qualifiers: Chronic kidney disease stage: stage 3 (moderate) Plan: Avoidance of NSAIDs, stressed importance of getting blood pressure, diabetes and lipids well controlled. (4) Atrial fibrillation: Comment: sees Dr Dee , [facility] Code(s): I48.91 - Unspecified atrial fibrillation Category: Medical Plan: Followed by [facility], currently on apixaban 5 mg 1 tablet twice a day (5) Anemia: Code(s): D64.9 - Anemia, unspecified Category: Medical Qualifiers: Anemia type: unspecified type Qualified Code(s): D64.9 - Anemia, unspecified Plan: Likely due to chronic kidney disease. Patient currently asymptomatic, will continue to monitor
[2024-11-07 12:48] VITALS: BP 118/80; PULSE 97; RESP 17; TEMP 36.8; O2SAT 97; BMI 53.9
--- OUTSIDE RECORDS SUMMARY | 2024-11-07 14:42 | XMS_ITS ---
Author Organization [facility] Address [address] [place] [id number] Care Team Providers Care Agricultural Science Professor Name Role Phone Mejia JOHNSON, Shantelle Bee Primary Care Provider Un available Franki Gupta Unavailable [phone] Encounters Encounter Location Date Provider Diagnosis [address] [address] 11/01/2024 Franki Gupta Plan Of Treatment Next Appt Details Provider Name:Franki Gupta , 01/31/2025 11:15:00 AM, [address] [place] [address], [phone], Progress Notes * Preeti ANTOINEDOB:1945 (79 yo F)Acc No.[id number]:11/01/2024 Progress Note Patient:?Preeti ANTOINE Provider:?Franki Gupta DPM :1945???Age:79 Y???Sex:Female D ate:11/01/2024 Address:[address] [place], [place] [id number] Pcp:Saw Lockwood Subjective: * Chief Complaints: * ??? * Medical History:? Objective: * Vitals:? Assessment: Plan: * Treatment: * Images: * The named appointment provid er may or may not be the originator of this progress note, and it is not deemed complete until electronically signed by the appointment provider. Sign off status: Pending * Provider:?Franki Gupta DPM Date:?2024 Generated for Juli milton/Camron/Coco on:?11/07/2024 02:42 PM EDT
--- OUTSIDE RECORDS SUMMARY | 2024-11-07 14:42 | XMS_ITS ---
Author Organization [facility] Address [address] [place] [address] Care Team Providers Care Hunting And Fishing Guide Name Role Phone Mejia JOHNSON, Shantelle Bee Primary Care Provider Un available Franki Gupta Unavailable [phone] REASON FOR VISIT rs appt 11/01/24 Encounters Encounter Location Date Provider Diagnosis [address] [address] 10/31/2024 Franki Gupta Plan Of Treatment Next Appt Details Provider Name:Franki Gupta , 01/31/2025 11:15:00 AM, [address] [place], [address], Progress Notes * Preeti ANTOINEDOB:1945 (79 yo F)Acc No.[id number]:10/31/2024 Patient:?Preeti ANTOINE :1945???Age:79 Y???Sex:Female Address:[address] [place] [address], [phone] * true * Date:? Generated for Juli milton/Camron/eTransmitting on:?11/07/2024 02:42 PM EDT
--- OUTSIDE RECORDS SUMMARY | 2024-11-07 14:42 | XMS_ITS | Clinical Summary ---
Author Organization [facility] Address [address] [place] [address] Phone Care Team Providers Care Cash Accountant Name Role Phone Shantelle Ba MD Primary Care Provider [phone] Allergies No known active allergies Medications apixaban (Eliquis) 5 mg tablet TAKE 1 TABLET BY MOUTH TWICE DAILY 180 tablet 1 07/28/2024 Active albuterol sulfate (ProAir RespiClick) 90 mcg/actuation aerosol powdr breath activated Inhale 1 puff by mouth 1 (one) time each day. 01/31/2015 Active furosemide (LASIX) 20 mg tablet Take 1 tablet (20 mg total) by mouth 1 (one) time each day. 02/23/2020 Active Symbicort 160-4.5 mcg/actuation inhaler Inhale 1 puff by mouth every 12 (twelve) hours. Active multivit-mineral s/folic acid (CENTRUM ADULTS ORAL) 1 (one) time [...] PLUS MV ORAL) Take by mouth. Active isosorbide mononitrate (IMDUR) 30 mg 24 hr tablet TAKE 1 TABLET BY MOUTH DAILY 90 tablet 1 09/27/2024 Active aspirin 81 mg EC tablet Take 1 tablet (81 mg total) by mouth 1 (one) time each day. 90 tablet 3 09/28/2024 Active rosuvastatin (CRESTOR) 20 mg tablet Take 1 tablet (20 mg total) by mouth 1 (one) time each day. 90 tablet 1 09/28/2024 Active Active Problems Problem Noted Date Diagnosed Date Dyspnea 09/30/2024 CAD (coronary artery disease) 10/23/2022 Overview (08/08/2024): [...] severe, symptomatic aortic stenosis. Assessment & Plan (10/10/2024 9:36 PM EDT): Assessment & Plan (08/26/2024 1:05 PM EST): [...] office and the TAVR coordinators at the [facility] structural heart disease program. After all [...] she was seen in consultation with Dr. Castelna in August 2023 with recommendations for watchful [...] weight, and kidney function. She has a [id number] score of 5. Will continue current therapies. Assessment & Plan (10/10/2024 9:36 PM EDT): Orders: ECG 12 lead Assessment & Plan (08/09/2024 4:01 PM EST): [...] Encounters Date Type Department Care Team Description 11/03/2024 Telephone [facility] [address] [place] [address] Omari Castelan MD pt needs labs done before 01/26/25 TAVR f/u visit with [facility] 11/03/2024 Telephone [facility] [address] [place] [address] Omari Castelan MD o Patch-[id number] (ok to book) 10/31/2024 Telephone [facility] [address] [place] [address] LeilaJose M Hollins MD incision site 10/11/2024 Telephone [facility] [address] [place] [address] Mana Rascon MD Procedure (Primary Dual Pacemaker 3.27.25) 10/07/2024 Telephone [facility] [address] [place] [address] Mana Rascon MD implant (Implant) 10/05/2024 1:30 PM EST Consult [facility] [address] [place] [address] Mana Rascon MD Paroxysmal atrial fibrillation (CMS/HCC) (Primary Dx); Mobitz (type) I (Wenckebach's) atrioventricular block; Bradycardia; Nonrheumatic aortic valve stenosis 09/12/2024 Telephone [facility] [address] [place] [address] Krystin Yang NP 08/29/2024 Telephone [facility] [address] [place] [address] Shantelle Ba MD Medical Records 08/26/2024 9:00 AM EST Consult [facility] [address] [place] [address] Omari Castelan MD Aortic valve stenosis, etiology of cardiac valve disease unspecified (Primary Dx) 08/26/2024 Telephone [facility] [address] [place] [address] Marj Spencer RN FCM 08/13/2024 9:00 AM EST Ancillary Procedure [facility] [address] [place] [phone] Paroxysmal atrial fibrillation (CMS/HCC); Bradycardia 08/10/2024 Telephone [facility] [address] [place] [address] Jose M Shane MD ROCT - 25926 (Ok to Book); ROCT Enrollment (Enrolling patient for 14 day ROCT) 08/09/2024 3:10 PM EST Office Visit [facility] [address] [place] [address] Krystin Yang NP Paroxysmal atrial fibrillation (CMS/HCC) (Primary Dx); Bradycardia; Aortic valve stenosis, etiology of cardiac valve disease unspecified from Last 3 Months Surgical History Surgery [...] Date Smoking Tobacco: Never Smokeless Tobacco: Never Tobacco Cessation:Counseling Given: Not Answered Alcohol Use Standard Drinks/Week Comments Not Currently 0 (1 standard drink = 0.6 oz pur e alcohol) Comments Unknown Sex and Gender Information Value Date Recorded Sex Assigned at Not on file Legal Sex Female 6:24 PM EST Gender Identity Not on file Sexual Orientation Not on file Obstetrics History Last Filed Vital Signs Vital Sign Reading Time Taken Comments Blood Pressure 120/60 10/05/2024 1:21 PM EST Pulse 88 10/05/2024 1:21 PM EST Temperature - - Respiratory Rate - - Oxygen Saturation 96% 10/05/2024 1:21 PM EST Inhaled Oxygen Concentration - - Weight 126 kg (278 lb) 10/05/2024 1:21 PM EST Height 152.4 cm (5') 10/05/2024 1:21 PM EST Body Mass Index 54.29 10/05/2024 1:21 PM EST Plan of Treatment Upcoming Encounters Date Type Department Care Team (Late st Contact Info) Description 11/14/2024 1:00 PM EDT Ancillary Procedure [facility] Cardiology [facility] [address] [place] [phone] 12/05/2024 2:10 PM EDT Office Visit [facility] [address] [place] [phone] Felipe Anaya NP [address] [place] [address] [address] [place], [place] [phone] 12/28/2024 1:30 PM EDT Office Visit [facility] [address] [place] [phone] Jose M Shane MD [address] [place] [address] [address] [place], [place] [phone] 01/20/2025 2:00 PM EDT Ancillary Procedure [facility] [address] [place] [address] 01/26/2025 3:40 PM EDT Office Visit [facility] [address] [place] [phone] Felipe Anaya NP [address] [place] [address] [address] [place], [place] [phone] Health Maintenance Due Date Last Done Comments DTaP,Tdap,and Td Vaccines (1 - Tdap) 1964 Cholesterol Screening (Lipid Panel) 07/13/2022 Depression Screening 07/13/2022 Falls Risk Assessment 07/13/2022 Medicare Annual Wellness Visit 07/13/2022 Osteoporosis Screening (Bone Density Screening) 07/13/2022 Social Influencers of Health Screening 07/13/2022 Hypertension/CHF/CAD Annual BMP Blood Test 07/17/2022 Zoster Vaccines (2 of 2) 07/22/2024 05/27/2024 Pneumococcal Vaccine: 50+ Years Completed 06/12/2022, 04/21/2019 COVID-19 Vaccine Completed 04/25/2024, , 12/02/2021, Additional history exists Influenza Vaccine Completed 04/25/2024, , 04/28/2022, Additional history exists RSV Immunization Adult Patients Completed 04/25/2024 HIB Vaccines Aged Out No [...] patient's age to complete this topic Meningococcal B Vaccine Aged Out No l onger eligible based on patient's age to complete this topic RSV Immunization Patients Under 20 months Aged Out No longer eligible based on patient's age to complete this topic Varicella Vaccines Aged Out No longer eligible based on patient's age to complete this topic Procedures Procedure Name Priority Date/Time Associated Diagnosis Comments EXTERNAL CLINICAL LAB Routine 10/19/2024 10:37 AM EDT ECG 12-LEAD Routine 10/05/2024 1:31 PM EST Paroxysmal atrial fibrillation (CMS/HCC) CARDIAC KITCHEN CLERK W/ CONNECTION (MCOT) Routine 08/15/2024 7:23 AM EST Paroxysmal atrial fibrillation (CMS/HCC) Bradycardia from Last 3 Months Results * External clinical lab (10/19/2024 10:37 AM EDT) us Historical Provider LAB BLOOD ORDERABLES Edit ed Result - Final * ECG 12 lead (10/05/2024 1:31 PM EST) Ventricular Rate ECG 88 BPM GEMUSE Atrial Rate 92 BPM GEMUSE QRS Duration 80 ms GEMUSE Q-T Interval 386 ms GEMUSE QTc 467 ms GEMUSE R [place] 90 degrees GEMUSE T [place] 53 degrees GEMUSE ECG Interpretation Atrial fibrillation Rightward axis Cannot rule out Anterior infarct , age undetermined When compared with ECG of 15-JUN-2018 21:59, Atrial fibrillation has replaced Sinus rhythm Confirmed by KEESHA RASCON ([id number]) on 10/10/2024 4:29:17 AM GEMUSE 10/05/2024 1:31 PM EST 10/10/2024 4:29 AM EDT us Mana Rascon MD ECG ORDERABLES Final Resu lt GEMUSE * CARDIAC KITCHEN CLERK W/ CONNECTION (MCOT) (08/15/2024 7:23 AM EST) Anatomical Region Laterality Modality Cardiac Diagnost ic Narrative 09/06/2024 12:54 PM EST [facility] DI[facility]NOSTIC [facility]ING DEPARTMENT [address] [place] [address] TEL: FAX: TYPE OF TEST 14 day ROCT monitor. DATES OF MONITORIN08/13/24-08/27/24 REQUESTING PHYSICIAN: ??Krystin Yang NP PRIMARY CARE PROVIDER: Shantelle Ba MD INDICATION: Paroxysmal Atrial Fibrillation, Bradycardia FINDINGS: 1. The predominant rhythm was Atrial Fibrillation. ??The patient was in atrial fibrillation 100% of the time that she was monitored. 2. The average heart rate was 84 bpm, minimum heart rate was 33 bpm, maximum heart rate was 164 bpm. 3. Total VE burden: 1.9% consisting of singles, couplet, & VE Triplet. 4. ??The longest R to R interval was 3.2 seconds. ??As such, no significant pauses in the setting of persistent atrial fibrillation 5. ??There were 23 patient triggered symptomatic events. ??During some of the patient triggered symptomatic events, her heart rate was noted to be elevated in the setting of atrial fibrillation. Krystin Yang PLANT FLOOR AUTOMATION MANAGER [facility] PROCEDU RES Final Result from Last 3 [place] [id number] [employer] MEDICARE Care Teams Cash Accountant Relationship Specialty Start Date End Date Shantelle Ba MD [address] [place] [address] PCP - General 07/11/22
--- OUTSIDE RECORDS SUMMARY | 2024-11-07 14:43 | XMS_ITS | Encounter Summary ---
Author Organization [facility] Address [address] [place] [address] Care Team Providers Care Refrigerator Mover Name Role Phone Shantelle Ba MD Primary Care Provider [phone] Reason for Visit * Reason Onset Date Comments Zio Patch-[id number] (ok to book) 11/03/2024 Encounter Details Date Type Department Care Team (Late st Contact Info) Description 11/03/2024 Telephone [facility] [address] [place] [address] Omari Castelan MD [address] [place] [address] [address] [place] [address] Zio Patch-25838 (ok to book) Social History Tobacco Use Types Packs/Day Years Used Date Smoking Tobacco: Never Smokeless Tobacco: Never Alcohol Use Standard Drinks/Week Comments Not Currently 0 (1 standard drink = 0.6 oz pur e alcohol) Comments Unknown Sex and Gender Information Value Date Recorded Sex Assigned at Not on file Legal Sex Female 6:24 PM EST Gender Identity Not on file Sexual Orientation Not on file documented as of this encounter Progress Notes * Marisa Durant RN - 11/03/2024 12:55 PM EDT Zio Patch monitor to be done prior to discharge if needed s/p TAVR per Dr Castelan. * Lenora Tim - 11/03/2024 11:18 AM EDT Prior Auth Status: NO Auth Req per [facility] ID #: [id number] Insurance Referral: n/a CPT: 01357 - ZioPatch DX: I35.0, I48.91, I44.1, R06.00 Duration: 14 Days [place]: Flip RAYMOND to BOOK documented in this encounter Plan of Treatment Upcoming Encounters Date Type Department Care Team (Late st Contact Info) Description 11/14/2024 1:00 PM EDT Ancillary Procedure [facility] [address] [place] [phone] 12/05/2024 2:10 PM EDT Office Visit [address] [place] [phone] Felipe Anaya NP [address] [place] [address] [address] [place] [address] 12/28/2024 1:30 PM EDT Office Visit [facility] [address] [facility] [address] [place] [phone] Jose M Shane MD [address] [place] [address] [address] [place] [address] 01/20/2025 2:00 PM EDT Ancillary Procedure [facility] [address] [place] [phone] 01/26/2025 3:40 PM EDT Office Visit [facility] Dr [address] [facility] [address] [place] [phone] Felipe Anaya NP [address] [place] [address] [address] [place] [address] documented as of this encounter Visit Diagnoses Not on filedocumented in this encounter Care Teams Refrigerator Mover Relationship Specialty Start Date End Date Shantelle Ba MD [address] [facility] [place] [address] PCP - General 07/11/22 documented as of this encounter
--- OUTSIDE RECORDS SUMMARY | 2024-11-07 14:43 | XMS_ITS | Patient Health Record ---
Author Organization [facility] Address [address] [place] [address] Care Team Providers Care [place] Supervisor Name Role Phone Mejia JOHNSON, Shantelle Bee Primary Care Provider Un available Francesco Guptaik Unavailable [phone] Allergies No Known Allergies Reason For Referral [...] Onc e a day Active Social History Alcohol Screen Question Answer Notes Did you have a drink containing alcohol in the p ast year? No Points 0 Interpretation Negative Tobacco use other than smoking: Question Answer Notes Are you an other tobacco user? No Problems Problem Type SNOMED Code ICD Code Onset Dates Problem Status W/U Status Risk Notes Problem Atherosclerosis of [place] arteries of the extremities (113309103503791) Atherosclerosis of [place] artery of both lower extremities, with unspecified presence of clinical manifestation (I70.203) Active confirmed Vital Signs Blood pressure diastolic 80 mm Hg 07/26/2024 Height 5 ft in 07/26/2024 Blood pressure systolic 123 mm Hg 07/26/2024 Weight 280 lbs 07/26/2024 BMI 54.68 kg/m2 07/26/2024 Procedures Procedure Date Ordered Date Performed Result Body Sit e 25505-CVDTJKA NAIL, 6 OR MORE 11/27/2023 N/A 68003-Wqjcjsmn Plate 11/27/2023 N/A 85197-LSTF SKIN LESIONS, 2 TO 4 11/27/2023 N/A 70532-SGTYFTM NAIL, 6 OR MORE 02/12/2024 N/A 93704-Cjitaowd Plate 02/12/2024 N/A 84394-PYHU SKIN LESIONS, 2 TO 4 02/12/2024 N/A 99059-ETFDZLQ NAIL, 6 OR MORE 04/22/2024 N/A 68553-PDMD SKIN LESIONS, 2 TO 4 04/22/2024 N/A 64605-ZMOSNRO NAIL, 6 OR MORE 07/26/2024 N/A 08823-HNWG SKIN LESIONS, 2 TO 4 07/26/2024 N/A Encounters Encounter Location Date Provider Diagnosis [address] [address] 11/27/2023 Franki Candy Atherosclerosis of [place] artery of both lower extremities, with unspecified presence of clinical manifestation I70.203 ; Tinea unguium B35.1 ; Pain in right toe(s) M79.674 ; Pain in left toe(s) M79.675 and Ingrown nail L60.[address] [address] 02/12/2024 Franki Candy Atherosclerosis of [place] artery of both lower extremities, with unspecified presence of clinical manifestation I70.203 ; Tinea unguium B35.1 ; Pain in right toe(s) M79.674 ; Pain in left toe(s) M79.675 and Ingrown nail L60.[address] [address] 04/22/2024 Franki Candy Atherosclerosis of [place] artery of both lower extremities, with unspecified presence of clinical manifestation I70.203 ; Tinea unguium B35.1 ; Pain in right toe(s) M79.674 and Pain in left toe(s) M79.[address] [address] 07/26/2024 Franki Candy Atherosclerosis of [place]k artery of both lower extremities, with unspecified presence of clinical manifestation I70.203 ; Tinea unguium B35.1 ; Pain in right toe(s) M79.674 and Pain in left toe(s) M79.675 [facility] [address] [address] 10/31/2024 Franki Gupta Assessments Encounter Date Diagnosis (ICD Code) Assessment Notes Treatment Notes Treatment Clinical Notes Section Notes 11/27/2023 Tinea unguium (ICD-10 - B35.1) 11/27/2023 Atherosclerosis of [place] artery of both lower extremities, with unspecified presence of clinical manifestation (ICD-10 - I70.203) 02/12/2024 Tinea unguium (ICD-10 - B35.1) 02/12/2024 Atherosclerosis of [place] artery of both lower extremities, with unspecified presence of clinical manifestation (ICD-10 - I70.203) 04/22/2024 Tinea unguium (ICD-10 - B35.1) 04/22/2024 Atherosclerosis of [place] artery of both lower extremities, with unspecified presence of clinical manifestation (ICD-10 - I70.203) 07/26/2024 Tinea unguium (ICD-10 - B35.1) 07/26/2024 Atherosclerosis of [place] artery of both lower extremities, with unspecified [...] L60.0) 11/27/2023 Ingrown nail (ICD-10 - L60.0) Plan Of Treatment Pending Test Test Name Order Date 08247-TZLDLJZ NAIL, 6 OR MORE 09/18/2023 83463-CWKLBPP NAIL, 6 OR MORE 11/27/2023 56454-GKUPYQL NAIL, 6 OR MORE 02/12/2024 16524-VRSPWTQ NAIL, 6 OR MORE 04/22/2024 84602-NJLNWYD NAIL, 6 OR MORE 07/26/2024 47533-Ibpwnusq Plate 02/12/2024 02554-Vftnxjqs Plate 11/27/2023 08863-Ekieckkh Plate 09/18/2023 54853-TLZU SKIN LESIONS, 2 TO 4 09/18/19 81083-XHPO SKIN LESIONS, 2 TO 4 11/27/19 83793-QBEN SKIN LESIONS, 2 TO 4 02/12/20 39853-GOBV SKIN LESIONS, 2 TO 4 04/22/20 19451-CLLM SKIN LESIONS, 2 TO 4 07/26/20 Next Appt Details Provider Name:Franki Gupta , 01/31/2025 11:15:00 AM, [address] [facility], [place], [address], Insurance Providers Payer Name Payer Address Payer Phone Subscriber Number Group Number Insured Name Patient Relationship to Insured Coverage Start Date Coverage End Date A[employer] Medicare Complete [address] [address] [place] [address] [id number] Preeti Antoine Self - patient is the insured Medical (General) History Medical History History ICD Code Arthritis Knee pain CAD (Cholesterol) Diverticulosis Heart disease High blood pressure asthma Surgical History Surgery Date(Month/Year)
--- OUTSIDE RECORDS SUMMARY | 2024-11-07 14:43 | XMS_ITS ---
Author Organization [facility] Address [address] [place] [address] Care Team Providers Care Interventional Sale Consultant Name Role Phone Mejia JOHNSON, Shantelle Bee Primary Care Provider Un available Candy, Franki Unavailable [phone] Allergies No Known Allergies REASON FOR VISIT [...] tablet Orally O nce a day Active Fish Oil 1000 MG 1 capsule Orally Onc e a day Active Metoprolol Succinate ER 100 MG 1 tablet Orally Once a day Active Furosemide 20 MG 1 tablet Orally Once a day Active Isosorbide Mononitrate Active Symbicort Active Albuterol Active Centrum Silver Activ e Social History Tobacco Use: Social History Observation Description Date Details (start date - stop date) Former Smoker NA - NA Tobacco Use/Smoking Question Answer Notes Are you a: former smoker Additional Findings: Tobacco Non-User Current no n-smoker Tobacco use other than smoking: Question Answer Notes Are you an other tobacco user? No Vital Signs Height 5 ft in 07/26/2024 Weight 280 lbs 07/26/2024 BMI 54.68 kg/m2 07/26/2024 Blood pressure systolic 123 mm Hg 07/26/20 24 Blood pressure diastolic 80 mm Hg 024 Procedures Procedure Date Ordered Date Performed Result Body Sit e 37057-ZFWCDWS NAIL, 6 OR MORE 07/26/2024 N/A 02786-LNCE SKIN LESIONS, 2 TO 4 07/26/2024 N/A Encounters Encounter Location Date Provider Diagnosis [facility] [address] [address] 07/26/2024 Franki Gupta Atherosclerosis of solomon artery of both lower extremities, with unspecified presence of clinical manifestation I70.203 ; Tinea unguium B35.1 ; Pain in right toe(s) M79.674 and Pain in left toe(s) M79.675 Assessments Encounter Date Diagnosis (ICD Code) Assessment Notes Treatment Notes Treatment Clinical Notes Section Notes 07/26/2024 Atherosclerosis of solomon artery of both lower extremities, with unspecified presence of clinical manifestation (ICD-10 - I70.203) 07/26/2024 Tinea unguium (ICD-10 - B35.1) 07/26/2024 Pain in right toe(s) (ICD-10 - M79.674) 07/26/2024 Pain in left toe(s) (ICD-10 - M79.675) Plan Of Treatment Pending Test Test Name Order Date 83730-ORLCVNH NAIL, 6 OR MORE 07/26/2024 40105-FAPD SKIN LESIONS, 2 TO 4 07/26/20 Next Appt Details Follow Up: prn, Reason: Provider Name:Franki Gupta , 01/31/2025 11:15:00 AM, [address] [place] [address], [id number], Procedure Notes * Category Sub-Category Detail Notes Debride Nail 6-10 Nail debridement Due to the cl inical pathology outlined in the exam findings, performance of this nail treatment is medically necessary as its management by an unskilled/untrained nonprofessional would put this patients foot and overall health at risk. Therefore, debridement to affected nail(s), as described in exam ( TA, T1, T2, T5, T6, T7, T8, T9), was performed exclusively by the physician of record to reduce/remove overall nail length, girth, thickness, subungual debris, and necrotic tissue, by manual and/or electrical means through the use of a nail nipper and/or dremel-type external grinder tender, to a more viable healthy nail plate or bed tissue 6-10 nails in total. Silver nitrate was used for any petechial bleeding as necessary. Definitive antifungal treatment options, both pharmaceutical and surgical, have been reviewed and discussed with the patient. The patient solely prefers the use of intermittent/as needed professional debridement services for their nail condition and understands the need for additional periodic treatments to maintain effectiveness in symptomatic relief - 56963 Keratoma Treatment Parring or Cutting o f Benign Hyperkeratotic Lesion(s) (-56) 2-4 Lesions - Due to the at risk nature of the patients medical condition as documented in the exam findings, performance of this keratoderma treatment is medically necessary as its management by an unskilled/untrained nonprofessional would put this patients foot and overall health at risk. Therefore, the benign hyperkeratotic lesions, ( 3) in total, locations as stated and described in the exam ( Medial, IPJ, T5, Plantar, Heel(s) , B/L), were pared, and/or cut utilizing a sterile 15 blade, tissue nippers, and/or power dremel instrumentation by the physician of record - 86037, Q8 Progress Notes * Jeb ANTOINEaliceDOB:1945 (79 yo F)Acc No.[id number]:07/26/2024 Progress Note Patient:?Preeti ANTOINE Provider:?Franki Gupta DPM :1945???Age:79 Y???Sex:Female D ate:07/26/2024 Address:[address] [place] [address] Pcp:Saw Lockwood Subjective: * Chief Complaints: * [...] than smoking?Are you an other tobacco user??No * Medications:?TakingVitamin D 3 Fish Oil 1000 MG Capsule 1 capsule Orally Once a day Centrum Silver Albuterol Symbicort Isosorbide Mononitrate Furosemide 20 MG Tablet 1 tablet Orally Once a day Metoprolol Succinate ER 100 MG Tablet Extended Release 24 Hour 1 tablet Orally Once a day Aspirin Low Dose 81 MG Tablet Chewable 1 tablet Orally Once a day Rosuvastatin Calcium 20 MG Tablet 1 tablet Orally Once a day Eliquis 5 MG Tablet 1 tablet Orally Twice a day Medication List reviewed and reconciled with the patientTaking Vitamin D3 Taking Fish Oil 1000 MG Capsule 1 capsule Orally Once a day Taking Centrum Silver Taking Albuterol Taking Symbicort Taking Isosorbide Mononitrate Taking Furosemide 20 MG Tablet 1 tablet Orally Once a day Taking Metoprolol Succinate ER 100 MG Tablet Extended Release 24 Hour 1 tablet Orally Once a day Taking Aspirin Low Dose 81 MG Tablet Chewable 1 tablet Orally Once a day Taking Rosuvastatin Calcium 20 MG Tablet 1 tablet Orally Once a day Taking Eliquis 5 MG Tablet 1 tablet Orally Twice a day Medication List reviewed and reconciled with the patient * Allergies:?N.K.D.A.yes[Aller gies Verified] Objective: * Vitals:?Ht: 5 ft, Wt: 280, B MA: 54.68, Shoe size: 10, BP: 123/80 mm Hg, Ht-cm: 152.4 cm, Wt-k.01 kg. * Examination: ???Vascular: ?DP PULSES (B):? 0/4, B/L.?PT PULSES (B):? 0/4, B/L.?CAPILLARY FILL TIME:? delayed, all digits, B/L.?TROPHIC CONDITION-TEXTURE/ELASTICITY/TURGOR/HAIR GROWTH (B):? decreased, with sparse to absent hair growth, B/L.?TEMPERTURE GRADIENT (C):? decreased, cool to cool, proximal to distal, B/L.?PIGMENTATION:?rubrous, B/L.?EDEMA (C):?4/4 , pitting , without aching pain , Leg(s) , Ankle(s) , Foot , B/L.?CLAUDICATION (C):?denies, B/L.?REST PAIN:?denies, B/L.?Nails: ?NAILS are:? Elongated, overgrown, dystrophic, lytic, greater than 3mm thick, discolored and friable with crumbly malodorous subungual debris, with pain on palpation, TA, T1, T2,T5, T6, T7, T8, T9, all other nails not described with characteristics as possessing mycosis are elongated, overgrown, and dystrophic.?Dermatologic: ?SKIN FINDINGS:?Skin exam reveals Keratotic lesion(s) located at , Medial,?IPJ, T5, Plantar, Heel(s) , B/L.? 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 Plan: * Treatment: 2.?Tinea unguium?Procedure: 09539-NIGSEIU NAIL, 6 OR MORE * Procedures:?Debride Nail 6-10:?Nail debridement?Due to the clinical pathology outlined in the exam findings, performance of this nail treatment is medically necessary as its management by an unskilled/untrained nonprofessional would put this patients foot and overall health at risk. Therefore, debridement to affected nail(s), as described in exam (?TA,?T1,?T2,?T5, T6, T7, T8, T9), was performed exclusively by the physician of record to reduce/remove overall nail length, girth, thickness, subungual debris, and necrotic tissue, by manual and/or electrical means through the use of a nail nipper and/or dremel-type external grinder tender, to a more viable healthy nail plate or bed tissue 6- 10 nails in total. Silver nitrate was used for any petechial bleeding as necessary. Definitive antifungal treatment options, both pharmaceutical and surgical, have been reviewed and discussed with the patient. The patient solely prefers the use of intermittent/as needed professional debridement services for their nail condition and understands the need for additional periodic treatments to maintain effectiveness in symptomatic relief - 56137.?Keratoma Treatment:?Parring or Cutting of Benign Hyperkeratotic Lesion(s)?(-56) 2-4 Lesions - Due to the at risk nature of the patients medical condition as documented in the exam findings, performance of this keratoderma treatment is medically necessary as its management by an unskilled/untrained nonprofessional would put this patients foot and overall health at risk. Therefore, the benign hyperkeratotic lesions, ( 3) in total, locations as stated and described in the exam (??Medial,?IPJ,?T5,?Plantar,?Heel(s)?,?B/L), were pared, and/or cut utilizing a sterile 15 blade, tissue nippers, and/or power dremel instrumentation by the physician of record - 48221, Q8.? * Procedure Codes:?81948 DEBRI DE NAIL, 6 OR MORE, Modifiers: XS 15470 TRIM SKIN LESIONS, 2 TO 4, Modifiers: XS , Q8 * Follow Up:?prn * Images: * Sign off status: Completed true * Provider:?Franki Gupta DPM Date:?2023 Generated for Juli milton/Camron/Coco on:?11/07/2024 02:43 PM EDT History and Physical Notes * HPI (History of Present Illness) Category Sub-Category Detail Notes Category Not es At Risk footcare Pt States Last PCP Visit: Date: Examination Category Sub-Category Detail Notes Category Not es Dermatologic SKIN FINDINGS: Skin exam reveal s Keratotic lesion(s) located at , Medial, IPJ, T5, Plantar, Heel(s) , B/L Vascular DP PULSES (B): [...] debris, with pain on palpation, TA, T1, T2,T5, T6, T7, T8, T9, all other nails not described with characteristics as possessing mycosis are elongated, overgrown, and dystrophic
--- OUTSIDE RECORDS SUMMARY | 2024-11-07 14:43 | XMS_ITS | Encounter Summary ---
Author Organization [facility] Address [address] [place] [address] Care Team Providers Care Fabric And Textile Factory Worker Name Role Phone Shantelle Ba MD Primary Care Provider [phone] Reason for Visit * Reason Onset Date Comments incision site 10/31/2024 Encounter Details Date Type Department Care Team (Late st Contact Info) Description 10/31/2024 Telephone [facility] [address] [place] [address] [place] [address] LeilaJose M Hollins MD [address] [place] [address] Dr [address] [place] [address] incision site Social History Tobacco Use Types Packs/Day Years [...] as of this encounter Progress Notes * JEN Pinedo - 11/01/2024 12:21 PM EDT Did review photos of incision well-approximated ecchymosis is resolving glue is intact no erythema-okay to wait for an office wound check-November 14 for full device interrogation. Certainly she can call if fever, chills increased pain, drainage redness or swelling. * Jessica Andrew MA - 11/01/2024 10:53 AM EDT The photos are there. So we will see her at her regular visit? * Jessica Andrew MA - 11/01/2024 9:25 AM EDT The daughter will send photos to me. She said it does look better today. * Kennedi Lacey - 10/31/2024 4:10 PM EDT The patients daughter Latricia called, they just removed the bandages after her ICD implant and are concerned about the incision site. The wound is red and swollen, it sticks up from her skin. Please call her back at [phone]. documented in this encounter Plan of Treatment Upcoming Encounters Date Type Department Care Team (Late st Contact Info) Description 11/14/2024 1:00 PM EDT Ancillary Procedure [facility] [address] [facility] [address] [place] [address] 12/05/2024 2:10 PM EDT Office Visit [facility] [address] [place] [address] [address] [place] [phone] Felipe Anaya NP [address] [place] [address] Dr [address] [place] [address] 12/28/2024 1:30 PM EDT Office Visit [facility] Dr [address] [address] [place] [phone] Jose M Shane MD [address] [place] [address] Dr [address] [place] [address] 01/20/2025 2:00 PM EDT Ancillary Procedure [facility] [address] [place] [address] 01/26/2025 3:40 PM EDT Office Visit [facility] [address] [facility] [address] [place] [address] Felipe Anaya NP [address] [place] [address] Dr [address] [place] [address] documented as of this encounter Visit Diagnoses Not on filedocumented in this encounter Care Teams Fabric And Textile Factory Worker Relationship Specialty Start Date End Date Shantelle Ba MD [address] [place] [address] PCP - General 07/11/22 documented as of this encounter
--- OUTSIDE RECORDS SUMMARY | 2024-11-07 14:43 | XMS_ITS | Encounter Summary ---
Author Organization [facility] Address [address] [place] [address] Care Team Providers Care Manager Alliance Name Role Phone Shantelle Ba MD Primary Care Provider [phone] Reason for Visit * Reason Onset Date Comments pt needs labs done before 01/26/25 TAVR f/u visit with [facility] 11/03/2024 Encounter Details Date Type Department Care Team (Late st Contact Info) Description 11/03/2024 Telephone [facility] [place] [address] [place] [phone] Omari Castelan MD [address] [place] [address] Dr [address] [place] [address] pt needs labs done before 01/26/25 TAVR f/u visit with [facility] Social History Tobacco Use Types Packs/Day Years [...] as of this encounter Progress Notes * Eveline Roca - 11/03/2024 3:08 PM EDT Preeti is scheduled for a TAVR follow up visit with Felipe Anaya on January at 3:40 PM. Can you please arrange labs prior to her appointment? Thanks. documented in this encounter Plan of Treatment Upcoming Encounters Date Type Department Care Team (Late st Contact Info) Description 11/14/2024 1:00 PM EDT Ancillary Procedure [facility] [address] [place] [address] 12/05/2024 2:10 PM EDT Office Visit [facility] [address] [place] [address] Felipe Anaya NP [address] [place] [address] [address] [place], [place] [phone] 12/28/2024 1:30 PM EDT Office Visit [facility] [address] [place] [address] Jose M Shane MD [address] [place] [address] Dr [address] [place] [address] 01/20/2025 2:00 PM EDT Ancillary Procedure [facility] [address] [place] [phone] 01/26/2025 3:40 PM EDT Office Visit [facility] [address] [place] [address] Felipe Anaya NP [address] [place] [address] Dr [address] [place] [address] documented as of this encounter Visit Diagnoses Not on filedocumented in this encounter Care Teams Manager Alliance Relationship Specialty Start Date End Date Shantelle Ba MD [address] [place] [address] PCP - General 07/11/22 documented as of this encounter
== END 2024-11-07 13:28 | disposition home or self-care (01) ==
PROVIDERS: PCP Internal Medicine; Visit Provider Internal Medicine
DX: J45.20 Mild intermittent asthma, uncomplicated (principal); Z79.01 Long term (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; N18.9 Chronic kidney disease, unspecified; I48.91 Unspecified atrial fibrillation; D64.9 Anemia, unspecified

== ENCOUNTER → 2024-11-07 12:23 | Outpatient (BNVA) | payer MEDICARE, SELFPAY | PROVIDERS: PCP Internal Medicine; Visit Provider Internal Medicine | DX: I25.10 Atherosclerotic heart disease of native coronary artery without angina pectoris (principal); I48.91 Unspecified atrial fibrillation; I49.5 Sick sinus syndrome; I35.0 Nonrheumatic aortic (valve) stenosis; J45.20 Mild intermittent asthma, uncomplicated; N18.30 Chronic kidney disease, stage 3 unspecified; D63.1 Anemia in chronic kidney disease; Z79.01 Long term (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; Z95.0 Presence of cardiac pacemaker; Z87.891 Personal history of nicotine dependence | CPT/HCPCS: 96127; 99212 ==

== ENCOUNTER 2025-01-17 13:02 | Outpatient (AMB) | payer MEDICARE, SELFPAY ==
--- NOTE | 2025-01-17 13:14 | AM.OFFWIN_ITS ---
Intake Vital Signs 01/17/25 13:15 Height 5 ft Weight 242 lb 8 oz BMI 47.4 BP 116/78 Blood Pressure Location Rt brachial Position Sitting Pulse 98 Pulse Source Pulse Oximeter Temp 98.3 F Temp Source Oral Pulse Oximetry (%) 93 Oxygen Delivery Method Room Air Intake Visit Reasons: EP upset stomach, diarrhea Intake Note: Patient presents with upset stomach and diarrhea times 6 days Patient Tobacco Use Status: Former Tobacco user Cooker Syrup Required: No Allergies No Known Allergies Allergy (Verified 01/17/25 13:21) Do you need a note to return to daycare/school/sports/work: No HPI HPI Comments History of Present Illness Details History of Present Illness - The patient is an 79-year-old female p resenting with stomach ache and diarrhea for 6 days. - The stomach ache and diarrhea is inter mittent and not associated with meals. - Diarrhea is watery, without blood but is at her baseline black coloration, attributed to iron supplementation. - No associated fever or nausea, althoug h there is a reduced appetite. - Denies having any meal that was suspic ious for food poisoning. - Denies recent abx use. - The patient has a history of aortic va lve replacement, takes Eliquis and pacemaker implantation. - She is on blood thinners and iron supp lements, which she says cause black stools. - Significant weight loss of 40 pounds s miguelangel September through dietary changes, including cutting out sugar, soda, salt, and bread. Physical Exam General: Cooperative, healthy appearing, comfortable, no acute distress and well developed Orientation: Patient oriented x3 Limitations: No limitations Head: Normal to inspection Ears: Hearing grossly normal bilaterally Nose: Normal External nose present Face and sinus: Normal facial exam Eyes: Appearance normal, both eyes and all related structures Neck: Normal visual inspection and Yes full ROM Respiratory: Normal respiratory effort and able to speak in complete sentences. GI: obese, normoactive bs, soft, negative mcburney's, negative murphys Skin: No rashes or lesions noted Neuro: Patient oriented x3 Extremities: Normal to inspection [facility] Medical History (Updated 01/17/25 @ 13:46 by Susan Kay PA-C) Anemia Aortic stenosis, moderate Mild intermittent asthma Paroxysmal atrial fibrillation Aortic stenosis AV block Obesity Obesity Hypertension Dyslipidemia History of atrial fibrillation Wheezing Elevated brain natriuretic peptide (BNP) level Lymphedema Lymphedema of both lower extremities Stress incontinence Chronic kidney disease Diverticulitis Atrial fibrillation Osteoarthritis Dyslipidemia Essential hypertension Surgical History Hx of colonoscopy History of tubal ligation Family History Son Esophageal cancer Social History Household Members: None Housing: Apartment Do you presently have visiting nurse or other home services: No Alcohol intake: current Alcohol intake frequency: holidays/special occasions only Comment: low fall supervise with walker Patient Tobacco Use Status: Former Tobacco user Tobacco use type: Cigarette Years Smoked: 40 yrs e-Cigarette/Vaping Use: Never Used Second Hand Smoke Exposure: No service: No Current occupational status: retired 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 Current occupational exposures/hazards: No Cognitive needs: No Hearing needs: No Vision needs: Yes Review of Systems Const All systems reviewed & are unremarkable except as noted in HPI and below Physical Exam Vital Signs: Last Vital Signs Temp 98.3 F 01/17/25 13:15 Pulse 98 01/17/25 13:15 BP 116/78 01/17/25 13:15 Pulse Ox 93 01/17/25 13:15 Oxygen Delivery Method Room Air 01/17/25 13:15 BMI result Body Mass Index 47.4 Assessment & Plan Assessment & Plan (1) Diarrhea: Code(s): R19.7 - Diarrhea, unspecified Qualifiers: Diarrhea type: presumed infectious Qualified Code(s): R19.7 - Diarrhea, unspecified Plan: - A stool sample will be collected for a GI panel to identify any bacterial infection causing the prolonged diarrhea. - The patient will be provided with a kit for stool sample collection and instructed to return it to the lab for analysis. - Results are expected within a day, and treatment will be determined based on the findings. Patient was informed and verbally consented to the use of an ambient scribe for clinic note documentation during this visit. Orders: Orders GI Panel Today R19.7 - Diarrhea, unspecified Coding Level of Care Code Est Pt Level 3 (65893) Diagnoses Diarrhea of presumed infectious origin R19.7 Diarrhea type: presumed infectious
[2025-01-17 13:15] VITALS: BP 116/78; PULSE 98; TEMP 36.8; O2SAT 93; BMI 47.4
--- OUTSIDE RECORDS SUMMARY | 2025-01-17 14:46 | XMS_ITS | Encounter Summary ---
Author Organization [facility] Address [address] [place] [address] Care Team Providers Care Program Advisor Name Role Phone Shantelle Ba MD Primary Care Provider Reason for Visit * Reason Onset Date Comments Medication Reaction 01/09/2025 Encounter Details Date Type Department Care Team (Late st Contact Info) Description 01/09/2025 Telephone [facility] Dr [address] [place] [address] Jose M Shane MD [address] [place] [address] Dr [address] [place] [address] Medication Reaction Social History Tobacco Use Types Packs/Day Years [...] as of this encounter Progress Notes * Jose M Shane MD - 01/09/2025 10:59 AM EDT 1. I am concerned about the possibility that the Jardiance may have caused an allergic reaction. Will recommend to continue to hold the Jardiance at this point. 2. If the patient's itchiness/hives does not improve with the Benadryl then she needs to go to the emergency room for further evaluation. Also, if the patient develops any shortness of breath or swelling she needs to go to the emergency room. * Belen Álvarez MA - 01/09/2025 9:01 AM EDT I called and spoke with Latricia the pts dtr, in addition to the info taken below, the pt is thankfully doing well , Latricia was calling to ask what would take the place of jardiance [facility] consult has been scanned in for reference * Yaakov Pimentel - 01/09/2025 8:49 AM EDT Patient's daughter called today because she patient was prescribed jardiance upon release from [facility] last week. She took one dose 01/06 and woke up 6/ itchy and covered in hives/welts. Pharmacist recommended she stop right away which she did. Benadryl has been helping with the itch and she is much better today. Please give them a call back at [phone] to advise. documented in this encounter Plan of Treatment Upcoming Encounters Date Type Department Care Team (Late st Contact Info) Description 01/26/2025 3:40 PM EDT Office Visit [facility] Card[facility] [address] [place] [address] Felipe Anaya NP [address] [place] [address] [address] [place] [address] 04/05/2025 3:30 PM EDT Ancillary Procedure [facility] Card[facility] [place] [address] 04/26/2025 11:20 AM EDT Office Visit [facility] Card[facility] [address] [place] [address] Jose M Shane MD [facility] [address] [place] [address] 11/15/2025 3:30 PM EDT Ancillary Procedure [facility] [address] [place] [address] documented as of this encounter Visit Diagnoses Not on filedocumented in this encounter Care Teams Program Advisor Relationship Specialty Start Date End Date Shantelle Ba MD [address] [place] [address] PCP - General 07/11/22 documented as of this encounter
== END 2025-01-17 13:58 | disposition home or self-care (01) ==
PROVIDERS: PCP Internal Medicine; Visit Provider Physician Assistant
DX: R19.7 Diarrhea, unspecified (principal)

== ENCOUNTER → 2025-01-17 13:02 | Outpatient (BNVA) | payer MEDICARE, SELFPAY | PROVIDERS: PCP Internal Medicine | DX: R19.7 Diarrhea, unspecified (principal) | CPT/HCPCS: 99212 ==

== ENCOUNTER 2025-01-18 07:50 | Outpatient (REF) | payer MEDICARE, SELFPAY ==
--- OUTSIDE RECORDS SUMMARY | 2025-01-18 08:50 | XMS_ITS | Encounter Summary ---
Author Organization [facility] Address [address] [place] [address] Care Team Providers Care Instructional Technology Facilitator Name Role Phone Shantelle aB MD Primary Care Provider Reason for Visit * Reason Onset Date Comments Medication Reaction 01/09/2025 Encounter Details Date Type Department Care Team (Late st Contact Info) Description 01/09/2025 Telephone [facility] [address] [place] [address] Jose M Shane MD [address] [place] [address] [address] [place] [address] Medication Reaction Social History Tobacco Use Types [...] what would take the place of jardiance [facility] consult has been scanned in for reference * Yaakov Pimentel - 01/09/2025 8:49 AM EDT Patient's daughter called today because she patient was prescribed jardiance upon release from [facility] last week. She took one dose 01/06 and woke up 6/ itchy and covered in hives/welts. Pharmacist recommended she stop right away which she did. Benadryl has been helping with the itch and she is much better today. Please give them a call back at [phone] to advise. documented in this encounter Plan of Treatment Upcoming Encounters Date Type Department Care Team (Late st Contact Info) Description 01/26/2025 3:40 PM EDT Office Visit [facility] [address] [place] [phone] Felipe Anaya NP [address] [place] [address] [address] [place] [address] 04/05/2025 3:30 PM EDT Ancillary Procedure [facility] [address] [place] [id number] 04/26/2025 11:20 AM EDT Office Visit [facility] [address] [place] [phone] Jose M Shane MD [facility] Center [address] [place] [address] 11/15/2025 3:30 PM EDT Ancillary Procedure [facility] [address] [place] [address] documented as of this encounter Visit Diagnoses Not on filedocumented in this encounter Care Teams Instructional Technology Facilitator Relationship Specialty Start Date End Date Shantelle Ba MD [address] [place] [address] PCP - General 07/11/22 documented as of this encounter
[2025-01-18 12:34] LABS: Adenovirus F 40/41 Not Detected (Not Detect.); Astrovirus Not Detected (Not Detect.); Campylobacter Not Detected (Not Detect.); Cryptosporidium Not Detected (Not Detect.); Cyclospora cayetanensis Not Detected (Not Detect.); E. coli EAEC Not Detected (Not Detect.); E. coli EPEC Not Detected (Not Detect.); E. coli ETEC Not Detected (Not Detect.); E. coli STEC Not Detected (Not Detect.); Entamoeba histolytica Not Detected (Not Detect.); Giardia lamblia Not Detected (Not Detect.); Norovirus GI/GII Not Detected (Not Detect.); Plesiomonas shigelloides Not Detected (Not Detect.); Rotavirus A Not Detected (Not Detect.); Salmonella Not Detected (Not Detect.); Sapovirus Not Detected (Not Detect.); Shigella sp./EIEC Not Detected (Not Detect.); Vibrio Not Detected (Not Detect.); Vibrio Cholerae Not Detected (Not Detect.); Yersinia enterocolitica Not Detected (Not Detect.)
== END 2025-01-18 07:51 | disposition home or self-care (01) ==
LOC: HO.HMGCLNP 07:50
PROVIDERS: PCP Internal Medicine; Visit Provider Physician Assistant
DX: R19.7 Diarrhea, unspecified (principal)
CPT/HCPCS: 87507

== ENCOUNTER 2025-02-18 08:42 | Outpatient (REF) | payer MEDICARE, SELFPAY ==
[2025-02-18 11:15] LABS: MANUAL DIFF FLAG NO
[2025-02-18 11:22] LABS: Hematocrit 37.3 % (37.0-47.0); Hemoglobin 11.4 g/dl (12.0-16.0); Imm Gran Abs Auto 0.02 X10*3/uL (0.00-0.03); Imm Gran Pct Auto 0.3 % (0.0-0.4); Lymphocytes Absolute Auto 1.7 X10*3/uL (1.2-4.9); Mean Corpuscular HGB Conc 30.6 g/dl (31.0-35.0); Mean Corpuscular Hemoglobin 26.3 pg (27.0-33.0); Mean Corpuscular Volume 86.1 fL (80.0-98.0); NRBC Abs Auto 0.000 X10*3/uL (0.0-0.012); NRBC Pct Auto 0.0 /100WBC (0.0-0.2); Platelet Count 211 X10*3/uL (160-400); Red Blood Count 4.33 X10*6/uL (4.20-5.50); White Blood Count 7.5 X10*3/uL (4.8-10.8)
[2025-02-18 11:43] LABS: Alanine Aminotransferase 10 U/L (0-31); Anion Gap 13 (12-20); Aspartate Amino Transferase 26 U/L (5-31); Blood Urea Nitrogen 20 mg/dL (9-16); Calcium 9.0 mg/dL (8.4-10.2); Carbon Dioxide 28 mmol/L (22-29); Chloride 108 mmol/L (96-108); Cholesterol 102 mg/dL (<200); Estimated Glomerular Filt Rate 41; HDL Cholesterol 30 mg/dL (>40); Iron 46 mcg/dL (30-160); Percent Iron Saturation 21 % (15-50); Potassium 4.1 mmol/L (3.3-5.1); Sodium 145 mmol/L (135-145); Total Iron Binding Capacity 219 mcg/dL (228-428); Triglycerides 157 mg/dL (<150); Unsaturated Iron Binding 173 ug/dL
== END 2025-02-18 08:43 | disposition home or self-care (01) ==
LOC: HO.HMGCLDS 08:42
PROVIDERS: PCP Internal Medicine; Visit Provider Internal Medicine
DX: I12.9 Hypertensive chronic kidney disease with stage 1 through stage 4 chronic kidney disease, or unspecified chronic kidney disease (principal); N18.9 Chronic kidney disease, unspecified; I35.0 Nonrheumatic aortic (valve) stenosis; E78.5 Hyperlipidemia, unspecified; Z78.0 Asymptomatic menopausal state; Z79.01 Long term (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
CPT/HCPCS: 36415; 80048; 80061; 82306; 83540; 84450; 84460; 85025

== ENCOUNTER 2025-02-20 07:37 | Outpatient (AMB) | payer MEDICARE, SELFPAY ==
--- OUTSIDE RECORDS SUMMARY | 2025-01-31 07:15 | XMS_ITS ---
Author Organization [facility] Address [address] [place] [address] Care Team Providers Care Nozzle Worker Name Role Phone Mejia JOHNSON, Shantelle Bee Primary Care Provider Un available Franki Gupta Unavailable [phone] REASON FOR VISIT seen on Encounters Encounter Location Date Provider Diagnosis [address] [address] 01/31/2025 Franki Gupta Plan Of Treatment Next Appt Details Provider Name:Franki Gupta , 03/24/2025 12:00:00 PM, [address] [place] [address], [phone], Progress Notes * Preeti ANTOINEDOB:1945 (79 yo F)Acc No.[id number]:01/31/2025 Progress Note Patient: Preeti RIOS Provider: Noni Gupta DPM :1945 A ge:79 Y S ex:Female Date:01/31/2025 Address:[address] [place], [place] [id number] Pcp:Saw Lockwood Subjective: * Chief Complaints: * [...] Pending * Provider: Noni Gupta DPM Date: 01/31/2025 Generated for Juli Farmer on: 02/20/2025 07:39 AM EDT
--- OUTSIDE RECORDS SUMMARY | 2025-02-20 07:39 | XMS_ITS | Clinical Summary ---
Author Organization [facility] [employer] [facility] Address [address] [place], [place] [address] Phone Care Team Providers Care Switchgear Repairer Name Role Phone Shantelle Ba MD Primary Care Provider Allergies No known active allergies Medications albuterol sulfate (ProAir RespiClick) 90 mcg/actuation aerosol powdr breath activated Inhale 1 puff by mouth 1 (one) time each day. 5 Active furosemide (LASIX) 20 mg tablet Take 1 tablet (20 mg total) by mouth 1 (one) time each day. 0 Active Symbicort 160-4.5 mcg/actuation inhaler Inhale 1 puff by mouth every 12 (twelve) hours. Active multivit-mineral s/folic acid (CENTRUM ADULTS ORAL) 1 (one) time each day. Active cholecalciferol (VITAMIN D-3) 25 mcg (1,000 [...] TABLET BY MOUTH DAILY 90 tablet 1 5 Active carvediloL (COREG) 6.25 mg tabletIndication s:Hypertension, unspecified type Take 1 tablet (6.25 mg total) by mouth 2 (two) times a day with meals. 60 each 2 5 12/14/19 26 Active ferrous sulfate 325 mg (65 mg iron) EC tablet Take 1 tablet (325 mg total) by mouth 1 (one) time each day. Do not crush, chew, or split. Active Eliquis 5 mg tablet TAKE 1 TABLET BY MOUTH TWICE DAILY 180 tablet 1 5 Active rosuvastatin (CRESTOR) 20 mg tablet TAKE 1 TABLET BY MOUTH DAILY 90 tablet 1 5 Active colchicine (COLCRYS) 0.6 mg tabletIndication s:Pericardial effusion Take 1 tablet (0.6 mg total) by mouth 1 (one) time each day. 90 each 3 5 02/17/20 25 Discontinu ed(Therapy completed) Active Problems Problem Noted Date Diagnosed Date Pacemaker 12/13/2024 Overview (12/13/2024): October 27, 2024 - sick sinus syndrome and Mobitz 1 heart block status post implantation of dual-chamber Medtronic left bundle pacemaker Dr. Rascon at [facility]; had post procedure had hypotension requiring transient pressor support; stat echocardiogram showed small pericardial effusion; hospitalization further complicated by superficial venous thrombosis of the cephalic vein at infiltrated IV site on apixaban Assessment & Plan (02/16/2025 4:04 PM EDT): Assessment & Plan (01/04/2025 1:00 PM EDT): The patient has a dual-chamber pacemaker which was placed at [facility] on 10/27/2024. During today's visit, Dr. Rascon (gear repairer) personally interrogated the patient's pacemaker and stated that her pacemaker wire parameters were noted to be normal and the device was functioning normally. Assessment & Plan (12/13/2024 4:10 PM EDT): Functioning well on last device check. Continue to monitor via [facility] device [facility]. Pericardial effusion 12/05/2024 Overview (12/13/2024): October 2024 - noted on echocardiogram to be small following pacemaker implant November 2024 - post TAVR echocardiogram showed moderate to large effusion without tampanode Assessment & Plan (02/16/2025 4:04 PM EDT): Orders: Transthoracic echocardiogram (TTE) limited with PRN contrast, bubble, strain, and 3D order panel; Future Assessment & Plan (01/04/2025 1:00 PM EDT): The patient developed a pericardial effusion after her pacemaker placement on 10/27/2024. Initially, the pericardial effusion was small in size and believed to be secondary to possible microperforation at the time of the pacemaker placement. Conservative management was pursued. During her recent hospitalization for her TAVR procedure, the pericardial effusion was noted to be moderate in size and a chest CT scan confirmed evidence of a moderate pericardial effusion with evidence of hemopericardium. Case reviewed by the cardiac surgery team at the time of the TAVR hospitalization and conservative management was recommended. The patient was discharged home. After the hospitalization, we have continue to monitor her pericardial effusion. The patient has been started on colchicine. Serial echocardiograms in the outpatient setting have shown a moderate size pericardial effusion without evidence of tamponade. The size of the pericardial effusion has remained stable on her serial echocardiograms in the outpatient setting. During today's visit, Dr. Rascon personally evaluated the patient in the examination room. He interrogated the patient's pacemaker and determined that the pacemaker wires had normal parameters. As such, he stated that there was no indication for removal or repositioning of her pacemaker wires at this point. Furthermore, an active pacemaker wire perforation was deemed to be less likely given that the effusion size has not grown on serial echocardiographic monitoring. Dr. Rascon recommended continuing therapy with colchicine and a follow-up echocardiogram in 3 months. He stated that if the effusion increases in size then he will recommend to consider a pericardiocentesis and if needed he would then consider removal or repositioning of her pacemaker wires but this will be a higher risk procedure. Dr. Rascon discussed this extensively with the patient and her daughter and they are in agreement with continuing to monitor the pericardial effusion. Orders: Transthoracic echocardiogram (TTE) complete with PRN contrast, bubble, strain, and 3D order panel; Future perflutren lipid microsphere (DEFINITY) 1.3 mL in sodium chloride 0.9% 8.7 mL injection Assessment & Plan (12/13/2024 4:10 PM EDT): Moderate to large pericardial effusion on November 2024 echocardiogram. Pulses paradoxus negative in office. Will initiate colchicine and update echocardiogram in 3 weeks. Additionally remain on aspirin and apixaban. Orders: colchicine (COLCRYS) 0.6 mg tablet; Take 1 tablet (0.6 mg total) by mouth 1 (one) time each day. Transthoracic echocardiogram (TTE) limited with PRN contrast, bubble, strain, and 3D order panel; Future Hematoma 12/05/2024 Assessment & Plan (12/13/2024 4:10 PM EDT): Noted at left femoral TAVR groin site. Will get ultrasound tomorrow at our office. Orders: Vascular US duplex pseudoaneurysm check groin left; Future CAD (coronary artery disease) 10/23/2022 Overview (12/13/2024): November 2022 - Left heart catheterization showed mild nonobstructive coronary artery disease Assessment & Plan (02/16/2025 4:04 PM EDT): Assessment & Plan (01/04/2025 1:00 PM EDT): The patient has a history of nonobstructive coronary artery disease. Currently, the patient denies any chest pain at rest or with exertion. The patient continues on secondary preventive therapy for CAD, including: statin, Imdur, and beta naty. Will continue current therapy. Orders: Comprehensive metabolic panel; Future CBC and differential; Future Lipid panel; Future Assessment & Plan (12/13/2024 4:10 PM EDT): Catheterization from 2022 showed nonobstructive disease. Echocardiogram from November 2024 showed preserved LV systolic function LVEF 60-65%. No anginal symptoms. Continue with aspirin, apixaban, rosuvastatin, fish oil, isosorbide, furosemide and metoprolol. We discussed risk reduction through lifestyle choices including healthy diet, routine exercise and weight management. Longstanding persistent atri al fibrillation (CMS/HCC V24, CMS/HCC V28) 04/17/2021 Assessment & Plan (02/16/2025 4:04 PM EDT): Orders: ECG 12 lead Assessment & Plan (01/04/2025 1:00 PM EDT): The patient has a history of longstanding persistent atrial fibrillation. The patient continues on rate control therapy with beta naty. Resting heart rate was noted to be adequate. Also, the patient has an elevated [id number] score and continues on anticoagulation therapy with apixaban. No episodes of abnormal bleeding have been noted. Will continue current therapy. Assessment & Plan (12/13/2024 4:10 PM EDT): Paroxysmal historically, but now non-longstanding persistent atrial fibrillation per last device check. Asymptomatic. CHADSVASc - 5. Continue with apixaban and metoprolol. Assessment & Plan (10/10/2024 9:36 PM EDT): Orders: ECG 12 lead Assessment & Plan (08/09/2024 4:01 PM EST): Patient has a history of paroxysmal atrial fibrillation. Metoprolol on hold as outlined below given bradycardia. She continues on Eliquis 5 mg orally twice daily. Orders: Cardiac event monitor; Future Hyperlipidemia 04/17/2021 Assessment & Plan (12/13/2024 4:10 PM EDT): Continue with rosuvastatin. Hypertension 04/17/2021 Assessment & Plan (02/16/2025 4:04 PM EDT): Assessment & Plan (01/04/2025 1:00 PM EDT): The patient has a history of arterial hypertension. The patient's blood pressure today was noted to be well controlled. We'll continue the current antihypertensive medication regimen. Assessment & Plan (12/13/2024 4:10 PM EDT): Controlled. Continue with furosemide, isosorbide, metoprolol. Morbid obesity (CMS/HCC V24, CMS/HCC V28) 2020 Assessment & Plan (12/13/2024 4:10 PM EDT): BMI 51.56. We discussed risk reduction through lifestyle choices including healthy diet, routine exercise and weight management. Consider GLP1 injection. S/p TAVR (transcatheter aort ic valve replacement), bioprosthetic 04/17/2021 Overview (12/13/2024): November 17, 2024 successful transfemoral TAVR with a Medtronic evolute 26 mm bioprosthetic valve by Dr. Acevedo at [facility]; no intraoperative complications but postoperatively her echocardiogram showed a moderate to large pericardial effusion without tamponade which was larger than the previous study and thought to be related to pacemaker placement 2 weeks prior; Eliquis and aspirin resumed and the patient was discharged home Assessment & Plan (01/04/2025 1:00 PM EDT): The patient has a history of a bioprosthetic aortic valve which was placed via a TAVR approach at [facility] on 11/17/2024. Postprocedure, there was evidence of mild to moderate perivalvular insufficiency. On her echocardiogram from 11/28/2024 she was noted to have mild perivalvular insufficiency. On the echocardiogram from 12/05/2024 and 12/27/2024, the perivalvular insufficiency was not adequately evaluated due to limited images/limited echocardiogram. Case discussed with Dr. Acevedo from the structural cardiology service who recommended continued echocardiographic monitoring as an intervention would not be needed at this point for mild to moderate perivalvular insufficiency. Orders: Transthoracic echocardiogram (TTE) complete with PRN contrast, bubble, strain, and 3D order panel; Future perflutren lipid microsphere (DEFINITY) 1.3 mL in sodium chloride 0.9% 8.7 mL injection Assessment & Plan (12/13/2024 4:10 PM EDT): Successful TAVR using 26 mm evolute Bioprosthetic valve on 11/17/24. No intra complications. See notes on pericardial effusion. The patient is having symptomatic improvement following her TAVR. Her valve is working well on exam and by symptoms. Instructed her about the need for prophylactic antibiotics prior to dental work. She is scheduled for a one month TAVR echocardiogram and then one month TAVR follow up. Referral to cardiac rehab placed. Orders: Ambulatory referral to Cardiac Rehabilitation; Future Assessment & Plan (12/13/2024 3:54 PM EDT): >>ASSESSMENT AND PLAN FOR AORTIC STENOSIS WRITTEN ON 08/09/2024 4:01 PM BY ANITRA MARTEL NP The patient has a history of severe aortic valve stenosis. In the past, the patient underwent evaluation with a left heart catheterization November 2022 which showed evidence of severe aortic stenosis, however she was seen in consultation with Dr. Acevedo in August 2023 with recommendations for watchful waiting with surveillance echocardiograms and clinical assessment every 6 months prior to proceeding with evaluation of aortic valve replacement. At her last office visit in April, it was recommended she be reevaluated by Dr. Acevedo regarding the possibility of aortic valve replacement. Unfortunately, the patient did not have a follow-up appointment scheduled. Given her recent hospitalization, recommend she be reevaluated by Dr. Acevedo regarding the possibility of the aortic valve [...] severe, symptomatic aortic stenosis. Assessment & Plan (12/13/2024 3:54 PM EDT): >>ASSESSMENT AND PLAN FOR AORTIC STENOSIS WRITTEN ON 08/26/2024 1:05 PM BY OMARI ACEVEDO MD Severe aortic stenosis with interval development of [...] office and the TAVR coordinators at the [facility] structural heart disease program. After all the studies have been completed the patient's care will be reviewed in a multidisciplinary meeting in the next steps will be determined. Assessment & Plan (12/13/2024 3:54 PM EDT): >>ASSESSMENT AND PLAN FOR AORTIC STENOSIS WRITTEN ON 10/10/2024 9:36 PM BY MANA RASCON MD Resolved Problems Problem Noted Date Diagnosed Date Resolved Date Complication of other artery following a procedure, not elsewhere classified, initial encounter 12/13/2024 12/28/2024 Assessment & Plan (12/13/2024 4:10 PM EDT): Hematoma of the left groin site. Will get ultrasound tomorrow to assess for need for intervention. Will get CBC as well. Orders: Vascular US duplex pseudoaneurysm check groin left; Future Dyspnea 09/30/2024 12/28/2024 Encounters Date Type Department Care Team Description 02/16/2025 3:30 PM EDT Office Visit [facility] [address] [place] [address] Jose M Shane MD Longstanding persistent atrial fibrillation (CMS/HCC V24, CMS/HCC V28) (Primary Dx); Primary hypertension; Coronary artery disease involving cahto coronary artery of cahto heart without angina pectoris; Pacemaker; Pericardial effusion 02/10/2025 Telephone [facility] [address] [place] [phone] Jose M Shane MD Call from Visiting Nurse 02/09/2025 7:30 AM EDT Ancillary Procedure [facility] [address] [place] [address] Pericardial effusion; S/p TAVR (transcatheter aortic valve replacement), bioprosthetic 02/09/2025 Telephone [facility] [address] [place] [phone] Jose M Shane MD Results 02/06/2025 1:30 PM EDT Ancillary Procedure [facility] [address] [place] [phone] 01/31/2025 Telephone [facility] [address] [place] [phone] Jose M Shane MD lead revision 01/25/2025 Telephone [facility] [address] [place] [address] Felipe Anaya NP Reschedule 01/09/2025 Telephone [facility] [address] [place] [address] Jose M Shane MD Medication Reaction 01/05/2025 [address] [facility] [address] [place] [address] Linda Rogers NP 01/05/2025 Telephone [facility] [address] [place] [address] Linda Rogers NP 01/03/2025 Telephone [facility] [address] [place] [address] Jose M Shane MD Call from Visiting Nurse (Call from Visiting Nurse) 12/28/2024 1:30 PM EDT Office Visit [facility] [address] [place] [phone] Jose M Shane MD Coronary artery disease involving cahto coronary artery of cahto heart without angina pectoris (Primary Dx); Longstanding persistent atrial fibrillation (CMS/HCC V24, CMS/HCC V28); Primary hypertension; Pacemaker; Pericardial effusion; S/p TAVR (transcatheter aortic valve replacement), bioprosthetic 12/27/2024 8:30 AM EDT Ancillary Procedure [facility] [address] [place] [phone] Pericardial effusion 12/20/2024 Telephone [facility] [address] [place] [phone] Felipe Anaya NP referral 12/13/2024 Telephone [facility] [address] [place] [phone] Jose M Shane MD Call from Visiting Nurse 12/06/2024 11:30 AM EDT Ancillary Procedure [facility] [address] [place] [phone] Hematoma; Complication of other artery following a procedure, not elsewhere classified, initial encounter 12/06/2024 Telephone [facility] [address] [place] [address] Omari Acevedo MD Labs Only 12/05/2024 2:10 PM EDT Office Visit [facility] [address] [place] [phone] Felipe Anaya NP Pericardial effusion (Primary Dx); Hematoma; Complication of other artery following a procedure, not elsewhere classified, initial encounter; S/p TAVR (transcatheter aortic valve replacement), bioprosthetic; Hyperlipidemia, unspecified hyperlipidemia type; Pacemaker; Hypertension, unspecified type; Longstanding persistent atrial fibrillation ([facility] V24, [facility] V28); Coronary artery disease involving cahto coronary artery of cahto heart without angina pectoris; Morbid obesity ([facility] V24, [facility] V28) 12/05/2024 9:00 AM EDT Ancillary Procedure [facility] [address] [place] [address] Pericardial effusion 11/28/2024 12:30 PM EDT Ancillary Procedure [facility] [address] [place] [address] Nonrheumatic aortic valve stenosis 11/28/[address] [place] [address] Jose M Shane MD 11/22/[address] [place] [address] Jose M Shane MD Post-op Problem from Last 3 Months Surgical History Surgery [...] Sign Reading Time Taken Comments Blood Pressure 126/60 02/16/2025 3:19 PM EDT Pulse 82 02/16/2025 3:19 PM EDT Temperature - - Respiratory Rate - - Oxygen Saturation 95% 02/16/2025 3:19 PM EDT Inhaled Oxygen Concentration - - Weight 110 kg (243 lb) 02/16/2025 3:19 PM EDT Height 152.4 cm (5') 02/16/2025 3:19 PM EDT Body Mass Index 47.46 02/16/2025 3:19 PM EDT Plan of Treatment Upcoming Encounters Date Type Department Care Team (Late st Contact Info) Description 03/14/2025 10:30 AM EDT Ancillary Procedure [facility] [address] [place] [address] 04/26/2025 11:20 AM EDT Office Visit [facility] [address] [place] [phone] Jose M Shane MD [address] [place] [address] [address] [place] [address] 11/15/2025 3:30 PM EDT Ancillary Procedure [facility] [address] [place] [phone] Health Maintenance Due Date Last Done Comments DTaP,Tdap,and Td Vaccines (1 - Tdap) 1964 Falls Risk Assessment 07/13/2022 Medicare Annual Wellness Visit 07/13/2022 Osteoporosis Screening (Bone Density Screening) 07/13/2022 Social Influencers of Health Screening 07/13/2022 Zoster Vaccines (2 of 2) 07/22/2024 05/27/2024 Depression Screening 08/03/2024 COVID-19 Vaccine (7 - Moderna risk season) 2024 04/25/2024, 04/19/2023, 12/02/2021, Additional history exists Influenza Vaccine (#1) 2025 , 04/19/2023, 04/28/2022, Additional history exists Hypertension/CHF/CAD Annual BMP Blood Test 12/28/2025 12/28/2024 Cholesterol Screening (Lipid Panel) 12/28/2029 12/28/2024 Pneumococcal Vaccine: 50+ Years Completed 06/12/2022, 04/21/2019 RSV Immunization Adult Patients Completed 04/25/2024 HIB [...] on patient's age to complete this topic Medical Devices Implanted Type Area Furnace Hand Device Identifier Shelf Expiration Date Model / Serial / Lot Medt-Card Janette Xt Dr Bill [id number] Implanted: (Quantity not on file) Cardiac Pacemaker [employer] - CARDIAC RHYTH-CRDM JANETTE XT DR BILL [id number] / [id number] / Medt-Card Janette Xt Dr Bill [id number] Implanted: (Quantity not on file) Cardiac Pacemaker [employer] - CARDIAC RHYTH-CRDM JANETTE XT DR BILL / [id number] / Procedures Procedure Name Priority Date/Time Associated Diagnosis Comments ECG 12-LEAD Routine 02/16/2025 3:31 PM EDT Longstanding persistent atrial fibrillation (CMS/HCC V24, CMS/HCC V28) TRANSTHORACIC ECHOCARDIOGRAM (TTE) COMPLETE Routine 02/09/2025 8:04 AM EDT Pericardial effusion S/p TAVR (transcatheter aortic valve replacement), bioprosthetic CARDIAC DEVICE CHECK- REMOTE- MURJ Routine 02/06/2025 1:28 PM EDT CBC WITH AUTO DIFFERENTIAL STAT 12/28/2024 2:31 PM EDT Coronary artery disease involving cahto coronary artery of cahto heart without angina pectoris LIPID PANEL STAT 12/28/2024 2:31 PM EDT Coronary artery disease involving cahto coronary artery of cahto heart without angina pectoris CBC AND DIFFERENTIAL STAT 12/28/2024 2:31 PM EDT Coronary artery disease involving cahto coronary artery of cahto heart without angina pectoris COMPREHENSIVE METABOLIC PANEL STAT 12/28/2024 2:31 PM EDT Coronary artery disease involving cahto coronary artery of cahto heart without angina pectoris TRANSTHORACIC ECHOCARDIOGRAM (TTE) LIMITED COLOR FLOW & DOPPLER Routine 12/27/2024 9:05 AM EDT Pericardial effusion VAS US DUPLEX PSEUDOANEURYSM CHECK GROIN LEFT Routine 12/06/2024 11:19 AM EDT Hematoma Complication of other artery following a procedure, not elsewhere classified, initial encounter TRANSTHORACIC ECHOCARDIOGRAM (TTE) LIMITED COLOR FLOW & DOPPLER Routine 12/05/2024 9:22 AM EDT Pericardial effusion TRANSTHORACIC ECHOCARDIOGRAM (TTE) COMPLETE Routine 11/28/2024 1:33 PM EDT Nonrheumatic aortic valve stenosis from Last 3 Months Results * TRANSTHORACIC ECHOCARDIOGRAM (TTE) COMPLETE (02/09/2025 8:04 AM EDT) Left Atrium Minor Marydel 7.0 cm CV PACS Left Atrium Major Marydel 7.0 cm CV PACS LA Area Sys (A2C) 30 cm2 CV PACS LA Area Sys (A4C) 25 cm2 CV PACS LA Volume (BP) 86 mL CV PACS RA Area 17.5 cm2 CV PACS RA 2D Volume 43 mL CV PACS AV Regurgitation PHT 386 ms CV PACS AR Max Velocity 4.6 m/s CV PACS AV Peak Gradient 20 mmHg CV PACS AV Peak Alfred 2.3 m/s CV PACS AV Mean Gradient 11 mmHg CV PACS Ao VTI 49.5 cm CV PACS AV Area Continuity Equation 1.3 cm2 CV PACS AV Area Peak Velocity 1.6 cm2 CV PACS Ascending Aorta 3.3 cm CV PACS IVSD 0.9 0.6 - 0.9 cm CV PACS LVIDD 4.7 3.8 - 5.2 cm CV PACS LVIDS 3.1 2.2 - 3.5 cm CV PACS LVOT Diameter 2.0 cm CV PACS LVOT Mean Alfred 0.7 m/s CV PACS LVOT Mean Grad 2 mmHg CV PACS LVOT Peak VTI 20.3 cm CV PACS LVOT Peak Alfred 1.1 m/s CV PACS LVOT Peak Gradient 5 mmHg CV PACS LVPWD 0.9 0.6 - 0.9 cm CV PACS MV E' Tissue Velocity Lateral 7 cm/s CV PACS MV E' Tissue Velocity Septal 8 cm/s CV PACS LVOT Area 3.1 cm2 CV PACS LVOT Stroke Volume 64 mL CV PACS MV Deceleration Dixon 9.8 m/s2 CV PACS E Wave Deceleration Time 168 119 - 242 ms CV PACS MV PHT 49 ms CV PACS MV Peak E Alfred 1.65 m/s CV PACS MV Mean Gradient 6 mmHg CV PACS MV VTI 39.9 cm CV PACS Mitral Valve Max Velocity 1.9 m/s CV PACS MV Peak Gradient 15 mmHg CV PACS MV Area PHT 4.5 cm2 CV PACS MV Area Continuity Equation 1.6 cm2 CV PACS RV Diastolic Basal Dimension 3.2 2.5 - 4.1 cm CV PACS RV S' 8 cm/s CV PACS TAPSE 11 mm CV PACS TR Peak Velocity 3.04 m/s CV PACS TR Peak Gradient 37 mmHg CV PACS E/E' Ratio Septal 21 CV PACS E/E' Ratio Averaged 22 CV PACS LVOT Stroke Index 31 mL/m2 CV PACS Relative Wall Thickness ratio 0.38 CV PACS LVOT:AV VTI Index 0.41 CV PACS FS 34 % CV PACS LV Mass 2D 143 g CV PACS Ascending Aorta Index 1.62 cm/m2 CV PACS MV VTI:LVOT VTI ratio 2.0 CV PACS LVOT flow 220 mL/s CV PACS RA 2D Volume Index 21 mL/m2 CV PACS KELLY Index (VTI) 0.63 cm2/m2 CV PACS KELLY Index (Pk Alfred) 0.78 cm2/m2 CV PACS LVIDD Index 2.30 cm/m2 CV PACS LVIDS Index 1.52 cm/m2 CV PACS AV Velocity Ratio 0.48 CV PACS E/E' Ratio Lateral 24 CV PACS LA Volume Index (BP) 42 mL/m2 CV PACS LV Mass Index 2D 70 g/m2 CV PACS BSA 2.18 m2 CV PACS Right Ventricular Peak Systolic Pressure 40 mmHg CV PACS Est. RA Pressure 3 mmHg CV PACS AV Acceleration Time 48 ms CV PACS LV Ejection Time 330 ms CV PACS Anatomical Region Laterality Modality Ultrasound Narrative 02/10/2025 4:59 PM EDT Left ventricle cavity size is normal. Left ventricular systolic function is in the normal range with an ejection fraction of 55-60%. No regional LV wall motion abnormalities noted. Right Ventricle: Right ventricle cavity appears normal. Systolic function is reduced. A pacer wire is present in the right ventricle. Aortic Valve: There is a 26 mm TAVR bioprosthetic valve implanted on 11/17/2024. No evidence of bioprosthetic aortic valve stenosis. No evidence of central bioprosthetic aortic valve regurgitation. There is evidence of moderate paravalvular bioprosthetic aortic valve regurgitation. Mitral Valve: There is mild regurgitation. There is mild stenosis. Tricuspid Valve: There is mild regurgitation. The right ventricular systolic pressure is mildly elevated. The RVSP is estimated at 40 mmHg. Pericardium: There is a trivial pericardial effusion. When compared to the echocardiogram done at [facility] on 01/04/2025: The size of the pericardial effusion has decreased significantly (the patient underwent a pericardiocentesis on 01/25/2025). Of note, the post pericardiocentesis chest CT scan done at [facility] on 01/27/2025 showed a trivial pericardial effusion which seems to be unchanged on the current study. Left Ventricle Left ventricle cavity size is normal. Wall thickness is at upper limits of normal. Systolic function is normal with an ejection fraction of 55-60%. There are no regional LV wall motion abnormalities. Unable to assess diastolic function due to underlying arrhythmia. Right Ventricle Right ventricle cavity appears normal. Systolic function is reduced. A pacer wire is present in the right ventricle. Left Atrium Left atrium cavity is moderately dilated. Right Atrium Right atrium cavity is normal. A pacer wire is present in the right atrium. IVC/SVC Inferior vena cava is dilated. RA pressures is estimated to be 3 mmHg (IVC diameter <21 mm and decreases >50% during inspiration). Mitral Valve The leaflets are thickened. There is moderate annular calcification. There is mild regurgitation. There is mild stenosis. Tricuspid Valve The leaflets exhibit normal excursion. There is mild regurgitation. There is no evidence of tricuspid valve stenosis. The right ventricular systolic pressure is mildly elevated. The RVSP is estimated at 40 mmHg. Aortic Valve The valve has been surgically replaced. There is a 26 mm TAVR bioprosthetic valve implanted on 11/17/2024. The prosthetic valve appears to be functioning normally. There is moderate paravalvular regurgitation. No evidence of central bioprosthetic aortic valve regurgitation. The gradient recorded across the prosthetic aortic valve is within the expected range. The aortic valve peak velocity is 2.3 m/s. The velocity ratio is 0.48. The mean gradient is 11 mmHg. The peak gradient is 20 mmHg. The acceleration time is 48 ms. The AT/ET ratio is 0.15. Pulmonic Valve Pulmonic valve structure is normal. There is trace pulmonic valve regurgitation. There is no evidence of pulmonic valve stenosis. Ascending Aorta The ascending aorta is normal in size. Pericardium There is an anterior fat pad. There is a trivial pericardial effusion. Study Details Overall the study quality was adequate. Study was difficult due to: procedure performed with the patient in a supine position. Jose M Shane MD CV ECHO PROCEDURES Fin al Result * Cardiac device check - Remote- MURJ (02/06/2025 1:28 PM EDT) Pathologist [facility] Date Time Interrogation Session [id number] CV DEVICE CHECK Type Interrogation Session Remote CV DEVICE CHECK Implantable Pulse Generator Furnace Hand MDT CV DEVICE CHECK Implantable Pulse Generator Type IPG CV DEVICE CHECK Implantable Pulse Generator Model [employer] XT DR BILL [id number] CV DEVICE CHECK Implantable Pulse Generator Serial Number [id number] CV DEVICE CHECK Implantable Pulse Generator Implant Date 20241027 CV DEVICE CHECK Battery Remaining Longevity 172.0 CV DEVICE CHECK Battery Voltage 3.200 CV D EVICE CHECK Battery CODING MACHINE OPERATOR Trigger 2.625 CV DEVICE CHECK Battery Status Middle of Service CV DEVICE CHECK Scott Statistic RA Percent Paced 0.17 CV DEVICE CHECK Scott Statistic RV Percent Paced 18.30 CV DEVICE CHECK Atrial Tachy Statistic AT/AF [place] Percent 100.00 CV DEVICE CHECK Lead Channel Sensing Intrinsic Amplitude 0.375 CV DEVICE CHECK Lead Channel Setting Sensing Sensitivity 0.15 CV DEVICE CHECK Lead Channel Impedance Value 532 CV DEVICE CHECK Lead Channel Setting Pacing Amplitude 3.500 CV DEVICE CHECK Lead Channel Setting Pacing Pulse Width 0.4 CV DEVICE CHECK Lead Channel Sensing Intrinsic Amplitude 7.500 CV DEVICE CHECK Lead Channel Setting Sensing Sensitivity 0.90 CV DEVICE CHECK Lead Channel Impedance Value 494 CV DEVICE CHECK Lead Channel Pacing Threshold Amplitude 0.750 CV DEVICE CHECK Lead Channel Pacing Threshold Pulse Width 0.4 CV DEVICE CHECK Lead Channel RV Pacing Threshold Date 2025-02-01 CV DEVICE CHECK Lead Channel Setting Pacing Amplitude 2.000 CV DEVICE CHECK Lead Channel Setting Pacing Pulse Width 0.4 CV DEVICE CHECK Scott Setting Mode (NBG Code) AAIR<=>DDDR CV DEVICE CHECK Scott Setting Lower Rate Limit 60 CV DEVICE CHECK Scott Setting AT Mode Switch Rate 171 CV DEVICE CHECK Scott Setting Maximum Tracking Rate 130 CV DEVICE CHECK Scott Setting Maximum Sensor Rate 130 CV DEVICE CHECK Scott Setting PAV Delay 180 CV DEVICE CHECK Scott Setting TERRELL Delay 150 CV DEVICE CHECK Zone Setting Type Category AT/AF CV DEVICE CHECK Rate 171 CV DEVICE CHECK Therapies Some Rx Off CV DEVIC E CHECK Zone Setting Status Monitor CV DEVICE CHECK Zone ID 2 CV DEVICE CHECK Zone Setting Type Category VT CV DEVICE CHECK Rate 150 CV DEVICE CHECK Zone Setting Status ENABLED CV DEVICE CHECK Zone ID 6 CV DEVICE CHECK Date of Service 2025-02-24 CV DEVICE CHECK Anatomical Region Laterality Modality Device Interroga tion 02/01/2025 11:1 9 PM EDT Impressions 02/06/2025 5:45 AM EDT Normal Remote: No Events * Normal Device Function * Alerts or events: None * Battery: OK, 14.33 yrs * Sensing, impedance and thresholds reviewed * Programmed parameters reviewed * Presenting rhythm reviewed * Heart Rate Histograms reviewed * No significant changes noted Narrative Procedure Note Mana Rascon MD - 02/06/2025 IMPRESSION: Normal Remote: No Events * Normal Device Function * Alerts or events: None * Battery: OK, 14.33 yrs * Sensing, impedance and thresholds reviewed * Programmed parameters reviewed * Presenting rhythm reviewed * Heart Rate Histograms reviewed * No significant changes noted Mana Rascon MD CV IMPLANTABLE CARDIAC DEV ICE PROCEDURES Final Result * (ABNORMAL) CBC auto differential (12/28/2024 2:31 PM EDT) [facility] WBC 9.2 3.4 - 10.8 x10E3/uL [facility] RBC 4.41 3.77 - 5.28 x10E6/uL [facility] 1 Hemoglobin 11.9 11.1 - 15.9 g/dL [facility] 1 Hematocrit 39.6 34.0 - 46.6 % [facility] 1 MCV 90 79 - 97 fL [facility] 1 MCH 27.0 26.6 - 33.0 pg [facility] 1 MCHC 30.1(L) 31.5 - 35.7 g/dL [facility] 1 RDW 14.4 11.7 - 15.4 % [facility] 1 Platelets 219 150 - 450 x10E3/uL [facility] 1 Neutrophils 67 Not Estab. % [facility] 1 Lymphocytes 20 Not Estab. % [facility] 1 Monocytes 10 Not Estab. % [facility] 1 Eosinophils 3 Not Estab. % [facility] 1 Basophils 0 Not Estab. % [facility] 1 Neutrophils Absolute 6.2 1.4 - 7.0 x10E3/uL [facility] 1 Lymphocytes Absolute 1.8 0.7 - 3.1 x10E3/uL [facility] 1 Monocytes Absolute 0.9 0.1 - 0.9 x10E3/uL [facility] 1 Eosinophils Absolute 0.3 0.0 - 0.4 x10E3/uL [facility] 1 Basophils Absolute 0.0 0.0 - 0.2 x10E3/uL [facility] 1 Immature Granulocytes Relative 0 Not Estab. % [facility] 1 Immature Grans (Abs) 0.0 0.0 - 0.1 x10E3/uL [facility] 1 Blood Venous blood specimen / Unknown 12/28/2024 2:31 PM EDT 12/28/2024 Narrative [facility] 1 - 12/29/2024 6:07 AM EDT Performed at: [address] [id number] Transfer Agent: Maria De Jesus Savage MD, Phone: [phone] Jose M Shane MD LAB BLOOD ORDERABLES F inal Result [facility] * (ABNORMAL) Lipid panel (12/28/2024 2:31 PM EDT) Cholesterol Total 91(L) 100 - 199 mg/dL [facility] 1 Triglycerides 173(H) 0 - 149 mg/dL [facility] 1 HDL Cholesterol 32(L) >39 mg/dL [facility] 1 VLDL Cholesterol Calculated 29 5 - 40 mg/dL [facility] 1 LDL Chol Calc (NIH) 30 0 - 99 mg/dL [facility] 1 Blood Venous blood specimen / Unknown 12/28/2024 2:31 PM EDT 12/28/2024 Narrative [facility] 1 - 12/29/2024 6:07 AM EDT Performed at: 01 - [address] [id number] Transfer Agent: Maria De Jesus Savage MD, Phone: [phone] Jose M Shane MD LAB BLOOD ORDERABLES F inal Result [facility] * (ABNORMAL) Comprehensive metabolic panel (12/28/2024 2:31 PM EDT) Glucose 102(H) 70 - 99 mg/dL [facility] 1 Blood Urea Nitrogen (BUN) 29(H) 8 - 27 mg/dL [facility] 1 Creatinine 1.13(H) 0.57 - 1.00 mg/dL [facility] 1 eGFR 49(L) >59 mL/min/1. 73 [facility] 1 BUN/Creatinine Ratio 26 12 - 28 [facility] 1 Sodium 144 134 - 144 mmol/L [facility] 1 Potassium 5.1 3.5 - 5.2 mmol/L [facility] 1 Chloride 103 96 - 106 mmol/L [facility] 1 Carbon Dioxide 21 20 - 29 mmol/L [facility] 1 Calcium 9.7 8.7 - 10.3 mg/dL [facility] 1 Protein Total 6.6 6.0 - 8.5 g/dL [facility] 1 Albumin 4.4 3.8 - 4.8 g/dL [facility] 1 Globulin Total 2.2 1.5 - 4.5 g/dL [facility] 1 Bilirubin Total 0.4 0.0 - 1.2 mg/dL [facility] 1 Alkaline Phosphatase 62 44 - 121 IU/L [facility] 1 Aspartate aminotransferase (AST) 20 0 - 40 IU/L [facility] 1 Alanine Aminotransferase (ALT) 13 0 - 32 IU/L [facility] 1 Blood Venous blood specimen / Unknown 12/28/2024 2:31 PM EDT 12/28/2024 Narrative [facility] 1 - 12/29/2024 6:07 AM EDT Performed at: [address] [id number] Transfer Agent: Maria De Jesus Savage MD, Phone: [phone] us Jose M Shane MD LAB BLOOD ORDERABLES F inal Result [facility] * TRANSTHORACIC ECHOCARDIOGRAM (TTE) LIMITED COLOR FLOW & DOPPLER (12/27/2024 9:05 AM EDT) Left Atrium Minor Marydel 7.3 cm CV PACS Left Atrium Major Marydel 7.3 cm CV PACS LA Area Sys (A2C) 31 cm2 CV PACS LA Area Sys (A4C) 31 cm2 CV PACS LA Volume (BP) 107 mL CV PACS RA Area 18.9 cm2 CV PACS RA 2D Volume 50 mL CV PACS Inferior Vena Cava Diameter At Expiration 1.8 cm CV PACS Inferior Vena Cava Diameter At Inspiration 2.5 cm CV PACS RV Diastolic Basal Dimension 3.9 2.5 - 4.1 cm CV PACS TR Peak Velocity 2.35 m/s CV PACS TR Peak Gradient 22 mmHg CV PACS BSA 2.29 m2 CV PACS LA Volume Index (BP) 50 mL/m2 CV PACS RA 2D Volume Index 23 15 - 27 mL/m2 CV PACS IVC Inspiration Index 1.16 cm/m2 CV PACS IVC Expiration Index 0.84 cm/m2 CV PACS Anatomical Region Laterality Modality Ultrasound Narrative 12/28/2024 1:19 PM EDT Limited study for evaluation of a pericardial effusion. Left ventricle cavity size is normal. Left ventricular systolic function is in the normal range with an ejection fraction of 55-60%. No regional LV wall motion abnormalities noted. Abnormal left ventricular septal motion consistent with right ventricular pacing. Aortic Valve: A TAVR bioprosthetic aortic valve is present. There is trace regurgitation on limited views. Doppler interrogation for prosthetic aortic valve gradients was not completed on the current study. Nevertheless, multiple recent echocardiograms have not shown any evidence of significant bioprosthetic aortic valve stenosis. Pericardium: There is a moderate pericardial effusion. There is no echocardiographic evidence of tamponade. No significant changes when compared to the prior echocardiogram from 12/05/2024. Left Ventricle Left ventricle cavity size is normal. Wall thickness is normal. Systolic function is normal with an ejection fraction of 55-60%. There are no regional LV wall motion abnormalities. There is abnormal septal motion consistent with right ventricular pacing. Right Ventricle Right ventricle cavity appears normal. The right ventricular function appears to be grossly normal. A pacer wire is present in the right ventricle. Left Atrium Left atrium cavity is severely dilated. Right Atrium Right atrium cavity is normal. A pacer wire is present in the right atrium. Mitral Valve The leaflets are mildly thickened. There is moderate annular calcification. There is trace regurgitation. There appears to be mild mitral valve stenosis. Tricuspid Valve Tricuspid valve structure is normal. There is trace regurgitation. There is no evidence of tricuspid valve stenosis. Aortic Valve The valve has been surgically replaced. There is a TAVR bioprosthetic valve. There is trace regurgitation on limited views. Doppler interrogation for prosthetic aortic valve gradients was not completed on the current study. Nevertheless, multiple recent echocardiograms have not shown any evidence of significant bioprosthetic aortic valve stenosis. Pulmonic Valve The pulmonic valve was not assessed. Ascending Aorta The aorta was not assessed. Pericardium There is an anterior fat pad. There is a moderate pericardial effusion. There is no echocardiographic evidence of tamponade. Evidence against tamponade includes: no right ventricular diastolic collapse, no right ventricular compression, no right atrial inversion and no excessive respiratory variation. Study Details Overall the study quality was technically difficult. us Felipe Anaya GLASS TUBE BENDER CV ECHO PROCEDURES Final Re sult * Vascular US duplex pseudoaneurysm check groin left (12/06/2024 11:19 AM EDT) [facility] Left profunda sys PSV 113 cm/s CV VAS LAB Left super femoral prox sys PSV 143 cm/s CV VAS LAB Anatomical Region Laterality Modality Vascular, Abdomen Ultrasound Narrative 12/06/2024 12:47 PM EDT 1. Limited arterial duplex to rule out the presence of a pseudoaneurysm after a TAVR placement via the left common femoral artery approach. 2. There is a large hematoma in the left groin extending to the left hip and mid pelvis measuring 5.26 cm x 9.59 cm. No apparent active flow into the hematoma. 3. No evidence of left femoral artery pseudoaneurysm. 4. No significant stenosis in the common femoral artery, and superficial femoral artery. 5. No evidence of a deep vein thrombosis in the left common femoral vein, profunda femoral vein, and left proximal superficial femoral vein Left Pseudoaneurysm Soft tissue density in the left is without blood flow and is consistent with a large hematoma s/p TAVR measuring 5.26cm AP and greater than 9.59cm. It extends from the patient's left hip to mid pelvis. The area is a large hard palpable lump with a mild compressibility to the hematoma. No evidence of deep vein thrombosis in the left common femoral, deep femoral, and proximal femoral veins of the left leg. The vessels showed compressibility. Interrogation showed phasic and spontaneous Doppler signals. The left common femoral, deep femoral, and proximal superficial femoral arteries are patent without stenosis or pseudoaneurysm. There is an accessory artery tracking adjacent to the hematoma. No flow seen within the hematoma. Drilling Plant Operator Details A orourke scale, color and doppler analysis ultrasound was performed. During the study longitudinal and transverse views were obtained. Pulsed wave doppler was performed. FelipeBrii Anaya GLASS TUBE BENDER CV VASCULAR PROCEDURES Clarice l Result * TRANSTHORACIC ECHOCARDIOGRAM (TTE) LIMITED COLOR FLOW & DOPPLER (12/05/2024 9:22 AM EDT) [facility] TR Peak Velocity 2.87 m/s CV PACS TR Peak Gradient 33 mmHg CV PACS BSA 2.29 m2 CV PACS Right Ventricular Peak Systolic Pressure 41 mmHg CV PACS Est. RA Pressure 8 mmHg CV PACS AV Peak Alfred 2.1 m/s CV PACS AV Mean Gradient 9 mmHg CV PACS AV Peak Gradient 17 mmHg CV PACS Anatomical Region Laterality Modality Ultrasound Narrative 12/05/2024 1:26 PM EDT Technically difficult study. Limited study for evaluation of pericardial effusion. Left ventricle cavity size is normal. Left ventricular systolic function is in the normal range with an ejection fraction of 55-60%. Aortic Valve: The valve has been surgically replaced. There is a TAVR bioprosthetic valve implanted on 11/17/2024. The prosthetic valve appears to be functioning normally. Aortic regurgitation not assessed due to limited exam. There is no evidence of aortic valve stenosis. Tricuspid Valve: There is mild regurgitation. The right ventricular systolic pressure is mildly elevated. Estimated RA pressure is 8 mmHg. The RVSP is estimated at 41 mmHg. Pericardium: There is a moderate fibrinous circumferential pericardial effusion. There is no echocardiographic evidence of tamponade. Evidence against tamponade includes: no right ventricular diastolic collapse, no right ventricular compression, no right atrial inversion and no excessive respiratory variation (on Doppler measurement of the mitral valve inflow). When compared to the echocardiogram done on 11/28/2024: No significant change in the size of the pericardial effusion. Left Ventricle Left ventricle cavity size is normal. There is mild concentric hypertrophy. Systolic function is normal with an ejection fraction of 55-60%. Regional LV wall motion cannot be accurately assessed. Unable to assess diastolic function. Right Ventricle The right ventricle appears to be grossly normal in size, on limited views Right ventricular function appears to be grossly normal on limited views Left Atrium Left atrium size is dilated on limited views. Right Atrium Right atrium appears to be grossly normal in size and limited views. IVC/SVC RA pressures is estimated to be 8 mmHg (IVC diameter <21 mm and decreases <50% during inspiration). Mitral Valve The mitral valve was not assessed. The leaflets are mildly thickened. There is moderate annular calcification. Tricuspid Valve Tricuspid valve structure is normal. There is mild regurgitation. There is no evidence of tricuspid valve stenosis. The right ventricular systolic pressure is mildly elevated. Estimated RA pressure is 8 mmHg. The RVSP is estimated at 41 mmHg. Aortic Valve The valve has been surgically replaced. There is a TAVR bioprosthetic valve implanted on 11/17/2024. The prosthetic valve appears to be functioning normally. Aortic regurgitation not assessed due to limited exam. There is no evidence of aortic valve stenosis. Pulmonic Valve Pulmonic valve not assessed due to limited exam. Ascending Aorta The aorta was not assessed. Pericardium Pericardium appears normal. There is a moderate fibrinous circumferential pericardial effusion. There is no echocardiographic evidence of tamponade. Evidence against tamponade includes: no right ventricular diastolic collapse, no right ventricular compression, no right atrial inversion and no excessive respiratory variation (on Doppler measurement of the mitral valve inflow). Study Details Overall the study quality was technically difficult. Study was difficult due to: patient body habitus and procedure performed with the patient in a supine position. us Jose M Shane MD CV ECHO PROCEDURES Fin al Result * (ABNORMAL) TRANSTHORACIC ECHOCARDIOGRAM (TTE) COMPLETE (11/28/2024 1:33 PM EDT) Left Atrium Minor Marydel 7.3 cm CV PACS Left Atrium Major Marydel 6.6 cm CV PACS LA Area Sys (A2C) 25 cm2 CV PACS LA Area Sys (A4C) 32 cm2 CV PACS LA Volume (BP) 94 mL CV PACS RA Area 16.9 cm2 CV PACS RA 2D Volume 41 mL CV PACS AV Mean Gradient 7 mmHg CV PACS Ao VTI 41.1 cm CV PACS AV Peak Alfred 2.1 m/s CV PACS AV Peak Gradient 18 mmHg CV PACS IVC Proximal 2.6 cm CV PACS IVC Proximal 1.8 cm CV PACS IVSD 1.1(A) 0.6 - 0.9 cm CV PACS LVIDD 4.9 3.8 - 5.2 cm CV PACS LVIDS 2.8 2.2 - 3.5 cm CV PACS LVOT Mean Alfred 0.8 m/s CV PACS LVOT Mean Grad 3 mmHg CV PACS LVOT Peak VTI 26.2 cm CV PACS LVOT Peak Alrfed 1.5 m/s CV PACS LVOT Peak Gradient 9 mmHg CV PACS LVPWD 1.2(A) 0.6 - 0.9 cm CV PACS MV Deceleration Dixon 5.3 m/s2 CV PACS MV PHT 108 ms CV PACS MV Mean Gradient 3 mmHg CV PACS MV VTI 46.2 cm CV PACS Mitral Valve Max Velocity 2.1 m/s CV PACS MV Peak Gradient 17 mmHg CV PACS MV Area PHT 2.0 cm2 CV PACS PV Acceleration Time 88 ms CV PACS RV Diastolic Basal Dimension 3.2 2.5 - 4.1 cm CV PACS RV S' 13 cm/s CV PACS TAPSE 15 mm CV PACS TR Peak Velocity 3.20 m/s CV PACS TR Peak Gradient 41 mmHg CV PACS Relative Wall Thickness ratio 0.48(A) 0.22 - 0.42 CV PACS LVOT:AV VTI Index 0.64 CV PACS FS 43 % CV PACS LV Mass 2D 209(A) 66 - 150 g CV PACS MV VTI:LVOT VTI ratio 1.8 CV PACS AV Velocity Ratio 0.70 CV PACS BSA 2.29 m2 CV PACS LA Volume Index (BP) 40 mL/m2 CV PACS LVIDD Index 2.30 cm/m2 CV PACS LVIDS Index 1.31 cm/m2 CV PACS LV Mass Index 2D 100(A) 44 - 88 g/m2 CV PACS RA 2D Volume Index 19 15 - 27 mL/m2 CV PACS Right Ventricular Peak Systolic Pressure 56 mmHg CV PACS Est. RA Pressure 15 mmHg CV PACS RV Free Wall Peak S' 13 cm/s CV PACS RA Major Marydel 5.6 cm CV PACS RA Major Marydel Index 2.6 2.2 - 2.8 cm/m2 CV PACS Inferior Vena Cava Diameter At Inspiration 1.8 cm CV PACS IVC Inspiration Index 0.85 cm/m2 CV PACS Inferior Vena Cava Diameter At Expiration 2.6 cm CV PACS IVC Expiration Index 1.22 cm/m2 CV PACS Anatomical Region Laterality Modality Ultrasound Narrative 11/28/2024 3:15 PM EDT Technically difficult study Left Ventricle: There is mild concentric hypertrophy. Systolic function is normal with an ejection fraction of 55-60%. There are no regional LV wall motion abnormalities. There is abnormal septal motion consistent with right ventricular pacing. Right ventricle cavity is normal. Right ventricular systolic function is normal. Aortic Valve: The valve has been surgically replaced. There is a 26 mm TAVR bioprosthetic valve implanted on 11/17/2024. There is mild paravalvular regurgitation. No evidence of bioprosthetic aortic valve stenosis. The gradient recorded across the prosthetic aortic valve is within the expected range. Mitral Valve: There is mild regurgitation. There is mild stenosis. MV valve area P 1/2 method is 2.0 cm2. MV mean gradient is 3 mmHg. A pacer wire is present in the right atrium and ventricle. Tricuspid Valve: There is mild regurgitation. The right ventricular systolic pressure is moderately elevated. Pericardium: There is a moderate fibrinous circumferential pericardial effusion. There is no echocardiographic evidence of tamponade. Evidence against tamponade includes: no right ventricular diastolic collapse, no right ventricular compression and no right atrial inversion. Left Ventricle Left ventricle cavity size is normal. There is mild concentric hypertrophy. Systolic function is normal with an ejection fraction of 55-60%. There are no regional LV wall motion abnormalities. Unable to assess diastolic function due to mitral annular calcification. There is abnormal septal motion consistent with right ventricular pacing. Right Ventricle Right ventricle cavity appears normal. Systolic function is normal. A pacer wire is present in the right ventricle. Left Atrium Left atrium cavity is mildly dilated. Right Atrium Right atrium cavity is normal. A pacer wire is present in the right atrium. IVC/SVC RA pressures is estimated to be 15 mmHg (IVC diameter >21 mm and decreases <50% during inspiration). Mitral Valve The leaflets are moderately thickened. There is moderate annular calcification. There is mild regurgitation. There is mild stenosis. MV valve area P 1/2 method is 2.0 cm2. MV mean gradient is 3 mmHg. Tricuspid Valve Tricuspid valve structure is normal. There is mild regurgitation. There is no evidence of tricuspid valve stenosis. The right ventricular systolic pressure is moderately elevated. Aortic Valve The valve has been surgically replaced. There is a 26 mm TAVR bioprosthetic valve implanted on 11/17/2024. The prosthetic valve appears to be functioning normally. There is mild paravalvular regurgitation. No evidence of bioprosthetic aortic valve stenosis. The gradient recorded across the prosthetic aortic valve is within the expected range. Pulmonic Valve The pulmonic valve was not well visualized. There is no regurgitation or stenosis. Pericardium There is a moderate fibrinous circumferential pericardial effusion. There is no echocardiographic evidence of tamponade. Evidence against tamponade includes: no right ventricular diastolic collapse, no right ventricular compression and no right atrial inversion. Study Details Overall the study quality was technically difficult. us Omari Acevedo MD CV ECHO PROCEDURES Final Result from Last 3 Months Insurance [employer]ARE Care Teams Switchgear Repairer Relationship Specialty Start Date End Date Shantelle Ba MD [address] [place] [address] PCP - General 07/11/22
[2025-02-20 07:51] VITALS: BP 112/68; PULSE 86; RESP 17; TEMP 36.7; O2SAT 95; BMI 48.2
--- NOTE | 2025-02-20 07:51 | A.OFFPC_ITS ---
Vital Signs 02/20/25 07:51 Height 5 ft Weight 247 lb BMI 48.2 BP 112/68 Blood Pressure Location Lt radial Position Sitting Respiration 17 Pulse 86 Pulse Source Pulse Oximeter Temp 98.0 F Temp Source Oral Pulse Oximetry (%) 95 Oxygen Delivery Method Room Air Intake Visit Reasons: Annual PE - see comments Intake Note: Pt is here today for her PE Allergies No Known Allergies Allergy (Verified 02/20/25 08:32) Medication List - Last Reconciled 02/20/25 by Shantelle Ba MD albuterol sulfate 90 mcg/actuation 1 inh inhalation Q6H PRN apixaban (Eliquis) 5 mg PO BID carvedilol 6.25 mg PO BID cholecalciferol (vitamin D3) 50 mcg PO DAILY ferrous sulfate 325 mg PO DAILY furosemide 20 mg PO DAILY PRN isosorbide mononitrate ER 30 mg PO DAILY whkacmfo-dolajur-zzfs-lutein 1 tab PO DAILY rosuvastatin 20 mg PO BEDTIME Symbicort 160-4.5 mcg/actuation (budesonide-formoterol) 1 puff PO Q12H 1 month NS vit C,S-Ko-ongvn-lutein-zeaxan 250-90-40-1 mg (PreserVision AREDS-2) 1 tab PO BID Tobacco use date assessed: 02/20/25 Fall risk assessment: No Falls in past year Last assessed Fall Risk: 02/20/25 Dental Screening Dental Screen Date: 02/20/25 Did you have a dental visit in the last 12 months?: Yes Did you have a dental problem in the last 6 months where you did not have access to dental care?: No Was dental information given to patient?: Patient has dentist HPI Annual PE - see comments HPI Details 79-year-old female history of coronary a rtery disease, moderate aortic stenosiss/p TAVR 11/2024, chronic atrial fibrillation on Eliquis, sick sinus syndrome and Mobitz 1 heart block status post implantation of dual-chamber [employer] pacemaker on 10/27/[address] Romero, has hypertension, dyslipidemia, asthma, class 3 obesity, with lymphedema, and recently admitted January 2025 for a large pericardial effusion, here today for physical exam. 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 She had a follow-up CT on January 27 which showed significant reduction pericardial effusion, now trace and with small bilateral pleural effusions and mild atelectasis. Patient remains stable, has not been having any chest pain,, denies any shortness of breath, no normal bleeding or headache or lightheadedness reported. She is currently receiving physical therapy at home and will be starting cardiac rehab [facility] Medical History (Updated 02/25/25 @ 18:49 by Shantelle Ba MD) Lymphedema of both lower extremities Acute pericardial effusion Anemia Aortic stenosis, moderate Mild intermittent asthma AV block Obesity Dyslipidemia Stress incontinence Chronic kidney disease Diverticulitis Atrial fibrillation Osteoarthritis Essential hypertension Surgical History Status post placement of cardiac pacemaker Status post transcatheter aortic valve replacement (TAVR) using bioprosthesis Hx of colonoscopy History of tubal ligation Family History Son Esophageal cancer Social History Household Members: None Housing: Apartment Do you presently have visiting nurse or other home services: No Alcohol intake: current Alcohol intake frequency: holidays/special occasions only Comment: low fall supervise with walker Patient Tobacco Use Status: Former Tobacco user Tobacco use type: Cigarette Years Smoked: 40 yrs e-Cigarette/Vaping Use: Never Used Second Hand Smoke Exposure: No service: No 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 Depression Screening Interpretation: Negative Depression Screening Done: Yes Source: Developed by Drs. Ney Mcwilliams, Saloni Spencer, Jorge Petty and colleagues, with an educational lisa from [employer],. Thrive Questionnaire Date Thrive assessed: 09/05/24 I am a: Patient What is your living situation today?: I have a steady place to live Within the past 12 months, did the food you bought not last and you didn't have the money to get more?: Never true Within the past 12 months, did you worry whether your food would run out before you got money to buy more?: Never true Do you have trouble paying for medicines?: No Do you have trouble getting transportation to medical appointments?: No Do you have trouble paying your heating and electricity bill?: No Do you have trouble taking care of your child, family member or friend?: No Do you have trouble with day-to-day activities such as bathing, preparing meals, shopping, managing finances, etc.?: Yes Are you currently unemployed and looking for a job?: No Are you interested in more education?: No Please select the resources that you would like help with: None Currently or been in a relationship where the following occur: No concerns reported THRIVE Score: 0 JIE-7 AMB Questionnaire JIE-7 Date JIE - 7 assessed: 11/07/24 Source: Developed by Drs. Ney Mcwilliams, Saloni Spencer, Jorge Petty and colleagues, with an educational lisa from [employer],. Review of Systems Const Denies fever(s), Denies frequent falls, Denies lethargy and Denies malaise Eyes Denies change in vision ENT Reports no additional complaints Card Denies chest pain, Reports irregular heart rhythm and Denies lightheadedness Resp Reports no additional complaints GI Denies abdominal pain, Denies melena, Denies change in bowel habits and Denies heartburn Denies hematuria and Reports urinary incontinence Musc Reports arthralgias (Both knees) and Reports stiffness Skin/Breast Denies breast pain, Denies breast mass and Denies rash Neuro Denies frequent falls Psych Reports no additional complaints Endo Reports no additional complaints Lázaro/Lymph Denies easy bleeding and Denies easy bruising Aller/Immun Reports no additional complaints Physical exam (Primary Care) Vital Signs: Last Vital Signs Temp 98.0 F 02/20/25 07:51 Pulse 86 02/20/25 07:51 Resp 17 02/20/25 07:51 BP 112/68 02/20/25 07:51 Pulse Ox 95 02/20/25 07:51 Oxygen Delivery Method Room Air 02/20/25 07:51 BMI result Body Mass Index 48.2 Tobacco/Smoking Status: Tobacco use Status Tobacco use date assessed 02/20/25 02/20/25 07:52 Patient Tobacco Use Status Former Tobacco user 02/20/25 07:52 Tobacco use type Cigarette 02/20/25 07:52 e-Cigarette/Vaping Use Never Used 02/20/25 07:52 Depression Screening Interpretation: Negative Thrive Assessment: Date of Thrive Assessment Date Thrive assessed 09/05/24 02/20/25 07:52 Currently or been in a relationship where the following occur: No concerns reported Const Other: Morbidly obese, alert, oriented x3, ambulatory with assistance of a cane, daughter present during visit [facility] Head: Yes normocephalic General nose exam: Normal external nose present Face and sinus: Yes face symmetric Mouth: Normal oral and palatal mucosa present and moist mucous membranes Eyes General: appearance normal, both eyes and all related structures Neck Neck: Yes full ROM, Yes no lymphadenopathy, Yes no meningeal signs and Yes supple Resp Effort & Inspection: normal respiratory effort and able to speak in complete sentences Auscultation: clear to auscultation bilaterally Cardio Other: Regular rate and rhythm, with pacemaker GI Other: Morbidly obese, normal bowel sounds soft,, Inspection: Yes Abdominal panniculus present Palpation (GI): Soft to palpation, nontender, no guarding and no masses Auscultation: normal bowel sounds General: Yes no CVA tenderness Back/Spine/Pelvis Back: no CVA tenderness and No back tenderness Skin General skin exam: no rashes or lesions noted Neuro General: moves all extremities, Normal light touch and pain sensation, no meningeal signs and no focal motor deficits Extrem Other: Trace pedal edema bilaterally Psych Appearance: grossly normal Mental Status: mental status grossly normal Speech and movement: Normal speech and movement present Affect: normal affect Attitude: cooperative Thought process: Normal thought process present Results Reviewed Results Reviewed: Name: Preeti Antoine Age/Sex: 79/F : 1945 Unit#: [id number] Attend Dr: Shantelle Ba MD Re02/18/25 Status: DEP [facility] Disch: SPEC : [id number] CHAKA: 02/18/25 STATUS: COMP REQ : [id number] RECD: 02/18/[address]: Shantelle Ba MD COMP: 02/18/25 ENTERED: 02/18/[address] [facility] [address]: ORDERED: CBC Auto Diff Test Result Flag Reference WBC 7.5 4.8-10.8 X10*3/uL RBC 4.33 4.20-5.50 X10*6/uL HGB 11.4 L 12.0-16.0 g/dl HCT 37.3 37.0-47.0 % MCV 86.1 80.0-98.0 fL MCH 26.3 L 27.0-33.0 pg MCHC 30.6 L 31.0-35.0 g/dl RDW 18.2 H 11.0-16.0 % PLT 211 160-400 X10*3/uL MPV 11.6 9.4-12.3 fL Neut Pct Auto 66.0 45-73 % ImGran Pct Auto 0.3 0.0-0.4 % Lymp Pct Auto 22.0 20-40 % Wolfe Pct Auto 9.2 2-11 % Eos Pct Auto 2.1 0-4 % Baso Pct Auto 0.4 0-2 % NRBC Pct Auto 0.0 0.0-0.2 /100WBC ANC Neut Abs # 5.0 2.0-8.3 x10*3/uL ImGran Abs Auto 0.02 0.00-0.03 X10*3/uL Lymph Abs Auto 1.7 1.2-4.9 X10*3/uL Wolfe Abs Auto 0.7 0.1-1.2 X10*3/uL Eos Abs Auto 0.2 0.0-0.4 X10*3/uL Baso Abs Auto 0.0 0.0-0.2 X10*3/uL NRBC Abs Auto 0.000 0.0-0.012 X10*3/uL Name: Preeti Antoine Age/Sex: 79/F : 1945 Unit#: [id number] Attend Dr: Shantelle Ba MD Re02/18/25 Status: DEP REF Location: [facility] Disch: SPEC : [id number] CHAKA: 02/18/25 STATUS: COMP REQ : [id number] RECD: 02/18/25-[address]: Shantelle Ba MD COMP: 02/18/25-1203 ENTERED: 02/18/25-[address]: ORDERED: Met Prof Fast, IRON PROF, AST, ALT, Lipid Panel, Vitamin D 25-OH Test Result Flag Reference Sodium 145 135-145 mmol/L Potassium 4.1 3.3-5.1 mmol/L CL 108 96-108 mmol/L CO2 28 22-29 mmol/L Gap 13 12-20 BUN 20 H 9-16 mg/dL Creat 1.25 0.5-1.4 mg/dL eGFR 41 Chronic Kidney Disease: Estimated GFR < 60 mL/min/1.73m2 Severe Kidney Disease: Estimated GFR < 15 mL/min/1.73m2 FBS 101 H 60-99 mg/dL A fasting glucose from 100-125 mg/dl is considered impaired (pre-diabetes). CA 9.0 # 8.4-10.2 mg/dL Iron 46 30-160 mcg/dL TIBC 219 L 228-428 mcg/dL Saturation 21 15-50 % UIBC 173 ug/dL AST (GOT) 26 5-31 U/L ALT (GPT) 10 0-31 U/L Triglyceride 157 H <150 mg/dL Desirable Triglyceride: less than 150 mg/dL Borderline High Triglyceride 150-199 mg/dL High Triglyceride: 200-499 mg/dL Very High Triglyceride: greater than or equal to 5OO mg/dL Cholesterol 102 <200 mg/dL Desirable Cholesterol: less than 200 mg/dL Borderline High Cholesterol: 200-239 mg/dL High Cholesterol: greater than 239 mg/dL LDL Calculated 41 <100 mg/dL Desirable LDL: less than 100 mg/dL Near Optimal/Above Optimal LDL: 110-129 mg/dL Borderline High LDL: 130-159 mg/dL High LDL: 160-189 mg/dL Very High LDL: greater than or equal to 190 mg/dL HDL 30 L >40 mg/dL Desirable HDL: greater than 40 mg/dL Note: This HDL assay may give artificially low results in patients with liver disease. Vitamin D 25-OH 45.3 >30 ng/mL Health Based Reference Values* < 20 ng/mL Deficient 20-30 ng/mL Insufficient > 30 ng/mL Sufficient Coding Level of Care Code Est Pt Prev Care >65y(24562) Diagnoses Annual visit for general adult medical examination with abnormal findings Z00.01 Essential hypertension I10 Dyslipidemia E78.5 Mild intermittent asthma without complication J45.20 Asthma complication type: uncomplicated Permanent atrial fibrillation I48.21 Atrial fibrillation type: permanent Chronic kidney disease N18.9 Anemia, unspecified type D64.9 Anemia type: unspecified type Lymphedema of both lower extremities I89.0 Assessment & Plan Assessment & Plan (1) Annual visit for general adult medical examination with abnormal findings: Code(s): Z00.01 - Encounter for general adult medical examination with abnormal findings Plan: Reviewed recent fasting lab results with patient. Continued on present medications, currently followed by Cardiology status post TAVR and dual-chamber pacemaker insertion earlier this year. Up-to-date with all her vaccines (2) Essential hypertension: Code(s): I10 - Essential (primary) hypertension Category: Medical Plan: Blood pressure stable and controlled, continued on carvedilol 6.25 mg 1 tab twice a day, isosorbide mononitrate ER 30 mg daily (3) Dyslipidemia: Code(s): E78.5 - Hyperlipidemia, unspecified Category: Medical Plan: Recent fasting lipids are within normal limits. Continued on rosuvastatin 20 mg daily (4) Mild intermittent asthma: Code(s): J45.20 - Mild intermittent asthma, uncomplicated Category: Medical Qualifiers: Asthma complication type: uncomplicated Qualified Code(s): J45.20 - Mild intermittent asthma, uncomplicated Plan: Uses albuterol inhaler as needed for episodes of wheezing, currently on Symbicort 160-4.5 mcg per actuation 1 inhalation twice a day (5) Atrial fibrillation: Comment: sees Dr Dee , [facility] Cardiology Code(s): I48.91 - Unspecified atrial fibrillation Category: Medical Qualifiers: Atrial fibrillation type: permanent Qualified Code(s): I48.21 - Permanent atrial fibrillation Plan: Followed by cardiology currently on Eliquis 5 mg 1 tablet twice a day (6) Chronic kidney disease: Code(s): N18.9 - Chronic kidney disease, unspecified Category: Medical Plan: Kidney function stable (7) Anemia: Code(s): D64.9 - Anemia, unspecified Category: Medical Qualifiers: Anemia type: unspecified type Qualified Code(s): D64.9 - Anemia, unspecified Plan: Mild anemia present, currently on ferrous sulfate 325 mg daily (8) Lymphedema of both lower extremities: Code(s): I89.0 - Lymphedema, not elsewhere classified Category: Medical Plan: Takes furosemide as needed only for swelling in both lower extremities Orders: Orders IRON PROFILE 06/03/25 D64.9 - Anemia, unspecified, E78.5 - Hyperlipidemia, unspecified, I10 - Essential (primary) hypertension, I30.9 - Acute pericarditis, unspecified, I48.91 - Unspecified atrial fibrillation, J45.20 - Mild intermittent asthma, uncomplicated, N18.9 - Chronic kidney disease, unspecified, 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 Aspartate Amino Transferase 06/03/25 D64.9 - Anemia, unspecified, E78.5 - Hyperlipidemia, unspecified, I10 - Essential (primary) hypertension, I30.9 - Acute pericarditis, unspecified, I48.91 - Unspecified atrial fibrillation, J45.20 - Mild intermittent asthma, uncomplicated, N18.9 - Chronic kidney disease, unspecified, 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 Complete Blood Count Auto Diff 06/03/25 D64.9 - Anemia, unspecified, E78.5 - Hyperlipidemia, unspecified, I10 - Essential (primary) hypertension, I30.9 - Acute pericarditis, unspecified, I48.91 - Unspecified atrial fibrillation, J45.20 - Mild intermittent asthma, uncomplicated, N18.9 - Chronic kidney disease, unspecified, 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 Lipid Panel 06/03/25 D64.9 - Anemia, unspecified, E78.5 - Hyperlipidemia, unspecified, I10 - Essential (primary) hypertension, I30.9 - Acute pericarditis, unspecified, I48.91 - Unspecified atrial fibrillation, J45.20 - Mild intermittent asthma, uncomplicated, N18.9 - Chronic kidney disease, unspecified, Z79.01 - USP (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 Basic Metabolic Panel Fasting 06/03/25 D64.9 - Anemia, unspecified, E78.5 - Hyperlipidemia, unspecified, I10 - Essential (primary) hypertension, I30.9 - Acute pericarditis, unspecified, I48.91 - Unspecified atrial fibrillation, J45.20 - Mild intermittent asthma, uncomplicated, N18.9 - Chronic kidney disease, unspecified, Z79.01 - USP (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 Vitamin D 25-OH Total 06/03/25 D64.9 - Anemia, unspecified, E78.5 - Hyperlipidemia, unspecified, I10 - Essential (primary) hypertension, I30.9 - Acute pericarditis, unspecified, I48.91 - Unspecified atrial fibrillation, J45.20 - Mild intermittent asthma, uncomplicated, N18.9 - Chronic kidney disease, unspecified, 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
== END 2025-02-20 08:57 | disposition home or self-care (01) ==
LOC: HO.HMCC 07:38
PROVIDERS: PCP Internal Medicine; Visit Provider Internal Medicine
DX: Z00.01 Encounter for general adult medical examination with abnormal findings (principal); I12.9 Hypertensive chronic kidney disease with stage 1 through stage 4 chronic kidney disease, or unspecified chronic kidney disease; I48.21 Permanent atrial fibrillation; N18.9 Chronic kidney disease, unspecified; E78.5 Hyperlipidemia, unspecified; J45.20 Mild intermittent asthma, uncomplicated; D64.9 Anemia, unspecified; I89.0 Lymphedema, not elsewhere classified

== ENCOUNTER → 2025-02-20 07:37 | Outpatient (BNVA) | payer MEDICARE, SELFPAY | PROVIDERS: PCP Internal Medicine; Visit Provider Internal Medicine | DX: Z00.01 Encounter for general adult medical examination with abnormal findings (principal); E78.5 Hyperlipidemia, unspecified; J45.20 Mild intermittent asthma, uncomplicated; I48.21 Permanent atrial fibrillation; I12.9 Hypertensive chronic kidney disease with stage 1 through stage 4 chronic kidney disease, or unspecified chronic kidney disease; N18.9 Chronic kidney disease, unspecified; D64.9 Anemia, unspecified; I89.0 Lymphedema, not elsewhere classified | CPT/HCPCS: 99397 ==

== ENCOUNTER 2025-03-31 07:00 | Outpatient (RCR) | payer MEDICARE, SELFPAY | END 2025-04-07 06:33 | disposition home or self-care (01) | LOC: HO.CR 07:00 | PROVIDERS: PCP Internal Medicine; Visit Provider Nurse Practitioner Acute Care | DX: Z95.3 Presence of xenogenic heart valve (principal) | CPT/HCPCS: 93798 ==

== ENCOUNTER 2025-06-22 07:50 | Outpatient (REF) | payer MEDICARE, SELFPAY ==
[2025-06-22 10:19] LABS: MANUAL DIFF FLAG NO
[2025-06-22 10:28] LABS: Hematocrit 39.5 % (37.0-47.0); Hemoglobin 12.1 g/dl (12.0-16.0); Imm Gran Abs Auto 0.03 X10*3/uL (0.00-0.03); Imm Gran Pct Auto 0.3 % (0.0-0.4); Lymphocytes Absolute Auto 1.7 X10*3/uL (1.2-4.9); Mean Corpuscular HGB Conc 30.6 g/dl (31.0-35.0); Mean Corpuscular Hemoglobin 28.2 pg (27.0-33.0); Mean Corpuscular Volume 92.1 fL (80.0-98.0); NRBC Abs Auto 0.000 X10*3/uL (0.0-0.012); NRBC Pct Auto 0.0 /100WBC (0.0-0.2); Platelet Count 193 X10*3/uL (160-400); Red Blood Count 4.29 X10*6/uL (4.20-5.50); White Blood Count 8.9 X10*3/uL (4.8-10.8)
[2025-06-22 10:50] LABS: Alanine Aminotransferase 17 U/L (0-31); Anion Gap 12 (12-20); Aspartate Amino Transferase 27 U/L (5-31); Blood Urea Nitrogen 30 mg/dL (9-16); Calcium 9.6 mg/dL (8.4-10.2); Carbon Dioxide 29 mmol/L (22-29); Chloride 107 mmol/L (96-108); Cholesterol 114 mg/dL (<200); Estimated Glomerular Filt Rate 39; HDL Cholesterol 36 mg/dL (>40); Iron 49 mcg/dL (30-160); Percent Iron Saturation 22 % (15-50); Potassium 4.6 mmol/L (3.3-5.1); Sodium 143 mmol/L (135-145); Total Iron Binding Capacity 224 mcg/dL (228-428); Triglycerides 134 mg/dL (<150); Unsaturated Iron Binding 175 ug/dL
== END 2025-06-22 07:51 | disposition home or self-care (01) ==
LOC: HO.HMGCLDS 07:50
PROVIDERS: PCP Internal Medicine; Visit Provider Internal Medicine
DX: I10 Essential (primary) hypertension (principal); D64.9 Anemia, unspecified; I25.10 Atherosclerotic heart disease of native coronary artery without angina pectoris; I48.21 Permanent atrial fibrillation; E78.5 Hyperlipidemia, unspecified; I31.39 Other pericardial effusion (noninflammatory); N18.9 Chronic kidney disease, unspecified; J45.20 Mild intermittent asthma, uncomplicated; H40.9 Unspecified glaucoma; I89.0 Lymphedema, not elsewhere classified; Z86.79 Personal history of other diseases of the circulatory system; Z79.01 Long term (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
CPT/HCPCS: 36415; 80048; 80061; 82306; 83540; 84450; 84460; 85025; 96127; 96160; 99212

== ENCOUNTER 2025-06-22 07:50 | Outpatient (AMB) | payer MEDICARE, SELFPAY ==
--- OUTSIDE RECORDS SUMMARY | 2024-11-01 10:30 | XMS_ITS ---
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 Name Role Phone Mejia JOHNSON, Shantelle Bee Primary Care Provider Un available Franki Gupta Unavailable [phone] Encounters Encounter Location Date Provider Diagnosis [address] [address] 11/01/2024 Franki Gupta Plan Of Treatment Next Appt Details Provider Name:Franki Gupta , 09/26/2025 03:45:00 PM, [address] [place] [address], [phone], Progress Notes * Preeti ANTOINEDOB:1945 (80 yo F)Acc No.[id number]:11/01/2024 Progress Note Patient: Preeti RIOS Provider: Noni Gupta DPM :1945 A ge:79 Y S ex:Female Date:11/01/2024 Address:[address] [place], [place] [id number] Pcp:Saw Lockwood Subjective: * Chief Complaints: * * Medical History: Objective: * Vitals: Assessment: Plan: * Treatment: * Images: * The named appointment provid er may or may not be the originator of this progress note, and it is not deemed complete until electronically signed by the appointment provider. Sign off status: Pending * Provider: Noni Gupta DPM Date: 0 11/01/2024 Generated for Juli milton/Camron/Coco on: 1 08/22/2024 07:58 AM EST
--- OUTSIDE RECORDS SUMMARY | 2025-01-31 06:15 | XMS_ITS ---
Author Organization [facility] Address [address] [place] [phone] Care Team Providers Care Lead Software Test Engineer Name Role Phone Mejia JOHNSON, Shantelle Bee Primary Care Provider Un available Franki Gupta Unavailable [phone] REASON FOR VISIT seen on Encounters Encounter Location Date Provider Diagnosis [address] [address] 01/31/2025 Franki Gupta Plan Of Treatment Next Appt Details Provider Name:Franki Gupta , 09/26/2025 03:45:00 PM, [address] [place] [address], [id number], Progress Notes * Preeti ANTOINEDOB:1945 (80 yo F)Acc No.[id number]:01/31/2025 Progress Note Patient: Preeti RIOS Provider: Noni Gupta DPM :1945 A ge:79 Y S ex:Female Date:01/31/2025 Address:[address] [place], [place] [id number] Pcp:Saw Lockwood Subjective: * Chief Complaints: * 1 . Seen on . * Medical History: Objective: * Vitals: Assessment: Plan: * Treatment: * Images: * The named appointment provid er may or may not be the originator of this progress note, and it is not deemed complete until electronically signed by the appointment provider. Sign off status: Pending * Provider: Noni Gupta DPM Date: 0 01/31/2025 Generated for Juli Farmer on: 08/22/2024 07:59 AM EST
--- OUTSIDE RECORDS SUMMARY | 2025-06-16 07:00 | XMS_ITS ---
Author Organization [facility] Address [address] [place] [id number] Care Team Providers Care Thickener Operator Name Role Phone Mejia JOHNSON, Shantelle Bee Primary Care Provider Un available Franki Gupta Unavailable [phone] Encounters Encounter Location Date Provider Diagnosis [address] [id number] 06/16/2025 Franki Gputa Plan Of Treatment Next Appt Details Provider Name:Franki Gupta , 09/26/2025 03:45:00 PM, [address] [place] [address], [id number], Progress Notes * Preeti ANTOINEDOB:1945 (80 yo F)Acc No.[id number]:06/16/2025 Progress Note Patient: Preeti RIOS Provider: Noni Gupta DPM :1945 A ge:80 Y S ex:Female Date:06/16/2025 Address:[address] [place], [place] [id number] Pcp:Saw Lockwood Subjective: * Chief Complaints: * * Medical History: Objective: * Vitals: Assessment: Plan: * Treatment: * Images: * The named appointment provid er may or may not be the originator of this progress note, and it is not deemed complete until electronically signed by the appointment provider. Sign off status: Pending * Provider: Noni Gupta DPM Date: 08/16/2024 Generated for Juli milton/Camron/Coco on: 08/22/2024 07:59 AM EST
--- OUTSIDE RECORDS SUMMARY | 2025-06-19 09:30 | XMS_ITS ---
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 Role Phone Mejia JOHNSON, Shantelle Bee Primary Care Provider Un available CandyFranki palomares Unavailable [phone] LittlejohnSuad cheema Unavailable [phone] Allergies No Known Allergies REASON FOR VISIT At Risk Footcare, Painful Nail(s) aggrevated by shoes and causing difficulty standing/walking., Ingrown Nail Medications Medication SIG (Take, Route, Frequency, Duration) Notes Start Date End Date Status Aspirin Low Dose 81 MG 1 tablet Orally O nce a day Not-Taking Rosuvastatin Calcium 20 MG 1 tablet Orally Once a day Active Eliquis 5 MG 1 tablet Orally Twic e a day Active Metoprolol Succinate ER 100 MG 1 tablet Orally Once a day Active Furosemide 20 MG 1 tablet Orally Once a day Active Fish Oil 1000 MG 1 capsule Orally Onc e a day Active Centrum Silver Activ e Albuterol Active Symbicort Active Isosorbide Mononitrate Active Carvedilol 6.25 MG 1 tablet with food Orally Twice a day Active Vitamin D3 Active Iron Active PreserVision AREDS 2 Active Colchicine 0.6 MG 1 tablet Orally Active Social History Tobacco Use: Social History Observation Description Date Details (start date - stop date) Never Smoker NA - NA Alcohol Screen Question Answer Notes Did you have a drink containing alcohol in the p ast year? No Points 0 Interpretation Negative Tobacco use other than smoking: Question Answer Notes Are you an other tobacco user? No Tobacco Control (Standard) Question Answer Notes Tobacco use: Nonsmoker Additional Findings: Tobacco non-user Current no nsmoker AUDIT-C (Standard) Question Answer Notes Did you have a drink containing alcohol in the p ast year? 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, with unspecified presence of clinical manifestation I70.203 ; Tinea unguium B35.1 ; Pain in right toe(s) M79.674 ; Pain in left toe(s) M79.675 and Ingrown nail L60.0 Assessments Encounter Date Diagnosis (ICD Code) Assessment Notes Treatment Notes Treatment Clinical Notes Section Notes 06/19/2025 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, with unspecified presence of clinical manifestation (ICD-10 - I70.203) 06/19/2025 Tinea unguium (ICD-10 - B35.1) 06/19/2025 Pain in right toe(s) (ICD-10 - M79.674) 06/19/2025 Pain in left toe(s) (ICD-10 - M79.675) 06/19/2025 Ingrown nail (ICD-10 - L60.0) Plan Of Treatment Pending Test Test Name Order Date 76851-ZZZSYIC NAIL, 6 OR MORE 06/19/2025 04320-Csmdklfi Plate 06/19/2025 46552-YOAH SKIN LESIONS, 2 TO 4 06/19/20 Next Appt Details Follow Up: prn, Reason: Provider Name:Franki Gupta , 09/26/2025 03:45:00 PM, [address] [place], [address], Procedure Notes * Category Sub-Category Detail Notes [...] use of a nail nipper and/or dremel-type rubber roller grinder, to a more viable healthy nail plate [...] to maintain effectiveness in symptomatic relief - 03283 Keratoma Treatment Parring or Cutting o f [...] ( Medial, IPJ, T5, Plantar, Heel(s) , B/L ), were pared, and/or cut utilizing a sterile 15 blade, tissue nippers, and/or power dremel instrumentation by the physician of record - 87255, Q8 Progress Notes * Preeti ANTOINEDOB:1945 (80 yo F)Acc No.[id number]:06/19/2025 Progress Note Patient: Preeti RIOS Provider: Ayden Littlejohn DPM :1945 A ge:80 Y S ex:Female Date:06/19/2025 Address:[address] [place] [address] Pcp:Saw Lockwood Subjective: * Chief Complaints: * A t Risk FootcarePainful Nail(s) aggrevated by shoes and causing difficulty standing/walking.Ingrown Nail * HPI: A t Risk footcare: Pt States Last PCP Visit: D ate 0 02/07/2025 * ROS: G eneral/Constitutional: Nausea d enies. V omiting d enies. H rajesh Thirst d enies. L oss appetite d enies. C hills d enies. F atigue d enies.?Fever d enies. N ight Sweats d enies. U nexplained weight loss d enies. U nexplained weight gain d enies. H EENTM: Dentures a dmits. D izziness d enies. G lasses/contacts a dmits. R etinopathy d enies. B lurred/double vision d enies. T MJ?denies. D ischarge/drainage d enies. I mplants d enies. S ore throat d enies. D ental implants d enies. H suzy of hearing a dmits. D ifficulty chewing/swallowing/speaking d enies. N ose bleeds d enies. S ore mouth d enies. ? R espiratory: On Oxygen d enies. P neumonia/pleurisy d enies.?Bronchitis a dmits. E mphysema d enies. C oughing d enies. C ough blood?denies. S hortness of breath a dmits. W heezing a dmits. C ardiovascular: Pacemaker d enies. M [employer] d enies. W PW d enies. C HF d enies. H eart attack d enies. S eptal defect d enies. R apid beat d enies. C hest pain d enies. A trial Fib. a dmits. M urmur/Palpitations d enies. G astrointestinal: Hemorrhoids d enies. S tomach/Abdominal pain d enies. D ark blood stool d enies. I rritable bowel a dmits. C onstipation d enies. D iarrhea d enies. H ematology: Swelling a dmits. C lots d enies. V aricose Veins a dmits. B ruising a dmits, on anticoagulants. B leeding problem a dmits, on anticoagulants. G enitourinary: Blood urine d enies. F requent/Painfu/urination/bladder control d enies. K idney stones d enies. I nfection (UTI) d enies. N ephropathy d enies. s ex trans dis (STD) d enies. P rostate d enies. M usculoskeletal: Hammertoes d enies. B unions d enies. B ack Pain d enies. M uscle Cramps/ Resting d enies. M uscle cramps / walking d enies.?Generalized aches and pains d enies. W eakness d enies. I nteg.: Peguero d enies. S cars d enies. C orns/calluses?admits. I ngrown nails a dmits. P ainful nails a dmits. O pen Sores d enies. R ashes d enies. N eurologic: Difficulty sleeping d enies. B rain disorder d enies. N umbness d enies. B alance trouble d enies. C onfusion d enies. F ainting/blackouts d enies. T ingling d enies. T remors d enies. * Medical History: * Surgical History: p acemaker 10/27/24TAVR 11/17/24 * Hospitalization/Major Diagno stic Procedure: C ardiac Pacemaker 2024 * Family History: M other: , arthritis, heart attack, high blood pressure. F ather: , stroke, high blood pressure. S iblings: stroke. * Social History: T obacco Use: T obacco use other than smoking A re you an other tobacco user? N o Tobacco Control (Standard) T obacco use: N onsmoker A dditional Findings: Tobacco non-user C urrent nonsmoker D rugs/Alcohol: D rugs H ave you used drugs other than those for medical reasons in the past 12 months? N o Alcohol Screen D id you have a drink containing alcohol in the past year? N o P oints 0 I nterpretation N egative M iscellaneous: C affeine: yes, frequency: 1 per day. Children: yes, 3. Exercise: no. Marital status: . Occupation: Unemployed. 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 N o P oints 0 I nterpretation N egative * Medications: T akingIron PreserVision AREDS 2 Colchicine 0.6 MG Tablet 1 tablet Orally Carvedilol 6.25 MG Tablet 1 tablet with food Orally Twice a day Vitamin D3 Fish Oil 1000 MG Capsule 1 capsule Orally Once a day Centrum Silver Albuterol Symbicort Isosorbide Mononitrate Furosemide 20 MG Tablet 1 tablet Orally Once a day Metoprolol Succinate ER 100 MG Tablet Extended Release 24 Hour 1 tablet Orally Once a day Rosuvastatin Calcium 20 MG Tablet 1 tablet Orally Once a day Eliquis 5 MG Tablet 1 tablet Orally Twice a day Taking Iron Taking PreserVision AREDS 2 Taking Colchicine 0.6 MG Tablet 1 tablet Orally Taking Carvedilol 6.25 MG Tablet 1 tablet with food Orally Twice a day Taking Vitamin D3 Taking Fish Oil 1000 MG [...] Tablet 1 tablet Orally Twice a day Not-Taking/PRNAspirin Low Dose 81 MG Tablet Chewable 1 tablet Orally Once a day Medication List reviewed and reconciled with the patientNot-Taking/PRN Aspirin Low Dose 81 MG Tablet Chewable 1 tablet Orally Once a day Medication List reviewed and reconciled with the patient * Allergies: N .K.D.A.yes[Allergies Verified] Objective: * Vitals: H t: 5 ft, Wt: 241, BMI: 47.06, Shoe size: 10, BP: 126/65 mm Hg, Ht-cm: 152.4 cm, Wt-k.32 kg. * Examination: V ascular: DP PULSES (B): 0/4, B/L. PT PULSES (B): 0/4, B/L. CAPILLARY FILL TIME: delayed, all digits, B/L. TROPHIC CONDITION-TEXTURE/ELASTICITY/TURGOR/HAIR GROWTH (B):? decreased, with sparse to absent hair growth, B/L. TEMPERTURE GRADIENT (C): decreased, cool to cool, proximal to distal, B/L. PIGMENTATION: r ubrous, B/L. EDEMA (C): 4 /4 , pitting , without aching pain , Leg(s) , Ankle(s) , Foot , B/L. CLAUDICATION (C): d enies, B/L. REST PAIN: d enies, B/L. N ails: NAILS are: Elongated, overgrown, dystrophic, lytic, greater than 3mm thick, discolored and friable with crumbly malodorous subungual debris, with pain on palpation, TA, T1, T2,T5, T6, T7, T8, T9, all other nails not described with characteristics as possessing mycosis are elongated, overgrown, and dystrophic. D ermatologic: SKIN FINDINGS: S kin exam reveals Keratotic lesion(s) located at , Medial, I PJ, T5, Plantar, Heel(s) , B/L. I ngrown Nail: INSPECTION: R eveals nail incurvation, pain on palpation, groove hypertrophy, Medial nail border, T5. Assessment: * Assessment: 1. T inea unguium - B35.1 2 . A therosclerosis of mohegan artery of both lower extremities, with unspecified presence of clinical manifestation - I70.203 (Primary) ?Specify :Q8 3 . P ain in right toe(s) - M79.674 4 . P ain in left toe(s) - M79.675 5 . I ngrown nail - L60.0 S pecify :Acute Problem, Uncomplicated (3) Plan: * Treatment: 2. T inea unguium P rocedure: 42833-MXXAGTC NAIL, 6 OR MORE 3. I ngrown nail P rocedure: 25831-Zkdneuno Plate * Procedures: D ebride Nail 6-10: Nail debridement D ue to the clinical pathology outlined in the exam findings, performance of this nail treatment is medically necessary as its management by an unskilled/untrained nonprofessional would put this patients foot and overall health at risk. Therefore, debridement to affected nail(s), as described in exam ( T A, T 1, T 2, T 5, T6, T7, T8, T9), was performed exclusively by the physician of record to reduce/remove overall nail length, girth, thickness, subungual debris, and necrotic tissue, by manual and/or electrical means through the use of a nail nipper and/or dremel-type rubber roller grinder, to a more viable healthy nail plate [...] to maintain effectiveness in symptomatic relief - 42967. K eratoma Treatment: Parring or Cutting of Benign Hyperkeratotic Lesion(s) ( -56) 2-4 Lesions - Due to the at [...] ( Medial, IPJ, T5, Plantar, Heel(s) , B/L ), were pared, and/or cut utilizing a sterile 15 blade, tissue nippers, and/or power dremel instrumentation by the physician of record - 03365, Q8. ? * Procedure Codes: 1 1721 DEBRIDE NAIL, 6 OR MORE, Modifiers: XS 22283 TRIM SKIN LESIONS, 2 TO 4, Modifiers: XS , Q8 * Preventive Medicine: Counseling: D iscussion: - 13: Office or other outpatient visit for the evaluation and management of an established patient, which required a medically appropriate history and/or examination and LOW level of DECISION MAKING for: 1 STABLE ACUTE UNCOMPLICATED PROBLEM, 2 OR MORE MINOR PROBLEMS, OR 1 STABLE CHRONIC PROBLEM, THAT POSE(S) A LOW RISK FOR MORBIDITY/MORTALITY. The visit on the day of the encounter encompassed interpreting the data and educating the patient as to the nature of their condition, treatment options available according to their individual PMH, meds, allergies, and overall health/living conditions, as well as any potential risks or complications that may occur from a failure to adhere to, and participate in, the recommended course of therapy. The discussion included a complete verbal, and/or written explanation of the examination results, any x-rays taken, the proposed diagnosis, and outline of the treatment plan. A schedule for future care needs was also explained. The patient verbalized an understanding of the instructions at this time and agreed to be an active participant in their treatment. If the patient should think of any questions or concerns after the visit, I have encouraged the patient to call the office. A bscess/Paraonychia/Ingrown Nails: W e discussed the possible etiologies (genetic, improper nail care, shoe gear, nail trauma) which may lead to ingrown nails and/or paronychial infections. We discussed and reviewed palliative/nonsurgical/deferring definitive treatment (vs) undergoing the treatment procedures of nail avulsion(s) or PNA, which may prevent recurrence and give more lasting results. The possible risks/complications such as worsened condition/delayed healing/nonhealing/failure/recurrence/infection, the potential benefits/advantages of decreased pain/deformity, as well as alterative treatment options including applying nail softening agents/nail groove packing were discussed. No guarantees were given regarding any outcome for any procedure. The patient was educated in the length of time for the affected nail to regrow once completely healed from a nail avulsion procedure. Once the condition has completely healed, the patient was consulted on proper nail care. Patient questions such as details of each procedure, varying time to heal, activity post procedure, and shoe gear were discussed and the answers were verbally confirmed fully understood, slant back performed with good relief of pain, pt to monitor for any signs of infection, pt should soak in warm water and epsom salts and apply antibotic ointment, call with any issues. * Follow Up: p rn * Images: * Sign off status: Completed true * Provider: Ayden Littlejohn DPM Date: 08/19/2024 Generated for Juli milton/Camron/Coco on: 08/22/2024 07:58 AM EST History and Physical Notes * HPI (History of Present Illness) Category Sub-Category Detail Notes Category Not es At Risk footcare Pt States Last PCP Visit: Date: 5 Examination Category Sub-Category Detail Notes Category Not es Ingrown Nail INSPECTION: Reveals nail inc urvation, pain on palpation, groove hypertrophy, Medial nail border, T5 Dermatologic SKIN FINDINGS: Skin exam reveal s [...]
--- NOTE | 2025-06-22 07:54 | MHC.PC.OV ---
Vital Signs 06/22/25 07:55 Height 5 ft Weight 240 lb BMI 46.9 BP 132/70 Blood Pressure Location Rt radial Position Sitting Respiration 17 Pulse 88 Pulse Source Pulse Oximeter Temp 98.0 F Temp Source Oral Pulse Oximetry (%) 94 Oxygen Delivery Method Room Air Intake Visit Reasons: 4 months f/up Intake Note: Pt is here today for her 4mo. f/u HTN Feeder Driver Required: No Unix Analyst: Present Accompanied by: Daughter Allergies No Known Allergies Allergy (Verified 06/22/25 08:19) Medication List - Last Reconciled 06/22/25 by Shantelle Ba MD albuterol sulfate 90 mcg/actuation 1 inh inhalation Q6H PRN apixaban (Eliquis) 5 mg PO BID carvedilol 6.25 mg PO BID cholecalciferol (vitamin D3) 50 mcg PO DAILY ferrous sulfate 325 mg PO DAILY furosemide 20 mg PO DAILY isosorbide mononitrate ER 30 mg PO DAILY lvqxcooh-wyrrsiq-lkln-lutein 1 tab PO DAILY rosuvastatin 20 mg PO BEDTIME Symbicort 160-4.5 mcg/actuation (budesonide-formoterol) 1 puff PO Q12H 1 month NS vit C,S-Nz-konae-lutein-zeaxan 250-90-40-1 mg (PreserVision AREDS-2) 1 tab PO BID Tobacco use date assessed: 06/22/25 Last assessed Fall Risk: 06/22/25 Dental Screening Dental Screen Date: 06/22/25 Did you have a dental visit in the last 12 months?: Yes Did you have a dental problem in the last 6 months where you did not have access to dental care?: No Was dental information given to patient?: Patient has dentist HPI 4 months f/up HPI Details 80-year-old female with past medical history of atrial fibrillation on apixaban, sick sinus syndrome status post Medtronic dual-chamber pacemaker, pericardial effusion status post pericardiocentesis on 01/25/2025, by Rx stenosis status post TAVR on 11/17/2024, nonobstructive coronary artery disease, hypertension, hyperlipidemia, morbid obesity and lower extremity lymphedema , who presents today for her follow-up. She was recently seen by her technology assistant, Dr. Shane at [facility] on 04/26/2025 who did an echocardiogram last 03/14/2025 which showed normal left ventricle cavity, normal left ventricular systolic function with an EF of 55-60%, no regional wall abnormalities noted. Left ventricle mild concentric hypertrophy, TAVR bioprosthetic aortic valve is present, mild MR and TR, trivial pericardial effusion, with no change in size of effusion compared to prior study from January 2025. Patient states that she has been feeling well, denies any shortness of breath at rest or on exertion, no chest pain, no palpitations, lower extremity edema unchanged, no lightheadedness, or syncopal attack. She just had fasting labs done this morning with results still pending. Up-to-date with her flu vaccine COVID vaccine booster pneumonia vaccine and shingles vaccine She goes to [facility] in [place], currently being seen for macular degeneration and glaucoma. She is hard of hearing, has hearing aids which she needs to have adjusted. She has mild intermittent asthma, currently on Symbicort which she has been using twice a day and states that she rarely needs to use her albuterol inhaler [facility] Medical History (Updated 06/22/25 @ 09:24 by Shantelle Ba MD) Glaucoma Pericardial effusion Coronary artery disease involving conf[place] coronary artery of [place] heart without angina pectoris Lymphedema of both lower extremities Acute pericardial effusion Anemia Aortic stenosis, moderate Mild intermittent asthma AV block Obesity Dyslipidemia Stress incontinence Chronic kidney disease Diverticulitis Atrial fibrillation Osteoarthritis Essential hypertension Surgical History (Updated 06/22/25 @ 09:16 by Shantelle Ba MD) Status post placement of cardiac pacemaker Status post transcatheter aortic valve replacement (TAVR) using bioprosthesis Hx of colonoscopy History of tubal ligation Family History Son Esophageal cancer Social History Household Members: None Housing: Apartment Do you presently have visiting nurse or other home services: No Alcohol intake: current Alcohol intake frequency: holidays/special occasions only Comment: low fall supervise with walker Patient Tobacco Use Status: Former Tobacco user Tobacco use type: Cigarette Years Smoked: 40 yrs e-Cigarette/Vaping Use: Never Used Second Hand Smoke Exposure: No service: No 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 1. Little interest or pleasure in doing things: not at all 2. Feeling down, depressed, or hopeless: not at all 3. Trouble falling or staying asleep, or sleeping too much: not at all 4. Feeling tired or having little energy: not at all 5. Poor appetite or overeating: not at all 6. Feeling bad about yourself - or that you are a failure or have let yourself or your family down: not at all 7. Trouble concentrating on things, such as reading the newspaper or watching television: not at all 8. Moving or speaking so slowly that other people could have noticed. Or the opposite - being so fidgety or restless that you have been moving around a lot more than usual: not at all 9. Thoughts that you would be better off or of hurting yourself in some way: not at all Total score: 0 Depression Screening Interpretation: Negative Depression Screening Done: Yes Source: Developed by Drs. Ney Mcwilliams, Saloni Spencer, Jorge Petty and colleagues, with an educational lisa from [employer]. Thrive Questionnaire Date Thrive assessed: 09/05/24 I am a: Patient What is your living situation today?: I have a steady place to live Within the past 12 months, did the food you bought not last and you didn't have the money to get more?: Never true Within the past 12 months, did you worry whether your food would run out before you got money to buy more?: Never true Do you have trouble paying for medicines?: No Do you have trouble getting transportation to medical appointments?: No Do you have trouble paying your heating and electricity bill?: No Do you have trouble taking care of your child, family member or friend?: No Do you have trouble with day-to-day activities such as bathing, preparing meals, shopping, managing finances, etc.?: Yes Are you currently unemployed and looking for a job?: No Are you interested in more education?: No Please select the resources that you would like help with: None Currently or been in a relationship where the following occur: No concerns reported THRIVE Score: 0 AUDIT C Alcohol Use Questionnaire (AUDIT-C) 1. How often do you have a drink containing alcohol?: Never Total Score: 0 JIE-7 AMB Questionnaire JIE-7 Date JIE - 7 assessed: 11/07/24 Feeling nervous, anxious, or on edge: 0 = Not at all Not being able to stop or control worryin = Not at all Worrying too much about different things: 0 = Not at all Trouble relaxin = Not at all Being so restless that it is hard to sit still: 0 = Not at all Becoming easily annoyed or irritable: 0 = Not at all Feeling afraid as if something awful might happen: 0 = Not at all Total JIE-7 score (0-4 normal; 5-9 mild; 10-14 moderate; 15-21 severe): 0 Source: Developed by Drs. Ney Mcwilliams, Saloni Spencer, Jorge Petty and colleagues, with an educational lisa from [employer]. ACT Questionnaire In the past 4 weeks, how much of the time did your asthma keep you from getting as much done at work, school or at home?: None of the time During the past 4 weeks, how often have you had shortness of breath?: Not at all During the past 4 weeks, how often did your asthma symptoms wake you up at night or earlier than usual in the morning?: Not at all During the past 4 weeks, how often have you had to use your rescue inhaler or nebulizer medication?: Not at all How would you rate your asthma control during the past 4 weeks?: Well controlled ACT Interpretation: Negative Score: 24 Review of Systems Const Denies fever(s), Denies frequent falls, Denies lethargy, Denies malaise and Reports weight loss Eyes Details: Goes to [facility] in [place] Reports blurry vision and Denies change in vision ENT Reports no additional complaints Card Denies chest pain, Denies rapid heart rate and Denies lightheadedness Resp Reports no additional complaints GI Denies abdominal pain, Denies melena, Denies change in bowel habits and Denies heartburn Denies hematuria and Reports urinary incontinence Musc Reports arthralgias (Both knees) and Reports stiffness Skin/Breast Denies breast pain, Denies breast mass and Denies rash Neuro Denies frequent falls Psych Reports no additional complaints Endo Reports no additional complaints Lázaro/Lymph Denies easy bleeding and Denies easy bruising Aller/Immun Reports no additional complaints Physical exam (Primary Care) Vital Signs: Last Vital Signs Temp 98.0 F 06/22/25 07:55 Pulse 88 06/22/25 07:55 Resp 17 06/22/25 07:55 BP 132/70 06/22/25 07:55 Pulse Ox 94 06/22/25 07:55 Oxygen Delivery Method Room Air 06/22/25 07:55 BMI result Body Mass Index 46.9 Tobacco/Smoking Status: Tobacco use Status Tobacco use date assessed 06/22/25 06/22/25 08:07 Patient Tobacco Use Status Former Tobacco user 06/22/25 07:55 Tobacco use type Cigarette 06/22/25 07:55 e-Cigarette/Vaping Use Never Used 06/22/25 07:55 PHQ-9: PHQ-9 Score PHQ-9: Total score 0 06/22/25 08:07 Depression Screening Interpretation: Negative Thrive Assessment: Date of Thrive Assessment Date Thrive assessed 09/05/24 06/22/25 07:55 Currently or been in a relationship where the following occur: No concerns reported Const Other: Morbidly obese, alert, oriented x3, ambulatory with assistance of a cane, daughter present during visit [facility] Head: Yes normocephalic General nose exam: Normal external nose present Face and sinus: Yes face symmetric Mouth: Normal oral and palatal mucosa present and moist mucous membranes Eyes General: appearance normal, both eyes and all related structures Neck Neck: Yes full ROM, Yes no lymphadenopathy, Yes no meningeal signs and Yes supple Resp Effort & Inspection: normal respiratory effort and able to speak in complete sentences Auscultation: clear to auscultation bilaterally Cardio Other: Regular rate and rhythm, with pacemaker, high-pitched blowing early systolic murmur present on upper right sternal border GI Other: Morbidly obese, normal bowel sounds soft,, Inspection: Yes Abdominal panniculus present Palpation (GI): Soft to palpation, nontender, no guarding and no masses Auscultation: normal bowel sounds General: Yes no CVA tenderness Back/Spine/Pelvis Back: no CVA tenderness and No back tenderness Skin General skin exam: no rashes or lesions noted Neuro General: moves all extremities, Normal light touch and pain sensation, no meningeal signs and no focal motor deficits Extrem Other: lower extremity lymphedema present Psych Appearance: grossly normal Mental Status: mental status grossly normal Speech and movement: Normal speech and movement present Affect: normal affect Coding Level of Care Code Est Pt Level 4 (61748) Complex EM visit Add On G2211 Diagnoses Essential hypertension I10 Coronary artery disease involving [place] coronary artery of [place] heart without angina pectoris I25.10 Permanent atrial fibrillation I48.21 Atrial fibrillation type: permanent Dyslipidemia E78.5 Pericardial effusion I31.39 Chronic kidney disease N18.9 Mild intermittent asthma without complication J45.20 Asthma complication type: uncomplicated History of aortic stenosis Z86.79 Glaucoma H40.9 Glaucoma type: unspecified Lymphedema of both lower extremities I89.0 Additional Codes Asthma Control Questionnaire - ACT Interpretation: Negative ([id number]) Assessment & Plan Assessment & Plan (1) Essential hypertension: Code(s): I10 - Essential (primary) hypertension Category: Medical Plan: Blood pressure appears to be well controlled continued carvedilol 6.25 mg 1 tablet twice a day, (2) Coronary artery disease involving [place] coronary artery of [place] heart without angina pectoris: Code(s): I25.10 - Atherosclerotic heart disease of [place] coronary artery without angina pectoris Category: Medical Plan: Continue on secondary preventive therapy for CAD, which includes continuing rosuvastatin 20 mg daily, and carvedilol and isosorbide mononitrate at the same dose (3) Atrial fibrillation: Comment: sees Dr Dee , [facility] Code(s): I48.91 - Unspecified atrial fibrillation Category: Medical Qualifiers: Atrial fibrillation type: permanent Qualified Code(s): I48.21 - Permanent atrial fibrillation Plan: Continued on apixaban (4) Dyslipidemia: Code(s): E78.5 - Hyperlipidemia, unspecified Category: Medical Plan: Fasting labs have been done this morning, with results still pending. Currently on rosuvastatin 20 mg daily (5) Pericardial effusion: Code(s): I31.39 - Other pericardial effusion (noninflammatory) Category: Medical Plan: Currently being followed by Cardiology, history of pericardial effusion that was deemed to be secondary to micro perforations after her pacemaker placement, status post pericardiocentesis 01/25/2025 due to increased size of effusion. She had follow-up echocardiograms which only showed residual trivial pericardial effusion, unchanged from previous. There has been no evidence of any significant pericardial fluid reaccumulation on her serial echocardiographic monitoring, she is scheduled for repeat echocardiogram on September 2025, ordered by her technology assistant (6) Chronic kidney disease: Code(s): N18.9 - Chronic kidney disease, unspecified Category: Medical Plan: Avoidance of NSAIDs, and stressed importance of getting blood pressure well controlled (7) Mild intermittent asthma: Code(s): J45.20 - Mild intermittent asthma, uncomplicated Category: Medical Qualifiers: Asthma complication type: uncomplicated Qualified Code(s): J45.20 - Mild intermittent asthma, uncomplicated Plan: Currently on Symbicort, rarely needing to use her albuterol inhaler. Up-to-date with her flu and and pneumococcal vaccine as well as COVID booster (8) History of aortic stenosis: Code(s): Z86.79 - Personal history of other diseases of the circulatory system Plan: Status post TAVR (9) Glaucoma: Code(s): H40.9 - Unspecified glaucoma Category: Medical Qualifiers: Glaucoma type: unspecified Plan: Currently followed at [facility] in [place] (10) Lymphedema of both lower extremities: Code(s): I89.0 - Lymphedema, not elsewhere classified Category: Medical Plan: Currently on furosemide 20 mg daily in a.m. Medications: Changed From furosemide 20 mg PO DAILY PRN 20 tabs 0RF fluid overload To furosemide 20 mg PO DAILY
[2025-06-22 07:55] VITALS: BP 132/70; PULSE 88; RESP 17; TEMP 36.7; O2SAT 94; BMI 46.9
--- OUTSIDE RECORDS SUMMARY | 2025-06-22 07:59 | XMS_ITS | Patient Health Record ---
[facility] Address [address] [place] [address] Care Team Providers Care Anti Tank Missileman Name Role Phone Mejia JOHNSON, Shantelle Bee Primary Care Provider Un available Franki Gupta Unavailable [phone] Suad Littlejohn Unavailable [phone] Allergies No Known Allergies Reason For Referral No Information Medications Medication SIG (Take, Route, Frequency, Duration) Notes Start Date End Date Status Carvedilol 6.25 MG 1 tablet with food Orally Twice a day Active Aspirin Low Dose 81 MG 1 tablet Orally O nce a day Not-Taking Vitamin D3 Active Fish Oil 1000 MG 1 capsule Orally Onc e a day Active Centrum Silver Activ e Iron Active PreserVision AREDS 2 Active Rosuvastatin Calcium 20 MG 1 tablet Orally Once a day Active Colchicine 0.6 MG 1 tablet Orally Active Eliquis 5 MG 1 tablet Orally Twic e a day Active Metoprolol Succinate ER 100 MG 1 tablet Orally Once a day Active Albuterol Active Symbicort Active Isosorbide Mononitrate Active Furosemide 20 MG 1 tablet Orally Once a day Active Immunizations Vaccine Route Administration Date Status Comme nts Influenza Unknown 04/03/2024 Administered Influenza Unknown 05/05/2025 Administered Social History Tobacco Use: Social History Observation [...] ast year? No Points 0 Interpretation Negative Problems Problem Type SNOMED Code ICD Code Onset Dates Problem Status W/U Status Risk Notes Problem Bilateral atherosclerosis of arteries of lower limbs (disorder) ([id number] ) Atherosclerosis of zuni artery of both lower extremities, with unspecified presence of clinical manifestation (I70.203) Active confirmed Vital Signs Blood pressure diastolic 65 mm Hg 06/19/2025 Height 5 ft in 06/19/2025 Blood pressure systolic 126 mm Hg 06/19/2025 Weight 241 lbs 06/19/2025 BMI 47.06 kg/m2 06/19/2025 Procedures Procedure Date Ordered Date Performed Result Body Sit e 48813-PPOOZFY NAIL, 6 OR MORE 07/26/2024 N/A 62413-UQQG SKIN LESIONS, 2 TO 4 07/26/2024 N/A 81440-REDXFKI NAIL, 6 OR MORE 12/16/2024 N/A 76804-PCJZ SKIN LESIONS, 2 TO 4 12/16/2024 N/A 52963-DFPRRIA NAIL, 6 OR MORE 03/24/2025 N/A 83151-Lbjkcqvb Plate 03/24/2025 N/A 27344-PQUC SKIN LESIONS, 2 TO 4 03/24/2025 N/A 05412-BARJEWW NAIL, 6 OR MORE 06/19/2025 N/A 87065-Dobczmdo Plate 06/19/2025 N/A 65366-GDYF SKIN LESIONS, 2 TO 4 06/19/2025 N/A Encounters Encounter Location Date [facility] [address] [place] [address] 07/26/2024 Franki Gupta Atherosclerosis of zuni artery of both lower extremities, with unspecified presence of clinical manifestation I70.203 ; Tinea unguium B35.1 ; Pain in right toe(s) M79.674 and Pain in left toe(s) M79.675 [facility] [address] 12/16/2024 Suad Littlejohn Atherosclerosis of zuni artery of both lower extremities, with unspecified presence of clinical manifestation I70.203 ; Tinea unguium B35.1 ; Pain in right toe(s) M79.674 and Pain in left toe(s) M79.[address] [address] 03/24/2025 Franki Gupta Atherosclerosis of zuni artery of both lower extremities, with unspecified presence of clinical manifestation I70.203 ; Tinea unguium B35.1 ; Pain in right toe(s) M79.674 ; Pain in left toe(s) M79.675 and Ingrown nail L60.[address] [address] 06/19/2025 Suad Littlejohn Atherosclerosis of zuni artery of both lower extremities, with unspecified presence of clinical manifestation I70.203 ; Tinea unguium B35.1 ; Pain in right toe(s) M79.674 ; Pain in left toe(s) M79.675 and Ingrown nail L60.[address] [address] 10/31/2024 Franki Gupta [address] [address] 03/28/2025 Franki Gupta Assessments Encounter Date Diagnosis (ICD Code) Assessment Notes Treatment Notes Treatment Clinical Notes Section Notes 07/26/2024 Tinea unguium (ICD-10 - B35.1) 07/26/2024 Atherosclerosis of zuni artery of both lower extremities, with unspecified presence of clinical manifestation (ICD-10 - I70.203) 12/16/2024 Tinea unguium (ICD-10 - B35.1) 12/16/2024 Atherosclerosis of zuni artery of both lower extremities, with unspecified presence of clinical manifestation (ICD-10 - I70.203) 03/24/2025 Tinea unguium (ICD-10 - B35.1) 03/24/2025 Atherosclerosis of zuni artery of both lower extremities, with unspecified presence of clinical manifestation (ICD-10 - I70.203) 06/19/2025 Tinea unguium (ICD-10 - B35.1) 06/19/2025 Atherosclerosis of zuni artery of both lower extremities, with unspecified presence of clinical manifestation (ICD-10 - I70.203) 06/19/2025 Pain in right toe(s) (ICD-10 - M79.674) 03/24/2025 Pain in right toe(s) (ICD-10 - M79.674) 07/26/2024 Pain in right toe(s) (ICD-10 - M79.674) 12/16/2024 Pain in right toe(s) (ICD-10 - M79.674) 12/16/2024 Pain in left toe(s) (ICD-10 - M79.675) 07/26/2024 Pain in left toe(s) (ICD-10 - M79.675) 03/24/2025 Pain in left toe(s) (ICD-10 - M79.675) 06/19/2025 Pain in left toe(s) (ICD-10 - M79.675) 03/24/2025 Ingrown nail (ICD-10 - L60.0) 06/19/2025 Ingrown nail (ICD-10 - L60.0) Plan Of Treatment Pending Test Test Name Order Date 28904-MBCTQYT NAIL, 6 OR MORE 09/18/2023 82809-GQVFSTE NAIL, 6 OR MORE 11/27/2023 06577-KNWWSIB NAIL, 6 OR MORE 02/12/2024 31613-IJOUDVS NAIL, 6 OR MORE 04/22/2024 30788-MGOUUPK NAIL, 6 OR MORE 07/26/2024 64566-YJLGFDL NAIL, 6 OR MORE 12/16/2024 29280-BKNARHW NAIL, 6 OR MORE 03/24/2025 96947-BXPQBPO NAIL, 6 OR MORE 06/19/2025 49764-Ooswyyeb Plate 06/19/2025 23539-Nnfqjbap Plate 02/12/2024 64492-Gzdthxok Plate 11/27/2023 51156-Bhupttfj Plate 09/18/2023 26114-Drdoleuw Plate 03/24/2025 63411-EZOC SKIN LESIONS, 2 TO 4 09/18/19 62922-NJBP SKIN LESIONS, 2 TO 4 11/27/19 99067-DFRQ SKIN LESIONS, 2 TO 4 02/12/20 83975-KQUN SKIN LESIONS, 2 TO 4 04/22/20 70707-OKEC SKIN LESIONS, 2 TO 4 06/19/20 57020-HECF SKIN LESIONS, 2 TO 4 03/24/20 46817-PIZU SKIN LESIONS, 2 TO 4 12/17/19 74429-WPYK SKIN LESIONS, 2 TO 4 07/26/20 Next Appt Details Provider Name:Franki Gupta , 09/26/2025 03:45:00 PM, [address] [place] [address], [phone], Insurance Providers Payer Name Payer Address Payer Phone Subscriber Number Group Number Insured Name Patient Relationship to Insured Coverage Start Date Coverage End Date [facility] Medicare Complete [address] [address] [place] [address] [id number] Preeti Antoine Self - patient is the insured Medical (General) History Medical History History ICD Code Arthritis Knee pain CAD (Cholesterol) Diverticulosis Heart disease High blood pressure asthma Pacemaker- serial [id number] Surgical History Surgery Date(Month/Year) pacemaker 10/27/24 TAVR 11/17/24 Hospitalization History Reason Date(Month/Year) Cardiac Pacemaker 2024
== END 2025-06-22 08:58 | disposition home or self-care (01) ==
LOC: HO.HMCC 07:51
PROVIDERS: PCP Internal Medicine; Visit Provider Internal Medicine
DX: I12.9 Hypertensive chronic kidney disease with stage 1 through stage 4 chronic kidney disease, or unspecified chronic kidney disease (principal); I25.10 Atherosclerotic heart disease of native coronary artery without angina pectoris; I48.21 Permanent atrial fibrillation; E78.5 Hyperlipidemia, unspecified; I31.39 Other pericardial effusion (noninflammatory); N18.9 Chronic kidney disease, unspecified; J45.20 Mild intermittent asthma, uncomplicated; Z86.79 Personal history of other diseases of the circulatory system; H40.9 Unspecified glaucoma; I89.0 Lymphedema, not elsewhere classified